=== PATIENT | female | born 1955 | race Asian ===

== ENCOUNTER 2020-01-30 06:20 | Outpatient (REF) | payer OTHER, SELFPAY ==
[2020-01-30 07:45] LABS: MANUAL DIFF FLAG NO
[2020-01-30 07:51] LABS: Basophils Absolute Auto 0.1 X10*3/uL (0.0-0.2); Basophils Percent Auto 0.6 % (0-2); Eosinophils Absolute Auto 0.3 X10*3/uL (0.0-0.4); Eosinophils Percent Auto 2.1 % (0-4); Hematocrit 41.2 % (37-47); Hemoglobin 13.5 g/dl (12.0-16.0); Imm Gran Abs Auto 0.05 X10*3/uL (0.00-0.03); Imm Gran Pct Auto 0.4 % (0.0-0.4); Lymphocytes Absolute Auto 4.1 X10*3/uL (1.2-4.9); Mean Corpuscular HGB Conc 32.8 g/dl (31.0-35.0); Mean Corpuscular Hemoglobin 29.7 pg (27.0-33.0); Mean Corpuscular Volume 90.7 fL (80-98); Monocytes Absolute Auto 0.8 X10*3/uL (0.1-1.2); Monocytes Percent Auto 6.5 % (2-11); Neutrophils Absolute Auto 7.4 X10*3/uL (2.0-8.3); Neutrophils Percent Auto 58.4 % (45-73); Platelet Count 277 X10*3/uL (160-400); Red Blood Count 4.54 X10*6/uL (4.20-5.50); Red Cell Distribution Width 12.6 % (11.0-16.0); White Blood Count 12.7 X10*3/uL (4.8-10.8)
[2020-01-30 08:13] LABS: Glucose Urine UA NEG (NEG); Leukocyte Esterase Urine TRACE (NEG); Nitrite Urine NEG (NEG); Urine Blood 1+ (NEG); Urine Ketones NEG (NEG); Urine Protein NEG (NEG-TRACE)
[2020-01-30 08:16] LABS: Appearance Urine HAZY; Color Urine YELLOW
[2020-01-30 08:20] LABS: Alanine Aminotransferase 25 U/L (0-31); Albumin Level 4.4 g/dL (3.5-5.0); Alkaline Phosphatase 77 U/L (39-117); Anion Gap 15 (12-20); Aspartate Amino Transferase 23 U/L (5-31); Bilirubin Total 0.5 mg/dL (0.0-1.0); Blood Urea Nitrogen 16 mg/dL (9-16); Calcium 9.3 mg/dL (8.4-10.2); Carbon Dioxide 26 mmol/L (22-29); Chloride 102 mmol/L (96-108); Cholesterol 160 mg/dL; Estimated Glomerular Filt Rate > 60; Glucose Fasting 100 mg/dL (60-99); HDL Cholesterol 51 mg/dL; LDL Cholesterol Calculated 67 mg/dl; Potassium 4.4 mmol/l (3.3-5.1); Sodium 139 mmol/L (135-145); Total Protein 7.5 g/dL (6.5-8.0); Triglycerides 213 mg/dL
[2020-01-30 08:30] LABS: TSH reflex Free T4 5.13 mIU/mL (0.32-4.0); Vitamin D 25-OH Total 42.2 ng/mL (>30)
[2020-01-30 08:39] LABS: Bacteria Urine 2+ /LPF; Mucus Urine 1+ /LPF; Renal Epithelial Cells Urine TRACE /LPF; Squamous Epithelial Cell Urine 1+ /LPF
[2020-01-30 09:14] LABS: Folate 5.4 ng/mL (> or = 4.0); Vitamin B12 640 pg/mL (200-900)
[2020-01-30 09:33] LABS: Free T4 (Free Thyroxine) 1.04 ng/dL (0.71-1.85)
[2020-01-30 10:09] LABS: Creatinine Urine 92.96 mg/dL; Microalbum/Creatinine Ratio Ur 7.5 ug/mg cr
== END 2020-01-30 06:21 | disposition home or self-care (01) ==
LOC: HO.LAB 06:20
PROVIDERS: Visit Provider Internal Medicine
DX: Z00.00 Encounter for general adult medical examination without abnormal findings (principal); E11.9 Type 2 diabetes mellitus without complications; E78.5 Hyperlipidemia, unspecified; R20.2 Paresthesia of skin; J30.9 Allergic rhinitis, unspecified; E55.9 Vitamin D deficiency, unspecified; E66.3 Overweight
CPT/HCPCS: 36415; 80053; 80061; 81001; 81003; 82043; 82306; 82607; 82746; 84439; 84443; 85025; 87086; 87088; 87186

== ENCOUNTER 2020-06-25 06:09 | Outpatient (REF) | payer OTHER, SELFPAY ==
[2020-06-25 07:54] LABS: MANUAL DIFF FLAG NO
[2020-06-25 08:06] LABS: Basophils Absolute Auto 0.1 X10*3/uL (0.0-0.2); Basophils Percent Auto 0.6 % (0-2); Eosinophils Absolute Auto 0.3 X10*3/uL (0.0-0.4); Eosinophils Percent Auto 3.2 % (0-4); Hematocrit 39.7 % (37-47); Hemoglobin 13.2 g/dl (12.0-16.0); Imm Gran Abs Auto 0.04 X10*3/uL (0.00-0.03); Imm Gran Pct Auto 0.4 % (0.0-0.4); Lymphocytes Absolute Auto 3.4 X10*3/uL (1.2-4.9); Lymphocytes Percent Auto 33.9 % (20-40); Mean Corpuscular HGB Conc 33.2 g/dl (31.0-35.0); Mean Corpuscular Hemoglobin 30.8 pg (27.0-33.0); Mean Corpuscular Volume 92.5 fL (80-98); Mean Platelet Volume 9.7 fL (9.4-12.3); Monocytes Absolute Auto 0.7 X10*3/uL (0.1-1.2); Neutrophils Absolute Auto 5.5 X10*3/uL (2.0-8.3); Neutrophils Percent Auto 54.9 % (45-73); Platelet Count 291 X10*3/uL (160-400); Red Blood Count 4.29 X10*6/uL (4.20-5.50); Red Cell Distribution Width 12.5 % (11.0-16.0); White Blood Count 10.1 X10*3/uL (4.8-10.8)
[2020-06-25 08:31] LABS: Glucose Urine UA NEG (NEG); Leukocyte Esterase Urine NEG (NEG); Nitrite Urine POS (NEG); PH 5.5 (5.0-8.0); Specific Gravity - Urine >= 1.030 (1.005-1.025); UACC Culture Trigger YES; Urine Blood 1+ (NEG); Urine Ketones NEG (NEG); Urine Protein NEG (NEG-TRACE)
[2020-06-25 08:32] LABS: Alanine Aminotransferase 21 U/L (0-31); Albumin Level 4.1 g/dL (3.5-5.0); Alkaline Phosphatase 80 U/L (39-117); Anion Gap 13 (12-20); Aspartate Amino Transferase 17 U/L (5-31); Bilirubin Total 0.6 mg/dL (0.0-1.0); Blood Urea Nitrogen 17 mg/dL (9-16); Calcium 9.2 mg/dL (8.4-10.2); Carbon Dioxide 27 mmol/L (22-29); Chloride 104 mmol/L (96-108); Cholesterol 183 mg/dL; Estimated Glomerular Filt Rate > 60; Glucose Fasting 151 mg/dL (60-99); HDL Cholesterol 44 mg/dL; LDL Cholesterol Calculated 104 mg/dl; Potassium 4.4 mmol/L (3.3-5.1); Sodium 140 mmol/L (135-145); Total Protein 7.1 g/dL (6.5-8.0); Triglycerides 178 mg/dL
[2020-06-25 08:37] LABS: TSH reflex Free T4 3.62 uIU/mL (0.32-4.0)
[2020-06-25 08:41] LABS: Appearance Urine HAZY; Color Urine YELLOW
[2020-06-25 08:54] LABS: Bacteria Urine 4+ /LPF; Calcium Oxalate Crystals Urine 1+ /LPF; RBC Urine 0 /HPF (0); Squamous Epithelial Cell Urine 2+ /LPF; Uric Acid Crystals Urine 1+ /LPF
[2020-06-25 09:00] LABS: Creatinine Urine 200.51 mg/dL; Microalbum/Creatinine Ratio Ur 6.9 ug/mg cr
== END 2020-06-25 06:10 | disposition home or self-care (01) ==
LOC: HO.LAB 06:09
PROVIDERS: PCP Internal Medicine; Visit Provider Internal Medicine
DX: Z00.00 Encounter for general adult medical examination without abnormal findings (principal); E66.9 Obesity, unspecified; E11.9 Type 2 diabetes mellitus without complications; E78.00 Pure hypercholesterolemia, unspecified
CPT/HCPCS: 36415; 80053; 80061; 81001; 81003; 82043; 84443; 85025; 87086; 87088; 87186

== ENCOUNTER 2021-03-05 05:50 | Outpatient (REF) | payer OTHER, SELFPAY ==
[2021-03-05 06:13] LABS: MANUAL DIFF FLAG NO
[2021-03-05 08:19] LABS: Basophils Absolute Auto 0.1 X10*3/uL (0.0-0.2); Basophils Percent Auto 0.5 % (0-2); Eosinophils Absolute Auto 0.3 X10*3/uL (0.0-0.4); Eosinophils Percent Auto 2.2 % (0-4); Hematocrit 39.7 % (37.0-47.0); Imm Gran Abs Auto 0.04 X10*3/uL (0.00-0.03); Imm Gran Pct Auto 0.4 % (0.0-0.4); Lymphocytes Absolute Auto 3.3 X10*3/uL (1.2-4.9); Lymphocytes Percent Auto 29.2 % (20-40); Mean Corpuscular HGB Conc 32.7 g/dl (31.0-35.0); Mean Corpuscular Hemoglobin 29.6 pg (27.0-33.0); Mean Corpuscular Volume 90.4 fL (80.0-98.0); Mean Platelet Volume 10.7 fL (9.4-12.3); Monocytes Absolute Auto 0.7 X10*3/uL (0.1-1.2); Monocytes Percent Auto 5.9 % (2-11); Neutrophils Percent Auto 61.8 % (45-73); Platelet Count 300 X10*3/uL (160-400); Red Blood Count 4.39 X10*6/uL (4.20-5.50); Red Cell Distribution Width 12.4 % (11.0-16.0); White Blood Count 11.3 X10*3/uL (4.8-10.8)
[2021-03-05 08:21] LABS: Appearance Urine HAZY; Color Urine YELLOW; Glucose Urine UA NEG (NEG); Leukocyte Esterase Urine NEG (NEG); Nitrite Urine POS (NEG); Specific Gravity - Urine 1.025 (1.005-1.025); UACC Culture Trigger YES; Urine Blood NEG (NEG); Urine Ketones 5 MG/DL (NEG); Urine Protein TRACE MG/DL (NEG-TRACE)
[2021-03-05 08:38] LABS: Estimated Average Glucose 154 mg/dL
[2021-03-05 08:43] LABS: Alanine Aminotransferase 22 U/L (0-31); Albumin Level 3.9 g/dL (3.5-5.0); Alkaline Phosphatase 81 U/L (39-117); Anion Gap 13 (12-20); Aspartate Amino Transferase 17 U/L (5-31); Bilirubin Total 0.5 mg/dL (0.0-1.0); Blood Urea Nitrogen 12 mg/dL (9-16); Calcium 9.1 mg/dL (8.4-10.2); Carbon Dioxide 25 mmol/L (22-29); Chloride 107 mmol/L (96-108); Cholesterol 143 mg/dL; Estimated Glomerular Filt Rate > 60; Glucose Fasting 163 mg/dL (60-99); HDL Cholesterol 39 mg/dL; LDL Cholesterol Calculated 49 mg/dl; Potassium 3.9 mmol/L (3.3-5.1); Sodium 141 mmol/L (135-145); Triglycerides 275 mg/dL
[2021-03-05 08:48] LABS: Creatinine Urine 281.32 mg/dL; Microalbum/Creatinine Ratio Ur 13.1 ug/mg cr
[2021-03-05 08:51] LABS: Bacteria Urine 3+ /LPF; Calcium Oxalate Crystals Urine 2+ /LPF; RBC Urine 0-2 /HPF (0); Squamous Epithelial Cell Urine 2+ /LPF
[2021-03-05 09:07] LABS: TSH reflex Free T4 5.17 uIU/mL (0.32-4.0); Vitamin D 25-OH Total 29.7 ng/mL (>30)
[2021-03-05 10:10] LABS: Free T4 (Free Thyroxine) 0.99 ng/dL (0.71-1.85)
== END 2021-03-05 05:51 | disposition home or self-care (01) ==
LOC: HO.LAB 05:50
PROVIDERS: PCP Internal Medicine; Visit Provider Internal Medicine
DX: E11.9 Type 2 diabetes mellitus without complications (principal); E78.00 Pure hypercholesterolemia, unspecified; E66.9 Obesity, unspecified; E55.9 Vitamin D deficiency, unspecified; J30.9 Allergic rhinitis, unspecified
CPT/HCPCS: 36415; 80053; 80061; 81001; 82043; 82306; 83036; 84439; 84443; 85025; 87086; 87088; 87186

== ENCOUNTER 2021-08-19 06:03 | Outpatient (REF) | payer OTHER, SELFPAY ==
[2021-08-19 06:28] LABS: MANUAL DIFF FLAG NO
[2021-08-19 07:28] LABS: Basophils Absolute Auto 0.1 X10*3/uL (0.0-0.2); Basophils Percent Auto 0.8 % (0-2); Eosinophils Absolute Auto 0.3 X10*3/uL (0.0-0.4); Eosinophils Percent Auto 2.6 % (0-4); Hematocrit 40.1 % (37.0-47.0); Hemoglobin 13.1 g/dl (12.0-16.0); Imm Gran Abs Auto 0.04 X10*3/uL (0.00-0.03); Imm Gran Pct Auto 0.3 % (0.0-0.4); Lymphocytes Absolute Auto 3.7 X10*3/uL (1.2-4.9); Lymphocytes Percent Auto 31.8 % (20-40); Mean Corpuscular HGB Conc 32.7 g/dl (31.0-35.0); Mean Corpuscular Hemoglobin 30.1 pg (27.0-33.0); Mean Corpuscular Volume 92.2 fL (80.0-98.0); Mean Platelet Volume 10.5 fL (9.4-12.3); Monocytes Absolute Auto 0.8 X10*3/uL (0.1-1.2); Monocytes Percent Auto 6.8 % (2-11); Neutrophils Absolute Auto 6.8 x10*3/uL (2.0-8.3); Neutrophils Percent Auto 57.7 % (45-73); Platelet Count 313 X10*3/uL (160-400); Red Blood Count 4.35 X10*6/uL (4.20-5.50); Red Cell Distribution Width 12.5 % (11.0-16.0); White Blood Count 11.8 X10*3/uL (4.8-10.8)
[2021-08-19 07:58] LABS: Alanine Aminotransferase 19 U/L (0-31); Albumin Level 4.1 g/dL (3.5-5.0); Alkaline Phosphatase 83 U/L (39-117); Anion Gap 15 (12-20); Aspartate Amino Transferase 16 U/L (5-31); Bilirubin Total 0.4 mg/dL (0.0-1.0); Blood Urea Nitrogen 20 mg/dL (9-16); Calcium 9.3 mg/dL (8.4-10.2); Carbon Dioxide 23 mmol/L (22-29); Chloride 107 mmol/L (96-108); Cholesterol 164 mg/dL; Estimated Glomerular Filt Rate > 60; Glucose Fasting 133 mg/dL (60-99); HDL Cholesterol 35 mg/dL; LDL Cholesterol Calculated 60 mg/dl; Potassium 4.2 mmol/L (3.3-5.1); Sodium 141 mmol/L (135-145); Total Protein 7.3 g/dL (6.5-8.0); Triglycerides 346 mg/dL
[2021-08-19 08:01] LABS: Estimated Average Glucose 148 mg/dL; Hemoglobin A1c % 6.8 %
[2021-08-19 08:52] LABS: Appearance Urine HAZY; Color Urine YELLOW; Glucose Urine UA NEG (NEG); Leukocyte Esterase Urine TRACE (NEG); Nitrite Urine NEG (NEG); Specific Gravity - Urine 1.025 (1.005-1.025); UACC Culture Trigger NO; Urine Blood TRACE (NEG); Urine Ketones NEG (NEG); Urine Protein NEG (NEG-TRACE)
[2021-08-19 09:10] LABS: Bacteria Urine 3+ /LPF; Squamous Epithelial Cell Urine 2+ /LPF; UACC CULT YES
[2021-08-19 09:36] LABS: Creatinine Urine 153.94 mg/dL; Microalbum/Creatinine Ratio Ur 7.1 ug/mg cr
== END 2021-08-19 06:04 | disposition home or self-care (01) ==
LOC: HO.LAB 06:03
PROVIDERS: PCP Internal Medicine; Visit Provider Internal Medicine
DX: E11.9 Type 2 diabetes mellitus without complications (principal); E78.00 Pure hypercholesterolemia, unspecified; E55.9 Vitamin D deficiency, unspecified; J30.9 Allergic rhinitis, unspecified; B96.20 Unspecified Escherichia coli [E. coli] as the cause of diseases classified elsewhere; Z16.20 Resistance to unspecified antibiotic
CPT/HCPCS: 36415; 80053; 80061; 81001; 82043; 82306; 83036; 84439; 84443; 85025; 87086; 87088; 87186

== ENCOUNTER 2022-03-13 07:18 | Outpatient (REF) | payer OTHER, SELFPAY ==
[2022-03-13 07:36] LABS: MANUAL DIFF FLAG NO
[2022-03-13 07:56] LABS: Basophils Absolute Auto 0.1 X10*3/uL (0.0-0.2); Basophils Percent Auto 0.6 % (0-2); Eosinophils Absolute Auto 0.2 X10*3/uL (0.0-0.4); Hematocrit 39.9 % (37.0-47.0); Hemoglobin 13.2 g/dl (12.0-16.0); Imm Gran Abs Auto 0.03 X10*3/uL (0.00-0.03); Imm Gran Pct Auto 0.3 % (0.0-0.4); Lymphocytes Absolute Auto 3.7 X10*3/uL (1.2-4.9); Lymphocytes Percent Auto 36.9 % (20-40); Mean Corpuscular HGB Conc 33.1 g/dl (31.0-35.0); Mean Corpuscular Volume 90.7 fL (80.0-98.0); Mean Platelet Volume 9.8 fL (9.4-12.3); Monocytes Absolute Auto 0.6 X10*3/uL (0.1-1.2); Monocytes Percent Auto 6.4 % (2-11); Neutrophils Absolute Auto 5.3 x10*3/uL (2.0-8.3); Neutrophils Percent Auto 53.8 % (45-73); Platelet Count 268 X10*3/uL (160-400); Red Cell Distribution Width 12.7 % (11.0-16.0); White Blood Count 9.9 X10*3/uL (4.8-10.8)
[2022-03-13 08:11] LABS: Estimated Average Glucose 146 mg/dL; Hemoglobin A1c % 6.7 %
[2022-03-13 09:04] LABS: Appearance Urine Cloudy; Color Urine Dark Yellow; Glucose Urine UA Negative (Negative); Leukocyte Esterase Urine Small (1+) (Negative); Nitrite Urine Negative (Negative); PH 5.5 (5.0-9.0); Specific Gravity - Urine 1.025 (1.005-1.025); UMIC TRIGGER UACC YES; Urine Blood Negative (Negative); Urine Ketones Trace mg/dL (Negative); Urine Protein Trace mg/dL (Neg-Trace)
[2022-03-13 09:09] LABS: Bacteria Urine 4+ (None Seen); Hyaline Casts Urine 0-2 /LPF (0-2); RBC Urine 0-2 /HPF (0-2); UACC Culture Trigger YES; WBC Urine 21-50 /HPF (0-5)
[2022-03-13 10:06] LABS: Creatinine Urine 258.52 mg/dL; Microalbum/Creatinine Ratio Ur 13.1 ug/mg cr
[2022-03-13 10:50] LABS: Alanine Aminotransferase 21 U/L (0-31); Albumin Level 4.1 g/dL (3.5-5.0); Alkaline Phosphatase 78 U/L (39-117); Anion Gap 9 (12-20); Aspartate Amino Transferase 18 U/L (5-31); Bilirubin Total 0.8 mg/dL (0.0-1.0); Blood Urea Nitrogen 11 mg/dL (9-16); Calcium 9.3 mg/dL (8.4-10.2); Carbon Dioxide 30 mmol/L (22-29); Chloride 104 mmol/L (96-108); Estimated Glomerular Filt Rate > 60; Glucose Fasting 150 mg/dL (60-99); Potassium 4.2 mmol/L (3.3-5.1); Sodium 139 mmol/L (135-145); Thyroid Stimulating Hormone 3.88 uIU/mL (0.32-4.0); Total Protein 7.1 g/dL (6.5-8.0); Vitamin D 25-OH Total 43.5 ng/mL (>30)
[2022-03-13 11:32] LABS: Free T4 (Free Thyroxine) 1.03 ng/dL (0.71-1.85)
[2022-03-15 09:13] LABS: Thyroid Peroxidase Antibodies 13 IU/mL (<9)
== END 2022-03-13 07:19 | disposition home or self-care (01) ==
LOC: HO.LAB 07:18
PROVIDERS: PCP Internal Medicine; Visit Provider Internal Medicine
DX: E03.9 Hypothyroidism, unspecified (principal); R79.89 Other specified abnormal findings of blood chemistry; E11.9 Type 2 diabetes mellitus without complications; E78.00 Pure hypercholesterolemia, unspecified; E55.9 Vitamin D deficiency, unspecified; I10 Essential (primary) hypertension
CPT/HCPCS: 36415; 80053; 81001; 81003; 82043; 82306; 83036; 84439; 84443; 85025; 86376; 87086; 87088; 87186

== ENCOUNTER 2022-03-26 06:00 | Outpatient (REF) | payer OTHER, SELFPAY ==
[2022-03-26 08:10] LABS: Cholesterol 168 mg/dL; HDL Cholesterol 45 mg/dL; LDL Cholesterol Calculated 53 mg/dl; Triglycerides 351 mg/dL
[2022-03-26 10:40] LABS: Appearance Urine Hazy; Color Urine Yellow; Glucose Urine UA Negative (Negative); Leukocyte Esterase Urine Negative (Negative); Nitrite Urine Negative (Negative); PH 5.5 (5.0-9.0); Specific Gravity - Urine >= 1.030 (1.005-1.025); UMIC TRIGGER UACC YES; Urine Blood Small (1+) (Negative); Urine Ketones Negative (Negative); Urine Protein Negative (Neg-Trace)
[2022-03-26 11:03] LABS: Bacteria Urine 4+ (None Seen); Calcium Oxalate Crystals Urine Present; UACC Culture Trigger YES
== END 2022-03-26 06:01 | disposition home or self-care (01) ==
LOC: HO.LAB 06:00
PROVIDERS: PCP Internal Medicine; Visit Provider Internal Medicine
DX: Z01.84 Encounter for antibody response examination (principal); E78.00 Pure hypercholesterolemia, unspecified; Z28.39 Other underimmunization status
CPT/HCPCS: 36415; 80061; 81001; 81003; 86787; 87086; 87088; 87186

== ENCOUNTER 2022-08-06 14:26 | Outpatient (REF) | payer OTHER, SELFPAY ==
[2022-08-06 18:11] LABS: CT PCR NOT DETECTED (Not Detect.); NG PCR NOT DETECTED (Not Detect.)
[2022-08-07 09:02] LABS: BV Int Neg Control Negative (Negative); BV Int Pos Control Positive (Positive)
== END 2022-08-06 14:27 | disposition home or self-care (01) ==
LOC: HO.LAB 14:26
PROVIDERS: PCP Internal Medicine; Visit Provider Advanced Practice Midwife
DX: N89.8 Other specified noninflammatory disorders of vagina (principal); Z20.2 Contact with and (suspected) exposure to infections with a predominantly sexual mode of transmission
CPT/HCPCS: 0353U; 87480; 87510; 87660

== ENCOUNTER 2022-08-06 14:54 | Outpatient (REF) | payer OTHER, SELFPAY ==
[2022-08-13 08:04] LABS: HPV mRNA E6/E7 rflx Not Detected (Not Detected)
== END 2022-08-06 14:55 | disposition home or self-care (01) ==
LOC: HO.LNP 14:54
PROVIDERS: Visit Provider Advanced Practice Midwife
DX: Z01.419 Encounter for gynecological examination (general) (routine) without abnormal findings (principal); Z11.51 Encounter for screening for human papillomavirus (HPV)
CPT/HCPCS: 87624; 88142

== ENCOUNTER 2022-08-22 10:28 | Outpatient (REF) | payer OTHER, SELFPAY ==
--- NOTE | ~2022-08-22 | US_ITS ---
EXAM: Pelvic Ultrasound CLINICAL INDICATION: Intra-abdominal and pelvic swelling. COMPARISON: CT abdomen pelvis 06/21/2013 TECHNIQUE: The pelvis was evaluated using transabdominal and transvaginal imaging. FINDINGS: The uterus measures 9.6 x 3.8 x 4.5 cm in longitudinal by AP by transverse dimension. There is overall heterogeneous uterine echotexture with a few small fibroids noted, largest measuring 1.8 cm. The endometrial stripe measures 8 mm in thickness. The left ovary measures approximately 2.0 x 1.1 x 1.7 cm and is normal. The right ovary was not clearly visualized. There are no abnormal adnexal masses. There is no free fluid in the pelvis. US/US pelvic and transvaginal IMPRESSION: 1. Endometrium measures 8 mm in thickness. Neoplasm not excluded. Direct inspection/biopsy likely warranted. 2. Small uterine fibroids. 3. Right ovary not clearly visualized.
== END 2022-08-22 10:29 | disposition home or self-care (01) ==
LOC: HO.US 10:28
PROVIDERS: PCP Internal Medicine; Visit Provider Advanced Practice Midwife
DX: R19.00 Intra-abdominal and pelvic swelling, mass and lump, unspecified site (principal)
CPT/HCPCS: 76830; 76856

== ENCOUNTER → 2022-09-09 07:40 | Outpatient (BNVA) | payer OTHER, SELFPAY | PROVIDERS: PCP Internal Medicine; Visit Provider Advanced Practice Midwife | DX: Z71.2 Person consulting for explanation of examination or test findings (principal); D25.9 Leiomyoma of uterus, unspecified | CPT/HCPCS: 99212 ==

== ENCOUNTER 2022-10-15 06:23 | Outpatient (REF) | payer OTHER, SELFPAY ==
[2022-10-15 06:39] LABS: MANUAL DIFF FLAG NO
[2022-10-15 07:14] LABS: Basophils Absolute Auto 0.1 X10*3/uL (0.0-0.2); Basophils Percent Auto 0.7 % (0-2); Eosinophils Absolute Auto 0.2 X10*3/uL (0.0-0.4); Eosinophils Percent Auto 2.6 % (0-4); Hematocrit 38.1 % (37.0-47.0); Hemoglobin 12.5 g/dl (12.0-16.0); Imm Gran Abs Auto 0.02 X10*3/uL (0.00-0.03); Imm Gran Pct Auto 0.2 % (0.0-0.4); Lymphocytes Absolute Auto 2.7 X10*3/uL (1.2-4.9); Lymphocytes Percent Auto 31.5 % (20-40); Mean Corpuscular HGB Conc 32.8 g/dl (31.0-35.0); Mean Corpuscular Volume 91.6 fL (80.0-98.0); Mean Platelet Volume 10.4 fL (9.4-12.3); Monocytes Absolute Auto 0.6 X10*3/uL (0.1-1.2); Monocytes Percent Auto 6.7 % (2-11); Neutrophils Percent Auto 58.3 % (45-73); Platelet Count 227 X10*3/uL (160-400); Red Blood Count 4.16 X10*6/uL (4.20-5.50); Red Cell Distribution Width 12.6 % (11.0-16.0); White Blood Count 8.6 X10*3/uL (4.8-10.8)
[2022-10-15 07:27] LABS: Estimated Average Glucose 131 mg/dL; Hemoglobin A1c % 6.2 %
[2022-10-15 07:54] LABS: Alanine Aminotransferase 15 U/L (0-31); Albumin Level 3.9 g/dL (3.5-5.0); Alkaline Phosphatase 59 U/L (39-117); Anion Gap 14 (12-20); Aspartate Amino Transferase 13 U/L (5-31); Bilirubin Total 0.6 mg/dL (0.0-1.0); Blood Urea Nitrogen 14 mg/dL (9-16); Carbon Dioxide 22 mmol/L (22-29); Chloride 111 mmol/L (96-108); Cholesterol 129 mg/dL; Estimated Glomerular Filt Rate > 60; Glucose Fasting 132 mg/dL (60-99); HDL Cholesterol 37 mg/dL; LDL Cholesterol Calculated 62 mg/dl; Potassium 3.9 mmol/L (3.3-5.1); Sodium 143 mmol/L (135-145); Total Protein 6.9 g/dL (6.5-8.0); Triglycerides 153 mg/dL
[2022-10-15 08:12] LABS: Free T4 (Free Thyroxine) 0.92 ng/dL (0.71-1.85); Thyroid Stimulating Hormone 2.58 uIU/mL (0.32-4.0); Vitamin D 25-OH Total 42.8 ng/mL (>30)
[2022-10-15 09:28] LABS: Appearance Urine Clear; Color Urine Yellow; Glucose Urine UA Negative (Negative); Leukocyte Esterase Urine Trace (Negative); Nitrite Urine Positive (Negative); Specific Gravity - Urine 1.015 (1.005-1.025); UMIC TRIGGER UACC YES; Urine Blood Trace (Negative); Urine Ketones Negative (Negative); Urine Protein Negative (Neg-Trace)
[2022-10-15 09:37] LABS: Bacteria Urine 4+ (None Seen); Hyaline Casts Urine 0-2 /LPF (0-2); UACC Culture Trigger YES
[2022-10-15 10:53] LABS: Creatinine Urine 99.34 mg/dL
== END 2022-10-15 06:24 | disposition home or self-care (01) ==
LOC: HO.LAB 06:23
PROVIDERS: PCP Internal Medicine; Visit Provider Internal Medicine
DX: I10 Essential (primary) hypertension (principal); E11.9 Type 2 diabetes mellitus without complications; E03.9 Hypothyroidism, unspecified; E55.9 Vitamin D deficiency, unspecified; E78.00 Pure hypercholesterolemia, unspecified; R30.0 Dysuria
CPT/HCPCS: 36415; 80053; 80061; 81001; 82043; 82306; 83036; 84439; 84443; 85025; 87086; 87088; 87186

== ENCOUNTER 2022-10-20 14:07 | Outpatient (AMB) | payer OTHER, SELFPAY ==
[2022-10-20 14:08] VITALS: BP 120/78; PULSE 62; O2SAT 98; BMI 26.6
--- NOTE | 2022-10-20 14:08 | A.OFFPC_ITS ---
Vital Signs 10/20/22 14:08 Height 5 ft 1 in Weight 141 lb BMI 26.6 BP 120/78 Blood Pressure Location Lt brachial Position Sitting Pulse 62 Pulse Source Pulse Oximeter Pulse Oximetry (%) 98 Oxygen Delivery Method Room Air Intake Visit Reasons: 6mth f/u Helpdesk Analyst Required: No Accompanied by: Spouse Allergies Sulfa (Sulfonamide Antibiotics) [SULFA (SULFONAMIDE ANTIBIOTICS)] Allergy (Unknown, Verified 10/20/22 14:41) HIVES, THROAT SWELLING Medication List - Last Reconciled 10/20/22 by Rambo Melchor MD aspirin 81 mg PO DAILY 90 days atorvastatin (Lipitor) 40 mg PO DAILY 90 days blood sugar diagnostic (FreeStyle Lite Strips) As directed once a day cetirizine 10 mg PO DAILY PRN 90 days fluticasone propionate 50 mcg/actuation 2 sprays intranasal DAILY PRN 90 days ibuprofen 800 mg PO Q8H PRN 10 days lancets (FreeStyle Lancets) As directed once a day levothyroxine 25 mcg PO DAILY 90 days metformin ER 500 mg PO BID 90 days Tobacco use date assessed: 10/20/22 Fall risk assessment: No Falls in past year Last assessed Fall Risk: 10/20/22 Dental Screening Dental Screen Date: 10/20/22 Did you have a dental visit in the last 12 months?: Yes Did you have a dental problem in the last 6 months where you did not have access to dental care?: No Was dental information given to patient?: Patient has dentist HPI 6mth f/u HPI Details Patient comes in today for her follow up visit States that she feels okay She denies any headaches or dizziness Still has on and off neck pains but states that her neck pain has been mostly manageable Denies any chest pains, no SOB No nausea/vomiting, no abdominal pain No change in bowel habits noted Had her follow up labs done a few days ago - to discuss her results [facility] Medical History Allergic rhinitis Cervical disc herniation Diabetes mellitus Overweight (BMI 25.0-29.9) Pelvic fullness in female Pure hypercholesterolemia Subclinical hypothyroidism Uterine fibroid Vitamin D deficiency Surgical History History of cervical spinal surgery History of colonoscopy (~12/2014) Family History Father Stroke Mother Diabetes Hypertension Daughter Cervical cancer Social History Housing: House Alcohol intake: current Alcohol intake frequency: holidays/special occasions only Patient Tobacco Use Status: Former Tobacco user e-Cigarette/Vaping Use: Never Used Second Hand Smoke Exposure: Yes service: No Current occupational status: unemployed Sexual orientation: Straight/Heterosexual Gender identity: Female Cognitive needs: No Hearing needs: No Vision needs: Yes Questionnaire PHQ-9 Over the last 2 weeks, how often have you been bothered by any of the following problems? 1. Little interest or pleasure in doing things: not at all 2. Feeling down, depressed, or hopeless: not at all 3. Trouble falling or staying asleep, or sleeping too much: not at all 4. Feeling tired or having little energy: not at all 5. Poor appetite or overeating: not at all 6. Feeling bad about yourself - or that you are a failure or have let yourself o r your family down: not at all 7. Trouble concentrating on things, such as reading the newspaper or watching television: not at all 8. Moving or speaking so slowly that other people could have noticed. Or the opposite - being so fidgety or restless that you have been moving around a lot more than usual: not at all 9. Thoughts that you would be better off or of hurting yourself in some way: not at all Total score: 0 Depression Screening Interpretation: Negative 90612 - PHQ-9 Billing: Yes Source: Developed by Drs. Rick Lima, Crissy Luis, Farzad Matute and colleagues, with an educational andrew from [employer]. Thrive Questionnaire Date Thrive assessed: 10/20/22 I am a: Patient What is your living situation today?: I have a steady place to live Within the past 12 months, did the food you bought not last and you didn't have the money to get more?: Never true Within the past 12 months, did you worry whether your food would run out before you got money to buy more?: Never true Do you have trouble paying for medicines?: No Do you have trouble getting transportation to medical appointments?: No Do you have trouble paying your heating and electricity bill?: No Do you have trouble taking care of your child, family member or friend?: No Do you have trouble with day-to-day activities such as bathing, preparing meals, shopping, managing finances, etc.?: No Are you currently unemployed and looking for a job?: No Are you interested in more education?: No Please select the resources that you would like help with: None Currently or been in a relationship where the following occur: no concerns reported AUDIT C Alcohol Use Questionnaire (AUDIT-C) 1. How often do you have a drink containing alcohol?: Monthly or less 2. How many drinks containing alcohol do you have on a typical day when you are drinking?: 1 or 2 3. How often do you have six or more drinks on one occasion?: Never Total Score: 1 Score Reviewed/Action Taken: Yes NACHO-7 AMB Questionnaire NACHO-7 Date NACHO - 7 assessed: 10/20/22 Feeling nervous, anxious, or on edge: 0 = Not at all Not being able to stop or control worryin = Not at all Worrying too much about different things: 0 = Not at all Trouble relaxin = Not at all Being so restless that it is hard to sit still: 0 = Not at all Becoming easily annoyed or irritable: 0 = Not at all Feeling afraid as if something awful might happen: 0 = Not at all Total NACHO-7 score (0-4 normal; 5-9 mild; 10-14 moderate; 15-21 severe): 0 Source: Developed by Drs. Rick Lima, Crissy Luis, Farzad Matute and colleagues, with an educational andrew from [employer]. Review of Systems Const Denies difficulty sleeping, Denies fatigue, Denies fever(s) and Denies headache(s) ENT Denies dysphagia, Denies dizziness, Denies otalgia, Denies headache(s), Reports neck pain (occasionally) and Denies sore throat Card Denies chest pain, Denies palpitations and Denies dyspnea Resp Denies cough, Denies dyspnea and Denies wheezing GI Denies abdominal pain, Denies constipation, Denies dysphagia, Denies heartburn, Denies diarrhea, Denies nausea and Denies vomiting Denies difficulty voiding, Denies nocturia, Denies dysuria and Denies urinary urgency Musc Denies back pain, Denies arthralgias and Reports neck pain (occasionally) Skin/Breast Denies rash Neuro Denies dizziness and Denies headache(s) Psych Denies anxiety Endo Denies fatigue and Denies palpitations Aller/Immun Denies wheezing Physical exam (Primary Care) Vital Signs: Last Vital Signs Pulse 62 10/20/22 14:08 BP 120/78 10/20/22 14:08 Pulse Ox 98 10/20/22 14:08 Oxygen Delivery Method Room Air 10/20/22 14:08 BMI result Body Mass Index 26.6 Tobacco/Smoking Status: Tobacco use Status Tobacco use date assessed 10/20/22 10/20/22 14:12 Patient Tobacco Use Status Former Tobacco user 10/20/22 14:12 e-Cigarette/Vaping Use Never Used 10/20/22 14:12 PHQ-9: PHQ-9 Score PHQ-9: Total score 0 10/20/22 14:12 Depression Screening Interpretation: Negative Thrive Assessment: Date of Thrive Assessment Date Thrive assessed 10/20/22 10/20/22 14:12 Currently or been in a relationship where the following occur: no concerns repo rted Const General: no acute distress and alert HENMT Ears: TM's normal bilaterally and EAC's normal Throat: Yes posterior oropharynx normal and Yes tonsils normal Neck Neck: Yes no lymphadenopathy and Yes supple Thyroid: Thyroid normal Resp Auscultation: clear to auscultation bilaterally, no rales and no wheezes Cardio Rate: regular rate Rhythm: regular rhythm Heart sounds: no murmurs GI Palpation (GI): Soft to palpation and nontender Auscultation: normal bowel sounds General: Yes no CVA tenderness Back/Spine/Pelvis Back: no CVA tenderness Cervical Spine: Cervical spine tenderness (mild) Thoracic/Lumbar Spine: thoracic and lumbar spine normal to inspection Skin Rashes: no rashes Extrem General: Yes no clubbing, cyanosis or edema Results Reviewed Results Reviewed: Laboratory Tests 10/15/22 10/15/22 10/15/22 06:38 06:38 06:38 WBC 8.6 Hgb 12.5 Hct 38.1 Plt Count 227 Sodium 143 Potassium 3.9 Creatinine 0.74 Estimated GFR > 60 Fasting Glucose 132 H Hemoglobin A1c % Calcium 9.0 AST 13 ALT 15 Triglycerides 153 Cholesterol 129 LDL Cholesterol, Calc 62 HDL Cholesterol 37 25-OH Vitamin D Total 42.8 TSH 2.58 Free T4 0.92 Ur Specific [place] 1.015 Urine Protein Negative Urine Glucose (UA) Negative Urine Blood Trace H Microalb/Creat Ratio 10/15/22 10/15/22 06:38 06:38 WBC Hgb Hct Plt Count Sodium Potassium Creatinine Estimated GFR Fasting Glucose Hemoglobin A1c % 6.2 Calcium AST ALT Triglycerides Cholesterol LDL Cholesterol, Calc HDL Cholesterol 25-OH Vitamin D Total TSH Free T4 Ur Specific [place] Urine Protein Urine Glucose (UA) Urine Blood Microalb/Creat Ratio 8.0 Assessment and Plan Assessment & Plan (1) Pure hypercholesterolemia: Code(s): E78.00 - Pure hypercholesterolemia, unspecified Plan: Results of her labs done a few days ago reviewed and discussed with patient Reinforced low cholesterol diet Continue Atorvastatin 40 mg QD Will recheck her labs in 6 months for follow up (2) Diabetes mellitus: Code(s): E11.9 - Type 2 diabetes mellitus without complications Qualifiers: Diabetes mellitus type: type 2 Diabetes mellitus intermediate insulin use: without intermediate use Diabetes mellitus complication status: without complication Qualified Code(s): E11.9 - Type 2 diabetes mellitus without complications Plan: HgbA1c was at 6.2% on her labs done a few days ago (was previously at 6.7% a few months ago) - goal is < 7.0% Reinforced?diabetic diet Continue Metformin ER 500 mg BID (3) Subclinical hypothyroidism: Code(s): E03.8 - Other specified hypothyroidism Plan: TFTs have remained normal on her recent labs Continue Levothyroxine 25 mcg QD Will recheck her TFTs again in 6 months for follow up (4) Allergic rhinitis: Code(s): J30.9 - Allergic rhinitis, unspecified Qualifiers: Allergic rhinitis trigger: unspecified Allergic rhinitis seasonality: unspecified Qualified Code(s): J30.9 - Allergic rhinitis, unspecified Plan: Continue Cetirizine 10 mg QD PRN and Fluticasone nasal spray QD PRN (5) Cervical disc herniation: Comment: S/P ACDF at C3 and C4 with Dr. Humberto Vazquez in 09/2017 Code(s): M50.20 - Other cervical disc displacement, unspecified cervical region Plan: States that her neck pains have been mostly manageable Advised to continue performing the neck exercises that she was previously taught by physical therapy on a regular basis to help manage her neck symptoms Follow up with neurosurgery at [facility] as scheduled Was reportedly sent for a repeat cervical spine MRI at [facility] last year and was advised that there were no significant changes seen on her recent MRI (6) Vitamin D deficiency: Code(s): E55.9 - Vitamin D deficiency, unspecified Plan: Corrected - continue OTC Vitamin D3 2000 units QD (7) Overweight (BMI 25.0-29.9): Code(s): E66.3 - Overweight Plan: Reinforced diet/exercise as tolerated/lose weight Plan To return in 6 months for her next annual physical examination Orders: Orders Comprehensive [place]. Panel Fast 6 Months E78.00 - Pure hypercholesterolemia, unspecified Hemoglobin A1c 6 Months E11.9 - Type 2 diabetes mellitus without complications Lipid Panel 6 Months E78.00 - Pure hypercholesterolemia, unspecified Free T4 (Free Thyroxine) 6 Months E03.9 - Hypothyroidism, unspecified Thyroid Stimulating Hormone 6 Months E03.9 - Hypothyroidism, unspecified Vitamin D 25-OH Total 6 Months E55.9 - Vitamin D deficiency, unspecified Microalbumin, Random (w Creat) 6 Months E11.9 - Type 2 diabetes mellitus without complications Complete Blood Count Auto Diff 6 Months I10 - Essential (primary) hypertension UA CC w/rflx Micro + Cult 6 Months R30.0 - Dysuria Coding Level of Care Code Est Pt Level 4 (87494) Diagnoses Pure hypercholesterolemia E78.00 Diabetes mellitus E11.9 Diabetes mellitus type: type 2 Diabetes mellitus 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
== END 2022-10-20 15:02 | disposition home or self-care (01) ==
PROVIDERS: PCP Internal Medicine; Visit Provider Internal Medicine
DX: E78.00 Pure hypercholesterolemia, unspecified (principal); E11.9 Type 2 diabetes mellitus without complications; E03.8 Other specified hypothyroidism; E55.9 Vitamin D deficiency, unspecified; J30.9 Allergic rhinitis, unspecified; M50.20 Other cervical disc displacement, unspecified cervical region; E66.3 Overweight
CPT/HCPCS: 99214

== ENCOUNTER 2023-02-17 10:53 | Outpatient (REF) | payer OTHER, SELFPAY ==
--- NOTE | ~2023-02-17 | US_ITS ---
EXAMINATION: US PELVIS CLINICAL INFORMATION: Uterine leiomyoma. COMPARISON: 08/22/2022 TECHNIQUE: Ultrasound of the pelvis is performed using both transabdominal and transvaginal transducers along with Doppler. Transvaginal imaging is performed due to inadequate visualization transabdominally. FINDINGS: Uterus: The uterus is anteverted and measures 8.6 x 3.2 x 4.8 cm for a volume of 69 mL. The double wall endometrial thickness is 7 mm. Three uterine fibroids are present with one in the lower uterine segment on the right which has increased in size from 1.2 x 1.3 x 1.2 cm to 1.7 x 1.6 x 1.3 cm. There is a left-sided mid body fibroid which has decreased in size from 1.8 x 1.5 x 1.7 cm to 1.6 x 1.4 x 1.7 cm. There is a new uterine fibroid seen on the current study in the left uterine body measuring about 1.4 cm in size. Adnexa: Both ovaries are visualized. There is normal color flow to the adnexa. There is no ovarian torsion. There is no pelvic ascites or fluid collection. Right ovary measures 1.9 x 0.8 x 1.4 cm for a volume of 1.1 mL and appears unremarkable. Left ovary measures 1.6 x 1.4 x 1.1 cm for a volume of 1.3 mL and appears unremarkable. US/US pelvic and transvaginal IMPRESSION: Uterine fibroids as described above.
== END 2023-02-17 10:54 | disposition home or self-care (01) ==
LOC: HO.US 10:53
PROVIDERS: PCP Internal Medicine; Visit Provider Advanced Practice Midwife
DX: D25.9 Leiomyoma of uterus, unspecified (principal)
CPT/HCPCS: 76830; 76856

== ENCOUNTER 2023-03-25 08:20 | Outpatient (AMB) | payer OTHER, SELFPAY ==
--- NOTE | 2023-03-25 08:20 | MHC.OFFVIS ---
Intake Intake Visit Reasons: TV ultrasound follow up Associate Dean Of Women Required: No Dress Cutter: Dress Cutter Present Allergies Sulfa (Sulfonamide Antibiotics) [SULFA (SULFONAMIDE ANTIBIOTICS)] Allergy (Unknown, Verified 03/25/23 08:30) HIVES, THROAT SWELLING Is last menstrual period known: No Post menopausal: Yes Patient : No HPI HPI Comments History of Present Illness Details Tele [place] visit 08:41-08:47. Phone call due to Covid 19 Pandemic/inclement weather. I spent 6 minutes speaking with the patient on the phone plus an additional 5 minutes reviewing the chart and 5 minutes updating the medical record for a total of 16minutes. Patient presents via phone to discuss: Ultrasound results, history of fibroids. She reports feeling well with no pelvic pain, bloating, pressure, or vaginal bleeding. [facility] Medical History Uterine fibroid Pelvic fullness in female Subclinical hypothyroidism Overweight (BMI 25.0-29.9) Vitamin D deficiency Cervical disc herniation Allergic rhinitis Diabetes mellitus Pure hypercholesterolemia Surgical History History of colonoscopy (~12/2014) History of cervical spinal surgery Family History Father Stroke Mother Diabetes Hypertension Daughter Cervical cancer Social History Housing: House Alcohol intake: current Alcohol intake frequency: holidays/special occasions only Patient Tobacco Use Status: Former Tobacco user e-Cigarette/Vaping Use: Never Used Second Hand Smoke Exposure: Yes Patient : No service: No Current occupational status: unemployed Sexual orientation: Straight/Heterosexual Gender identity: Female Cognitive needs: No Hearing needs: No Vision needs: Yes Female Reproductive History Menstrual control method: none Review of Systems Const All systems reviewed & are unremarkable except as noted in HPI and below Endo Reports no additional complaints Physical Exam Const General: cooperative, healthy appearing and no acute distress Psych Appearance: well kempt Attitude: cooperative Thought process: Normal thought process present Results Reviewed Results Reviewed: [address] [address] Ultrasound Report Signed Patient: Velia Ye MR#: [id number] : 1955 Acct:[id number] Age/Sex: 67 / F ADM Date: 02/17/23 Loc: HO.US Attending Dr: Bella Neal CNM Ordering Physician: Bella Neal CNM Date of Service: 02/17/23 Procedure(s): US pelvic and transvaginal Accession Number(s): [id number] cc: Rambo Melchor MD; Bella Neal CNM~ EXAMINATION: US PELVIS CLINICAL INFORMATION: Uterine leiomyoma. COMPARISON: 08/22/2022 TECHNIQUE: Ultrasound of the pelvis is performed using both transabdominal and transvaginal transducers along with Doppler. Transvaginal imaging is performed due to inadequate visualization transabdominally. FINDINGS: Uterus: The uterus is anteverted and measures 8.6 x 3.2 x 4.8 cm for a volume of 69 mL. The double wall endometrial thickness is 7 mm. Three uterine fibroids are present with one in the lower uterine segment on the right which has increased in size from 1.2 x 1.3 x 1.2 cm to 1.7 x 1.6 x 1.3 cm. There is a left-sided mid body fibroid which has decreased in size from 1.8 x 1.5 x 1.7 cm to 1.6 x 1.4 x 1.7 cm. There is a new uterine fibroid seen on the current study in the left uterine body measuring about 1.4 cm in size. Adnexa: Both ovaries are visualized. There is normal color flow to the adnexa. There is no ovarian torsion. There is no pelvic ascites or fluid collection. Right ovary measures 1.9 x 0.8 x 1.4 cm for a volume of 1.1 mL and appears unremarkable. Left ovary measures 1.6 x 1.4 x 1.1 cm for a volume of 1.3 mL and appears unremarkable. US/US pelvic and transvaginal IMPRESSION: Uterine fibroids as described above. Dictated By: Mike Ivan MD Signed By: <Electronically signed by Mike Ivan MD in OV> 02/20/23 0928 DD/ 1120 TD/TT: Executive Sales Assistant: SS Assessment & Plan Assessment & Plan (1) Encounter to discuss test results: Code(s): Z71.2 - Person consulting for explanation of examination or test findings Plan Discussed: Ultrasound results today patient and present on video. Counseled re: Leiomyoma: common pelvic neoplasm. Differential diagnosis-may include leiomyosarcoma which is a rare uterine sarcoma 3-7/100,000, difficult to distinguish from fibroids on ultrasound from uterine sarcoma's. Unlikely any single test will have a highly positive predictive value. Hysterectomy is not recommended for sole purpose of excluding malignant neoplasm. Report any PMB/AUB. Pelvic pressure, bloating, or pain. Expectant management follow up in 6 months. Referral to MD if indicated for level of care pending results. Schedule follow-up visit for test results. All of her questions and concerns were addressed to the best of my ability and shared decision making. She is agreeable to the plan of care. This note is constructed using voice recognition software. While every effort has been made to ensure accuracy, supervisor roller printing errors may have been included. Orders: Orders US pelvic and transvaginal 5 Months D25.9 - Leiomyoma of uterus, unspecified Patient Instructions: Telehealth Telehealth Location of provider rendering services: practice address Location of patient: address on file Patient Identification confirmed using: Name, : Yes Telehealth method: video Patient verbally consented to treatment: Yes Patient verbally consented to billing insurance company: Yes Patient informed of any privacy concerns related to visit: Yes Coding Level of Care Code Tele Est Pt Level 3 (38639) Diagnoses Encounter to discuss test results Z71.2
== END 2023-03-25 09:13 | disposition home or self-care (01) ==
LOC: HO.HWS 08:20
PROVIDERS: PCP Internal Medicine; Visit Provider Advanced Practice Midwife
DX: D25.9 Leiomyoma of uterus, unspecified (principal); Z71.2 Person consulting for explanation of examination or test findings
CPT/HCPCS: 99213

== ENCOUNTER → 2023-03-25 08:20 | Outpatient (BNVA) | payer OTHER, SELFPAY | PROVIDERS: PCP Internal Medicine; Visit Provider Advanced Practice Midwife ==

== ENCOUNTER 2023-04-09 06:03 | Outpatient (REF) | payer OTHER, SELFPAY ==
[2023-04-09 06:24] LABS: MANUAL DIFF FLAG NO
[2023-04-09 07:56] LABS: Appearance Urine Clear; Color Urine Yellow; Glucose Urine UA Negative (Negative); Leukocyte Esterase Urine Small (1+) (Negative); Nitrite Urine Negative (Negative); PH 5.5 (5.0-9.0); UMIC TRIGGER UACC YES; Urine Blood Small (1+) (Negative); Urine Ketones Negative (Negative); Urine Protein Negative (Neg-Trace)
[2023-04-09 07:59] LABS: Estimated Average Glucose 146 mg/dL; Hemoglobin A1c % 6.7 % (<6.0)
[2023-04-09 08:01] LABS: Basophils Absolute Auto 0.1 X10*3/uL (0.0-0.2); Basophils Percent Auto 0.6 % (0-2); Eosinophils Absolute Auto 0.2 X10*3/uL (0.0-0.4); Eosinophils Percent Auto 1.9 % (0-4); Hematocrit 42.1 % (37.0-47.0); Imm Gran Abs Auto 0.03 X10*3/uL (0.00-0.03); Imm Gran Pct Auto 0.3 % (0.0-0.4); Lymphocytes Absolute Auto 3.1 X10*3/uL (1.2-4.9); Mean Corpuscular HGB Conc 33.3 g/dl (31.0-35.0); Mean Corpuscular Hemoglobin 30.6 pg (27.0-33.0); Mean Corpuscular Volume 91.9 fL (80.0-98.0); Mean Platelet Volume 10.4 fL (9.4-12.3); Monocytes Absolute Auto 0.6 X10*3/uL (0.1-1.2); Monocytes Percent Auto 5.6 % (2-11); Neutrophils Absolute Auto 6.4 x10*3/uL (2.0-8.3); Neutrophils Percent Auto 61.6 % (45-73); Platelet Count 251 X10*3/uL (160-400); Red Blood Count 4.58 X10*6/uL (4.20-5.50); Red Cell Distribution Width 12.3 % (11.0-16.0); White Blood Count 10.5 X10*3/uL (4.8-10.8)
[2023-04-09 08:05] LABS: Bacteria Urine 4+ (None Seen); Hyaline Casts Urine 0-2 /LPF (0-2); RBC Urine 0-2 /HPF (0-2); UACC Culture Trigger YES
[2023-04-09 08:34] LABS: Alanine Aminotransferase 16 U/L (0-31); Albumin Level 4.2 g/dL (3.5-5.0); Alkaline Phosphatase 76 U/L (39-117); Anion Gap 13 (12-20); Aspartate Amino Transferase 17 U/L (5-31); Bilirubin Total 0.4 mg/dL (0.0-1.0); Blood Urea Nitrogen 17 mg/dL (9-16); Calcium 9.2 mg/dL (8.4-10.2); Carbon Dioxide 23 mmol/L (22-29); Chloride 106 mmol/L (96-108); Cholesterol 150 mg/dL (<200); Estimated Glomerular Filt Rate > 60; Glucose Fasting 138 mg/dL (60-99); HDL Cholesterol 42 mg/dL (>40); LDL Cholesterol Calculated 77 mg/dL (<100); Sodium 138 mmol/L (135-145); Total Protein 7.5 g/dL (6.5-8.0); Triglycerides 157 mg/dL (<150)
[2023-04-09 08:44] LABS: Creatinine Urine 153.64 mg/dL; Microalbum/Creatinine Ratio Ur 8.4 ug/mg cr (<30)
[2023-04-09 08:51] LABS: Free T4 (Free Thyroxine) 1.07 ng/dL (0.71-1.85); Thyroid Stimulating Hormone 2.34 uIU/mL (0.32-4.0); Vitamin D 25-OH Total 41.2 ng/mL (>30)
== END 2023-04-09 06:04 | disposition home or self-care (01) ==
LOC: HO.LAB 06:03
PROVIDERS: PCP Internal Medicine; Visit Provider Internal Medicine
DX: E78.00 Pure hypercholesterolemia, unspecified (principal); E03.9 Hypothyroidism, unspecified; E11.9 Type 2 diabetes mellitus without complications; I10 Essential (primary) hypertension; E55.9 Vitamin D deficiency, unspecified; R30.0 Dysuria
CPT/HCPCS: 36415; 80053; 80061; 81001; 82043; 82306; 82570; 83036; 84439; 84443; 85025; 87086; 87088; 87186

== ENCOUNTER 2023-06-10 16:15 | Outpatient (AMB) | payer OTHER, SELFPAY ==
--- NOTE | 2023-06-10 16:19 | MHC.PC.OV ---
Vital Signs 06/10/23 16:20 Height 5 ft 1 in Weight 141 lb BMI 26.6 BP 136/66 Blood Pressure Location Lt brachial Position Sitting Pulse 65 Pulse Source Pulse Oximeter Pulse Oximetry (%) 99 Oxygen Delivery Method Room Air Intake Visit Reasons: Annual exam Intake Note: Patient is here today for a physical. 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 Tool Operator: Not Required per policy Accompanied by: Self / Same As Patient Allergies Sulfa (Sulfonamide Antibiotics) (SULFA (SULFONAMIDE ANTIBIOTICS)) Allergy (Unknown, Verified 10/21/24 13:15) HIVES, THROAT SWELLING Medication List - Last Reconciled 10/23/24 by Rambo Melchor MD apixaban (Eliquis) 2.5 mg PO BID aspirin 81 mg PO DAILY 90 days atorvastatin (Lipitor) 40 mg PO DAILY 90 days blood sugar diagnostic (FreeStyle Lite Strips) As directed once a day fluticasone propionate 50 mcg/actuation 2 sprays intranasal DAILY PRN 90 days lancets (FreeStyle Lancets) As directed once a day levothyroxine 25 mcg PO DAILY@0600 90 days Tobacco use date assessed: 06/10/23 Fall risk assessment: No Falls in past year Last assessed Fall Risk: 06/10/23 Dental Screening Dental Screen Date: 06/10/23 Did you have a dental visit in the last 12 months?: Yes Did you have a dental problem in the last 6 months where you did not have access to dental care?: No Was dental information given to patient?: Patient has dentist HPI Annual exam HPI Details Patient comes in today for her annual physical examination States that she feels okay She denies any headaches or dizziness Denies any chest pains, no shortness of breath No nausea/vomiting, no abdominal pain No change in bowel habits noted She denies any acute urinary symptoms States that neck pains have been mostly manageable Needs a couple of her Rx refilled She had her follow-up labs done a couple of months ago - to discuss her results She is currently due for her annual mammogram; she is otherwise up-to-date with all of her other cancer screenings [facility] Medical History (Updated 10/23/24 @ 04:05 by Rambo Melchor MD) Ovarian cancer Constipation Thickened endometrium Uterine fibroid Pelvic fullness in female Subclinical hypothyroidism Overweight (BMI 25.0-29.9) Vitamin D deficiency Cervical disc herniation Allergic rhinitis Diabetes mellitus Pure hypercholesterolemia Surgical History (Updated 10/21/24 @ 13:04 by LISSET Cali) History of hysterectomy for cancer History of colonoscopy (~12/2014) History of cervical spinal surgery Family History Father Stroke Mother Diabetes Hypertension Daughter Cervical cancer Social History Household Members: Spouse Housing: House Are you a primary life care planner to a significant other at home: No Do you presently have visiting nurse or other home services: No Alcohol intake: current Alcohol intake frequency: holidays/special occasions only Patient Tobacco Use Status: Former Tobacco user Tobacco use type: Cigarette Years Smoked: 2 e-Cigarette/Vaping Use: Never Used Second Hand Smoke Exposure: Yes service: No Current occupational status: unemployed Sexual orientation: Straight/Heterosexual Gender identity: Female Cognitive needs: No Hearing needs: No Vision needs: Yes Questionnaire PHQ-9 Over the last 2 weeks, how often have you been bothered by any of the following problems? 1. Little interest or pleasure in doing things: not at all 2. Feeling down, depressed, or hopeless: not at all 3. Trouble falling or staying asleep, or sleeping too much: not at all 4. Feeling tired or having little energy: not at all 5. Poor appetite or overeating: not at all 6. Feeling bad about yourself - or that you are a failure or have let yourself or your family down: not at all 7. Trouble concentrating on things, such as reading the newspaper or watching television: not at all 8. Moving or speaking so slowly that other people could have noticed. Or the opposite - being so fidgety or restless that you have been moving around a lot more than usual: not at all 9. Thoughts that you would be better off or of hurting yourself in some way: not at all Total score: 0 Depression Screening Interpretation: Negative Depression Screening Done: Yes 46347 - PHQ-9 Billing: Yes Source: Developed by Drs. Rick Lima, Crissy Luis, Farzad Matute and colleagues, with an educational andrew from [employer]. Thrive Questionnaire Date Thrive assessed: 06/10/23 I am a: Patient What is your living situation today?: I have a steady place to live Within the past 12 months, did the food you bought not last and you didn't have the money to get more?: Never true Within the past 12 months, did you worry whether your food would run out before you got money to buy more?: Never true Do you have trouble paying for medicines?: No Do you have trouble getting transportation to medical appointments?: No Do you have trouble paying your heating and electricity bill?: No Do you have trouble taking care of your child, family member or friend?: No Do you have trouble with day-to-day activities such as bathing, preparing meals, shopping, managing finances, etc.?: No Are you currently unemployed and looking for a job?: No Are you interested in more education?: No Currently or been in a relationship where the following occur: no concerns reported THRIVE Score: 0 AUDIT C Alcohol Use Questionnaire (AUDIT-C) 1. How often do you have a drink containing alcohol?: Monthly or less 2. How many drinks containing alcohol do you have on a typical day when you are drinking?: 1 or 2 Total Score: 1 Score Reviewed/Action Taken: Yes NACHO-7 AMB Questionnaire NACHO-7 Date NACHO - 7 assessed: 06/10/23 Feeling nervous, anxious, or on edge: 0 = Not at all Not being able to stop or control worryin = Not at all Worrying too much about different things: 0 = Not at all Trouble relaxin = Not at all Being so restless that it is hard to sit still: 0 = Not at all Becoming easily annoyed or irritable: 0 = Not at all Feeling afraid as if something awful might happen: 0 = Not at all Total NACHO-7 score (0-4 normal; 5-9 mild; 10-14 moderate; 15-21 severe): 0 Source: Developed by Drs. Rick Lima, Crissy Luis, Farzad Matute and colleagues, with an educational andrew from [employer]. Review of Systems Const Denies chills, Denies fatigue, Denies fever(s), Denies headache(s) and Denies malaise Eyes Denies blurry vision, Denies change in vision, Denies irritation and Denies itchy eyes ENT Denies dysphagia, Denies dizziness, Denies otalgia, Denies headache(s), Denies nasal congestion, Denies neck pain, Denies odynophagia, Denies sinus pain and Denies sore throat Card Denies chest pain, Denies rapid heart rate, Denies irregular heart rhythm, Denies palpitations and Denies dyspnea Resp Denies chest congestion, Denies cough, Denies dyspnea and Denies wheezing GI Denies abdominal pain, Denies bloating, Denies constipation, Denies dysphagia, Denies heartburn, Denies diarrhea, Denies nausea, Denies odynophagia and Denies vomiting Denies hematuria, Denies urinary frequency, Denies dysuria, Denies urinary incontinence and Denies urinary urgency Musc Denies back pain, Denies arthralgias, Denies joint swelling, Denies muscle weakness and Denies neck pain Skin/Breast Denies breast pain, Denies breast mass, Denies change in pigmentation, Denies lesions, Denies rash and Denies unusual bruising Neuro Denies dizziness, Denies headache(s) and Denies paresthesias Psych Denies anxiety and Denies depression Endo Denies fatigue and Denies palpitations Wm/Lymph Denies easy bruising Aller/Immun Denies itchy eyes and Denies wheezing Physical exam (Primary Care) Vital Signs: Last Vital Signs Pulse 65 06/10/23 16:20 BP 136/66 06/10/23 16:20 Pulse Ox 99 06/10/23 16:20 Oxygen Delivery Method Room Air 06/10/23 16:20 BMI result Body Mass Index 26.6 Tobacco/Smoking Status: Tobacco use Status Tobacco use date assessed 06/10/23 06/10/23 16:24 Patient Tobacco Use Status Former Tobacco user 06/10/23 16:24 e-Cigarette/Vaping Use Never Used 06/10/23 16:24 PHQ-9: PHQ-9 Score PHQ-9: Total score 0 06/10/23 16:32 Depression Screening Interpretation: Negative Thrive Assessment: Date of Thrive Assessment Date Thrive assessed 06/10/23 06/10/23 16:24 Currently or been in a relationship where the following occur: no concerns reported Const General: no acute distress, alert and awake Orientation/consciousness: patient oriented x3 HENMT Head: Yes normocephalic and Yes atraumatic Ears: external ears normal, TM's normal bilaterally and EAC's normal General nose exam: No nasal discharge present Face and sinus: Yes normal facial exam and Yes sinuses nontender Teeth and gingiva: dentition normal Throat: Yes posterior oropharynx normal and Yes tonsils normal (no TP congestion) Eyes Eyelids: Yes eyelids normal Conjunctivae: conjunctivae normal Pupils: Equal, round and reactive pupils present EOM: EOMs intact bilaterally Neck Neck: Yes no lymphadenopathy and Yes supple Thyroid: Thyroid normal Resp Auscultation: clear to auscultation bilaterally, no rales and no wheezes Cardio Rate: regular rate Rhythm: regular rhythm Heart sounds: no murmurs GI Palpation (GI): Soft to palpation, nontender and No hepatosplenomegaly present Auscultation: normal bowel sounds General: Yes no CVA tenderness Back/Spine/Pelvis Back: no CVA tenderness Thoracic/Lumbar Spine: thoracic and lumbar spine normal to inspection Skin Lesions: no lesions Rashes: no rashes Neuro General: patient oriented x3, moves all extremities, no focal motor deficits and CN's II-XI intact bilaterally Cranial nerves: Yes Equal, round and reactive pupils present Cognition (Neuro): normal cognition Gait exam (Neuro): Normal gait present Extrem General: Yes no clubbing, cyanosis or edema Results Reviewed Results Reviewed: Laboratory Tests 04/09/23 04/09/23 04/09/23 06:20 06:20 06:24 WBC 10.5 Hgb 14.0 Hct 42.1 Plt Count 251 Sodium 138 Potassium 4.0 Creatinine 0.86 Estimated GFR > 60 Fasting Glucose 138 H Hemoglobin A1c % 6.7 H Calcium 9.2 AST 17 ALT Triglycerides Cholesterol 150 LDL Cholesterol, Calc 77 HDL Cholesterol 42 25-OH Vitamin D Total 41.2 TSH 2.34 Free T4 1.07 Ur Specific [place] 1.020 Urine Protein Negative Urine Glucose (UA) Negative Urine Blood Small (1+) H Urine Nitrite Negative Ur Leukocyte Esterase Small (1+) H Microalb/Creat Ratio 8.4 04/09/23 04/09/23 06:24 06:24 WBC Hgb Hct Plt Count Sodium Potassium Creatinine Estimated GFR Fasting Glucose Hemoglobin A1c % Calcium AST ALT 16 Triglycerides 157 H Cholesterol LDL Cholesterol, Calc HDL Cholesterol 25-OH Vitamin D Total TSH Free T4 Ur Specific [place] Urine Protein Urine Glucose (UA) Urine Blood Urine Nitrite Ur Leukocyte Esterase Microalb/Creat Ratio Coding Level of Care Code Est Pt Prev Care >65y(97651) Diagnoses Pure hypercholesterolemia E78.00 Type 2 diabetes mellitus without complication, without long-term current use of insulin E11.9 Diabetes mellitus complication status: without complication 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
[2023-06-10 16:20] VITALS: BP 136/66; PULSE 65; O2SAT 99; BMI 26.6
== END 2023-06-10 16:41 | disposition home or self-care (01) ==
PROVIDERS: PCP Internal Medicine; Visit Provider Internal Medicine
DX: E78.00 Pure hypercholesterolemia, unspecified (principal); E11.9 Type 2 diabetes mellitus without complications; E03.8 Other specified hypothyroidism; J30.9 Allergic rhinitis, unspecified; M50.20 Other cervical disc displacement, unspecified cervical region; E55.9 Vitamin D deficiency, unspecified; E66.3 Overweight; Z12.31 Encounter for screening mammogram for malignant neoplasm of breast
CPT/HCPCS: 99499

== ENCOUNTER 2023-06-30 15:28 | Outpatient (REF) | payer OTHER, SELFPAY | END 2023-06-30 15:29 | disposition home or self-care (01) | LOC: HO.MAMMO 15:28 | PROVIDERS: PCP Internal Medicine; Visit Provider Internal Medicine | DX: Z12.31 Encounter for screening mammogram for malignant neoplasm of breast (principal) | CPT/HCPCS: 77063; 77067 ==

== ENCOUNTER → 2023-06-30 15:45 | Outpatient (BNV) | payer OTHER, SELFPAY | PROVIDERS: PCP Internal Medicine; Visit Provider Radiology Diagnostic Radiology | DX: Z12.31 Encounter for screening mammogram for malignant neoplasm of breast (principal) | CPT/HCPCS: 77063; 77067 ==

== ENCOUNTER 2023-08-11 14:27 | Outpatient (AMB) | payer OTHER, SELFPAY ==
--- NOTE | 2023-08-11 14:29 | A.OFFVIS_ITS ---
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 She is doing well with concerns: pain on lower right side, dull ache intermittently for two weeks, improved from last week, she denies any urinary symptoms, she has occasional constipation, no odor or disharge. No VB. History of fibroids, has a 6 month follow up ultrasound in several weeks. Attempting to eat a healthy diet with calcium and vitamin D and stays active with exercise. Currently occasionally sexually active, not painful. Denies any vaginal dryness or irritation. STI testing offered; she declines. Last pap smear; 2022. Last mammogram; 2023. Colonoscopy is UTD. Denies any family history of breast, ovarian or colon cancer. [facility] Medical History Uterine fibroid Pelvic fullness in female Subclinical hypothyroidism Overweight (BMI 25.0-29.9) Vitamin D deficiency Cervical disc herniation Allergic rhinitis Diabetes mellitus Pure hypercholesterolemia Surgical History History of colonoscopy (~12/2014) History of cervical spinal surgery Family History Father Stroke Mother Diabetes Hypertension Daughter Cervical cancer Social History Housing: House Alcohol intake: current Alcohol intake frequency: holidays/special occasions only Patient Tobacco Use Status: Former Tobacco user e-Cigarette/Vaping Use: Never Used Second Hand Smoke Exposure: Yes service: No Current occupational status: unemployed Sexual orientation: Straight/Heterosexual Gender identity: Female Cognitive needs: No Hearing needs: No Vision needs: Yes Female Reproductive History Menstrual Age of Menarche: 12 Duration of menses: 3-5 days control method: none Total pregnancies: 3 Full term: 3 Date of last pap smear: 08/07/22 (neg.previous pap,2016,wnl) History of abnormal pap smear: No Date of Mammogram: 06/30/23 (negative) History of abnormal mammogram: No Review of Systems Const All systems reviewed & are unremarkable except as noted in HPI and below Reports as per HPI Eyes Reports no additional complaints ENT Reports no additional complaints Card Reports no additional complaints Resp Reports no additional complaints GI Reports as per HPI and Reports no additional complaints Reports as per HPI Musc Reports no additional complaints Skin/Breast Reports as per HPI Neuro Reports no additional complaints Psych Reports no additional complaints Endo Reports no additional complaints Wm/Lymph Reports no additional complaints Aller/Immun Reports no additional complaints Physical Exam Vital Signs: Last Vital Signs BP 118/70 08/11/23 14:41 BMI result Body Mass Index 27.4 Const General: cooperative, healthy appearing, no acute distress, well developed and alert Orientation/consciousness: patient oriented x3 HEENT Head: Yes normal to inspection Eyes General: appearance normal, both eyes and all related structures Neck Neck: Yes normal visual inspection Thyroid: Thyroid normal Chest Chest palpation & inspection: normal inspection of the chest and other (no puckering, dimpling, peau de orange, retraction, discharge, masses) Breast/axilla inspection: normal inspection of the breasts Breast/axilla palpation: normal palpation of the breasts Resp Effort & Inspection: normal respiratory effort GI Inspection: Yes normal to inspection Palpation (GI): Soft to palpation Rectal Exam - Female: deferred General: Yes bladder normal to palpation External Female Exam: normal external appearance and normal appearance of the urethra Speculum Exam - Vagina: normal appearance of the vagina, normal palpation and normal vaginal discharge Speculum Exam - Cervix: normal appearance of the cervix and normal palpation Bimanual exam- vagina & uterus: normal bimanual exam, normal palpation, uterine size normal, bladder normal to palpation, normal palpation, non-tender and enlarged Bimanual Exam- Adnexa, other: no masses Skin General skin exam: no rashes or lesions noted Rashes: no rashes Neuro General: patient oriented x3 Cognition (Neuro): normal cognition Extrem General: Yes normal to inspection Psych Attitude: cooperative Thought process: Normal thought process present Assessment & Plan Assessment & Plan (1) Encounter for well woman exam with routine gynecological exam: Code(s): Z01.419 - Encounter for gynecological examination (general) (routine) without abnormal findings Category: Medical (2) Fibroid: Code(s): D21.9 - Benign neoplasm of connective and other soft tissue, unspecified Category: Medical Plan Discussed: Current recommendations for pap smears per ASCCP guidelines. Breast awareness, periodic self breast exams and yearly mammogram. Maintain a healthy lifestyle, well balanced diet including Calcium 1,200 mg and Vitamin D 600 IU daily, and routine exercise. If pain worsens to go to the emergency room for immediate evaluation, can use [id number] ibuprofen or Tylenol as needed if no contraindications or allergies as directed through manufacture's instructions., may also use a heating pad. Return to the office follow-up after the ultrasound is complete. Contact the office with any postmenopausal bleeding. Patient verbalizes understanding and agrees to the plan of care. She was given opportunity to ask questions and all questions were answered to the best of my ability. RTO in 1 year for annual profile grinder exam. This note is constructed using voice recognition software. While every effort has been made to ensure accuracy, senior oracle adf developer errors may have been included. Orders: Orders US pelvic and transvaginal Today D21.9 - Benign neoplasm of connective and other soft tissue, unspecified, R10.2 - Pelvic and perineal pain CT NG by PCR Today Z01.419 - Encounter for gynecological examination (general) (routine) without abnormal findings Bacterial Vaginosis Panel Today Z01.419 - Encounter for gynecological examination (general) (routine) without abnormal findings Urine Culture Today R10.2 - Pelvic and perineal pain Coding Level of Care Code Est Pt Prev Care >65y(13575) Diagnoses Encounter for well woman exam with routine gynecological exam Z01.419 Fibroid D21.9
[2023-08-11 14:41] VITALS: BP 118/70; BMI 27.4
== END 2023-08-11 16:10 | disposition home or self-care (01) ==
LOC: HO.HWS 14:27
PROVIDERS: PCP Internal Medicine; Visit Provider Advanced Practice Midwife
DX: Z01.419 Encounter for gynecological examination (general) (routine) without abnormal findings (principal); D21.9 Benign neoplasm of connective and other soft tissue, unspecified
CPT/HCPCS: 99397

== ENCOUNTER 2023-08-11 14:27 | Outpatient (REF) | payer OTHER, SELFPAY ==
[2023-08-12 04:34] LABS: CT PCR NOT DETECTED (Not Detect.); NG PCR NOT DETECTED (Not Detect.)
[2023-08-12 11:20] LABS: Bacterial Vaginosis PCR NEGATIVE (Negative); Candida Group PCR NOT DETECTED (Not Detect); Candida glab krusei PCR NOT DETECTED (Not Detect); Trichomonas vaginalis PCR NOT DETECTED (Not Detect)
== END 2023-08-11 14:28 | disposition home or self-care (01) ==
LOC: HO.LAB 14:27
PROVIDERS: PCP Internal Medicine; Visit Provider Advanced Practice Midwife
DX: Z01.419 Encounter for gynecological examination (general) (routine) without abnormal findings (principal); D21.9 Benign neoplasm of connective and other soft tissue, unspecified; R10.2 Pelvic and perineal pain
CPT/HCPCS: 0352U; 0353U; 87086; 87088; 87186

== ENCOUNTER 2023-08-14 12:49 | Outpatient (REF) | payer OTHER, SELFPAY ==
--- NOTE | ~2023-08-14 | US_ITS ---
EXAMINATION: US PELVIS CLINICAL INFORMATION: Pelvic pain. Leiomyoma. COMPARISON: Pelvic ultrasound February 17, 2023 TECHNIQUE: Ultrasound of the pelvis is performed using both transabdominal and transvaginal transducers along with Doppler. Transvaginal imaging is performed due to inadequate visualization transabdominally. FINDINGS: Uterus: The uterus measures 6.3 x 3.6 x 4.6 cm. Uterus is anteflexed and anteverted. Uterine fibroids: 1. Right-sided anterior body. 1.5 x 1.2 x 1.4 cm. Previous measurement 1.6 x 1.4 x 1.7 cm. 2. Right-sided posterior body. 1.2 x 1.1 x 1.1 cm. Previous measurement 1.7 x 1.6 x 1.3 cm 3. Right-sided anterior body. 1.6 x 1.1 x 1.4 cm. Previous measurement 1.4 x 1.2 x 1.4 cm. The double wall endometrial thickness is 7 mm. Adnexa: Neither ovary is visualized.. No adnexal abnormality. Cul-de-sac: No fluid in the cul-de-sac. US/US pelvic and transvaginal IMPRESSION: 1. Multiple small uterine fibroids. No change in the uterine fibroid since prior study 02/17/2023. No acute abnormality. 2. Neither ovary is visualized. No adnexal abnormality.
== END 2023-08-14 12:50 | disposition home or self-care (01) ==
LOC: HO.US 12:49
PROVIDERS: PCP Internal Medicine; Visit Provider Advanced Practice Midwife
DX: D25.9 Leiomyoma of uterus, unspecified (principal); R10.2 Pelvic and perineal pain
CPT/HCPCS: 76830; 76856

== ENCOUNTER 2023-09-08 11:08 | Outpatient (AMB) | payer OTHER, SELFPAY ==
[2023-09-08 11:10] VITALS: BP 118/84; BMI 27.4
--- NOTE | 2023-09-08 11:10 | MHC.OFFVIS ---
Vital Signs 09/08/23 11:10 Height 5 ft 1 in Weight 145 lb BMI 27.4 BP 118/84 Blood Pressure Location Rt brachial Position Sitting Intake Visit Reasons: Ultra sound follow up Assistant Printer Floor Covering: Assistant Printer Floor Covering Present Allergies Sulfa (Sulfonamide Antibiotics) [SULFA (SULFONAMIDE ANTIBIOTICS)] Allergy (Unknown, Verified 09/08/23 11:12) HIVES, THROAT SWELLING Is last menstrual period known: Yes HPI Comments Details: Patient is here today with her Shayne, to discuss ultrasound follow up, history of fibroids. She is no longer having pelvic pain, since she started regular exercising and gardening. She does not report any postmenopausal bleeding. She admits to having upper right-sided GI pain close to the periumbilical region, not seen by her primary care for this. [facility] Medical History (Updated 09/08/23 @ 11:49 by Bella Neal CNM) Thickened endometrium Uterine fibroid Pelvic fullness in female Subclinical hypothyroidism Overweight (BMI 25.0-29.9) Vitamin D deficiency Cervical disc herniation Allergic rhinitis Diabetes mellitus Pure hypercholesterolemia Surgical History History of colonoscopy (~12/2014) History of cervical spinal surgery Family History Father Stroke Mother Diabetes Hypertension Daughter Cervical cancer Social History Housing: House Alcohol intake: current Alcohol intake frequency: holidays/special occasions only Patient Tobacco Use Status: Former Tobacco user e-Cigarette/Vaping Use: Never Used Second Hand Smoke Exposure: Yes service: No Current occupational status: unemployed Sexual orientation: Straight/Heterosexual Gender identity: Female Cognitive needs: No Hearing needs: No Vision needs: Yes Female Reproductive History Menstrual Age of Menarche: 12 Review of Systems Const All systems reviewed & are unremarkable except as noted in HPI and below Endo Reports no additional complaints Physical Exam Vital Signs: Last Vital Signs BP 118/84 09/08/23 11:10 BMI result Body Mass Index 27.4 Const General: cooperative, healthy appearing and no acute distress Psych Appearance: well kempt Attitude: cooperative Thought process: Normal thought process present Results Reviewed Results Reviewed: [address] [address] Ultrasound Report Signed Patient: Velia Ye MR#: [id number] : 1955 Acct:[id number] Age/Sex: 68 / F ADM Date: 08/14/23 Loc: HO.US Attending Dr: Bella Neal CNM Ordering Physician: Bella Neal CNM Date of Service: 08/14/23 Procedure(s): US pelvic and transvaginal Accession Number(s): [id number] cc: Rambo Melchor MD; Bella Neal CNM~ EXAMINATION: US PELVIS CLINICAL INFORMATION: Pelvic pain. Leiomyoma. COMPARISON: Pelvic ultrasound February 17, 2023 TECHNIQUE: Ultrasound of the pelvis is performed using both transabdominal and transvaginal transducers along with Doppler. Transvaginal imaging is performed due to inadequate visualization transabdominally. FINDINGS: Uterus: The uterus measures 6.3 x 3.6 x 4.6 cm. Uterus is anteflexed and anteverted. Uterine fibroids: 1. Right-sided anterior body. 1.5 x 1.2 x 1.4 cm. Previous measurement 1.6 x 1.4 x 1.7 cm. 2. Right-sided posterior body. 1.2 x 1.1 x 1.1 cm. Previous measurement 1.7 x 1.6 x 1.3 cm 3. Right-sided anterior body. 1.6 x 1.1 x 1.4 cm. Previous measurement 1.4 x 1.2 x 1.4 cm. The double wall endometrial thickness is 7 mm. Adnexa: Neither ovary is visualized.. No adnexal abnormality. Cul-de-sac: No fluid in the cul-de-sac. US/US pelvic and transvaginal IMPRESSION: 1. Multiple small uterine fibroids. No change in the uterine fibroid since prior study 02/17/2023. No acute abnormality. 2. Neither ovary is visualized. No adnexal abnormality. Dictated By: Edward Leonardo MD Signed By: <Electronically signed by Edward Leonardo MD in OV> 08/14/23 1531 DD/ 1313 TD/TT: Pipe And Boiler Covers Supervisor: TAY Assessment & Plan Assessment & Plan (1) Fibroid: Code(s): D21.9 - Benign neoplasm of connective and other soft tissue, unspecified Category: Medical (2) Encounter to discuss test results: Code(s): Z71.2 - Person consulting for explanation of examination or test findings (3) Thickened endometrium: Comment: 7 mm endometrial biopsy... Code(s): R93.89 - Abnormal findings on diagnostic imaging of other specified body structures Category: Medical Plan Discussed: Ultrasound findings-Counseled re: Leiomyoma: common pelvic neoplasm. Differential diagnosis-may include leiomyosarcoma which is a rare uterine sarcoma 3-7/100,000, difficult to distinguish from fibroids on ultrasound from uterine sarcoma's. Unlikely any single test will have a highly positive predictive value. Hysterectomy is not recommended for sole purpose of excluding malignant neoplasm. Report any PMB. Pelvic pressure, bloating, or pain. Yearly follow up for stability. Referral to MD if indicated for level of care. Thickened endometrial lining advised endometrial biopsy to rule out any hyperplasia, atypia, pre cancer and cancer. All of her questions and concerns were addressed to the best of my ability and shared decision making. She is agreeable to the plan of care. Discussed pre procedure planning to have something to eat drink, intake 2 ibuprofen 1 hour before her appointment time. She will schedule endometrial biopsy appointment before leaving. Advised her to check in soon with her primary care about her upper GI discomfort she is experiencing. All of her questions and concerns were addressed to the best of my ability and shared decision making. She is agreeable to the plan of care. This note is constructed using voice recognition software. While every effort has been made to ensure accuracy, appraiser timber errors may have been included. Coding Level of Care Code Est Pt Level 3 (04544) Diagnoses Fibroid D21.9 Encounter to discuss test results Z71.2 Thickened endometrium R93.89
== END 2023-09-08 11:38 | disposition home or self-care (01) ==
PROVIDERS: PCP Internal Medicine; Visit Provider Advanced Practice Midwife
DX: D21.9 Benign neoplasm of connective and other soft tissue, unspecified (principal); Z71.2 Person consulting for explanation of examination or test findings; R93.89 Abnormal findings on diagnostic imaging of other specified body structures
CPT/HCPCS: 99213

== ENCOUNTER → 2023-09-08 11:08 | Outpatient (BNVA) | payer OTHER, SELFPAY | PROVIDERS: PCP Internal Medicine; Visit Provider Advanced Practice Midwife | DX: D21.9 Benign neoplasm of connective and other soft tissue, unspecified (principal); R93.89 Abnormal findings on diagnostic imaging of other specified body structures; Z71.2 Person consulting for explanation of examination or test findings | CPT/HCPCS: 99212 ==

== ENCOUNTER 2023-09-30 10:27 | Outpatient (AMB) | payer OTHER, SELFPAY ==
--- NOTE | 2023-09-30 11:06 | A.OFFPC_ITS ---
Vital Signs 09/30/23 11:08 Height 5 ft 1 in Weight 140 lb 8 oz BMI 26.5 BP 100/62 Blood Pressure Location Lt brachial Position Sitting Pulse 61 Pulse Source Pulse Oximeter Pulse Oximetry (%) 97 Oxygen Delivery Method Room Air Intake Visit Reasons: AbdominalPain Intake Note: Patient is here to follow up on Abdominal Pain and bloating ongoing for a month. Altitude Chamber Technician Required: No Anesthesiologist Physician: Present Accompanied by: Spouse Allergies Sulfa (Sulfonamide Antibiotics) [SULFA (SULFONAMIDE ANTIBIOTICS)] Allergy (Unknown, Verified 09/30/23 11:50) HIVES, THROAT SWELLING Medication List - Last Reconciled 09/30/23 by Jose E Yoo MD aspirin 81 mg PO DAILY 90 days atorvastatin (Lipitor) 40 mg PO DAILY 90 days blood sugar diagnostic (FreeStyle Lite Strips) As directed once a day cetirizine 10 mg PO DAILY PRN 90 days fluticasone propionate 50 mcg/actuation 2 sprays intranasal DAILY PRN 90 days lancets (FreeStyle Lancets) As directed once a day levothyroxine 25 mcg PO DAILY 90 days metformin ER 500 mg PO BID 90 days Tobacco use date assessed: 09/30/23 Fall risk assessment: No Falls in past year Last assessed Fall Risk: 09/30/23 Dental Screening Dental Screen Date: 06/10/23 HPI AbdominalPain HPI Details 68-year-old female presents to the [facility] for a sick visit. Her provider is not available and I am filling in. Patient complains of abdominal discomfort for the past week. She does not have regular bowel movements. Minimal nausea. No vomiting. [facility] Medical History Thickened endometrium Uterine fibroid Pelvic fullness in female Subclinical hypothyroidism Overweight (BMI 25.0-29.9) Vitamin D deficiency Cervical disc herniation Allergic rhinitis Diabetes mellitus Pure hypercholesterolemia Surgical History History of colonoscopy (~12/2014) History of cervical spinal surgery Family History Father Stroke Mother Diabetes Hypertension Daughter Cervical cancer Social History Housing: House Alcohol intake: current Alcohol intake frequency: holidays/special occasions only Patient Tobacco Use Status: Former Tobacco user e-Cigarette/Vaping Use: Never Used Second Hand Smoke Exposure: Yes service: No Current occupational status: unemployed Sexual orientation: Straight/Heterosexual Gender identity: Female Cognitive needs: No Hearing needs: No Vision needs: Yes Female Reproductive History Menstrual Age of Menarche: 12 Questionnaire Thrive Questionnaire Date Thrive assessed: 06/10/23 NACHO-7 AMB Questionnaire NACHO-7 Date NACHO - 7 assessed: 06/10/23 Source: Developed by Drs. Rick Lima, Crissy Luis, Farzad Matute and colleagues, with an educational andrew from [employer]. Physical exam (Primary Care) Vital Signs: Last Vital Signs Pulse 61 09/30/23 11:08 BP 100/62 09/30/23 11:08 Pulse Ox 97 09/30/23 11:08 Oxygen Delivery Method Room Air 09/30/23 11:08 BMI result Body Mass Index 26.5 Tobacco/Smoking Status: Tobacco use Status Tobacco use date assessed 09/30/23 09/30/23 11:18 Patient Tobacco Use Status Former Tobacco user 09/30/23 11:18 e-Cigarette/Vaping Use Never Used 09/30/23 11:18 Thrive Assessment: Date of Thrive Assessment Date Thrive assessed 06/10/23 09/30/23 11:18 Const General: cooperative and healthy appearing Nutritional Appearance: well nourished Orientation/consciousness: patient oriented x3 Limitations: no limitations HENMT Head: Yes normal to inspection Eyes General: appearance normal, both eyes and all related structures Neck Neck: Yes normal visual inspection Chest Chest palpation & inspection: normal palpation of entire chest wall Resp Effort & Inspection: normal respiratory effort Neuro General: patient oriented x3 Assessment and Plan Assessment & Plan (1) Abdominal pain: Code(s): R10.9 - Unspecified abdominal pain Plan: Constipation could be a cause for this symptom. X-ray of the abdomen has been requested. Milk of magnesia and Fleet enema has been suggested. If symptoms do not improve to follow-up here. Orders: Orders XR abdomen 3V Today R10.9 - Unspecified abdominal pain Coding Level of Care Code Est Pt Level 4 (43214) Diagnoses Abdominal pain R10.9
[2023-09-30 11:08] VITALS: BP 100/62; PULSE 61; O2SAT 97; BMI 26.5
== END 2023-09-30 12:57 | disposition home or self-care (01) ==
PROVIDERS: PCP Internal Medicine; Visit Provider Internal Medicine
DX: R10.9 Unspecified abdominal pain (principal)
CPT/HCPCS: 99214

== ENCOUNTER 2023-09-30 11:56 | Outpatient (REF) | payer OTHER, SELFPAY ==
--- NOTE | ~2023-09-30 | XR_ITS ---
EXAMINATION: XR ABDOMEN COMPLETE CLINICAL INDICATION: Abdominal pain COMPARISON: None available. TECHNIQUE: 3 views of the abdomen. FINDINGS: The bowel gas pattern is normal with no evidence of ileus or obstruction. No unusual soft tissue calcifications are noted. The bones are unremarkable. XR/XR abdomen 3V IMPRESSION: Unremarkable examination.
== END 2023-09-30 11:57 | disposition home or self-care (01) ==
LOC: HO.XRAY 11:56
PROVIDERS: PCP Internal Medicine; Visit Provider Internal Medicine
DX: R10.9 Unspecified abdominal pain (principal)
CPT/HCPCS: 74021

== ENCOUNTER 2023-11-10 09:30 | Outpatient (REF) | payer OTHER, SELFPAY ==
[2023-11-10 16:36] LABS: Bacterial Vaginosis PCR NEGATIVE (Negative); Candida Group PCR NOT DETECTED (Not Detect); Candida glab krusei PCR NOT DETECTED (Not Detect); Trichomonas vaginalis PCR NOT DETECTED (Not Detect)
== END 2023-11-10 09:31 | disposition home or self-care (01) ==
LOC: HO.LAB 09:30
PROVIDERS: PCP Internal Medicine; Visit Provider Advanced Practice Midwife
DX: N89.8 Other specified noninflammatory disorders of vagina (principal); D21.9 Benign neoplasm of connective and other soft tissue, unspecified; R93.89 Abnormal findings on diagnostic imaging of other specified body structures
CPT/HCPCS: 0352U; 99212

== ENCOUNTER 2023-11-10 09:30 | Outpatient (AMB) | payer OTHER, SELFPAY ==
[2023-11-10 09:35] VITALS: BP 104/60; BMI 26.4
--- NOTE | 2023-11-10 09:35 | A.OFFVIS_ITS ---
Vital Signs 11/10/23 09:35 Height 5 ft 1 in Weight 140 lb BMI 26.4 BP 104/60 Intake Visit Reasons: EMB Client Technical Support Associate: Client Technical Support Associate Present (Karla) Allergies Sulfa (Sulfonamide Antibiotics) [SULFA (SULFONAMIDE ANTIBIOTICS)] Allergy (Unknown, Verified 11/10/23 09:35) HIVES, THROAT SWELLING HPI Comments Details: Patient is here today for an endometrial biopsy due to thickened endometrium on ultrasound. She does not report any vaginal bleeding. History of fibroids. Ad mits to frequent UTIs, completed antibiotics. [facility] Medical History Thickened endometrium Uterine fibroid Pelvic fullness in female Subclinical hypothyroidism Overweight (BMI 25.0-29.9) Vitamin D deficiency Cervical disc herniation Allergic rhinitis Diabetes mellitus Pure hypercholesterolemia Surgical History History of colonoscopy (~12/2014) History of cervical spinal surgery Family History Father Stroke Mother Diabetes Hypertension Daughter Cervical cancer Social History Housing: House Alcohol intake: current Alcohol intake frequency: holidays/special occasions only Patient Tobacco Use Status: Former Tobacco user e-Cigarette/Vaping Use: Never Used Second Hand Smoke Exposure: Yes service: No Current occupational status: unemployed Sexual orientation: Straight/Heterosexual Gender identity: Female Cognitive needs: No Hearing needs: No Vision needs: Yes Female Reproductive History Menstrual Age of Menarche: 12 Review of Systems Const All systems reviewed & are unremarkable except as noted in HPI and below Physical Exam Vital Signs: BMI result Body Mass Index 26.4 Const General: cooperative, healthy appearing and no acute distress Orientation/consciousness: patient oriented x3 GI Other: The patient is here today for an endometrial biopsy due to thickened endometrium in postmenopausal to rule out any pathology including atypical, hyperplasia or cancer cells of the uterus. She was counseled regarding anticipatory guidance for the procedure including the risks for pain, infection, bleeding, perforation, potential injury to the tissues may include the cervix, uterus, tubes, bladder and bowels. These injuries may include further treatment and evaluation including surgery, blood transfusions, antibiotics, hospitalizations and anesthesia. Permanent injury and scarring can occur. She was consented for the procedure, and the consent forms were signed. She is agreeable to have the procedure today. All questions were answered. Endometrial Biopsy Procedure: The patient was placed in the dorsal lithotomy position and a sterile speculum inserted. Using aseptic technique for the procedure. The cervix was cleansed with Betadine x 3 swabs. A single toothed tenaculum was placed on the cervix for stabilization and the cervix was found to be stenotic, a graduated dilator was utilized and was unsuccessful in dilating the cervical os, the procedure was discontinued. Minimal bleeding was observed from the tenaculum sites and the cervix. The patient tolerate the attempted procedure, and was in good condition when leaving the department. Endometrial Biopsy Post Procedure Care: Nothing in the vagina including: tampons, douching or intimacy until all the bleeding has subsided. There may be some post procedure bleeding for several days, this bleeding is usually light and may turn to a light brown or pink color. Mild cramps may occurs. Nothing in the vaginal including: tampons, douching, or intimacy until all the bleeding has subsided. You may take an over the counter mild analgesic such as Tylenol or Advil (if no allergies) per the manufactures recommendation on dosing, frequency, and follow the directions completely. Call the office if any: fever (over 100.4), flu like symptoms, abdominal pain (worse than cramping), foul smelling, infected appearing vaginal discharge, or heavy bleeding. BV panel obtained await results for plan of care. This note is constructed using voice recognition software. While every effort has been made to ensure accuracy, prospecting driller errors may have been included. Inspection: Yes normal to inspection Palpation (GI): Soft to palpation and Other GI palpation findings present (Nontender) Rectal Exam - Female: visual inspection normal General: Yes bladder normal to palpation External Female Exam: normal appearance of the urethra Speculum Exam - Vagina: normal appearance of the vagina, normal palpation, normal vaginal discharge (Heavier amount of white discharge thin consistency) and vagina atrophic Speculum Exam - Cervix: normal appearance of the cervix and normal palpation Bimanual exam- vagina & uterus: normal bimanual exam, normal palpation, uterine size normal, bladder normal to palpation, normal palpation, uterine shape normal and non-tender Bimanual Exam- Adnexa, other: normal adnexae Neuro General: patient oriented x3 Assessment & Plan Assessment & Plan (1) Fibroid: Code(s): D21.9 - Benign neoplasm of connective and other soft tissue, unspecified Category: Medical (2) Thickened endometrium: Code(s): R93.89 - Abnormal findings on diagnostic imaging of other specified body structures Plan Discussed: Unable to complete EMB procedure due to stenotic, atrophic cervical os. Recommended consult with Dr. Gutierrez to discuss further evaluation of endometrial lining. Discussed atrophic changes, increased vaginal discharge, frequency of UTIs and preventative measures. BV panel obtained. Counseled re: Leiomyoma: common pelvic neoplasm. Differential diagnosis-may include but not limited to- leiomyosarcoma which is a rare uterine sarcoma 3- 7/100,000, difficult to distinguish from fibroids on ultrasound from uterine sarcoma's. Unlikely any single test will have a highly positive predictive value. Hysterectomy is not recommended for sole purpose of excluding malignant neoplasm. Consult for surgical exploration, medical treatment, other treatments, verses expectant management, pros and cons, risks and benefits. Expectant management follow up in 12 months for stability. Orders to be placed. Patient can have follow up to discuss at her annual in 08/2024. Report any PMB. Pelvic pressure, bloating, or pain. Referral to MD if indicated for level of care if indicated. Orders: Orders Bacterial Vaginosis Panel Today D21.9 - Benign neoplasm of connective and other soft tissue, unspecified, N89.8 - Other specified noninflammatory disorders of vagina US pelvic and transvaginal 07/18/24 D21.9 - Benign neoplasm of connective and other soft tissue, unspecified Coding Level of Care Code Est Pt Level 3 (48319) Diagnoses Fibroid D21.9 Thickened endometrium R93.89 Comment EMB incomplete not able to sample
== END 2023-11-10 10:15 | disposition home or self-care (01) ==
LOC: HO.HWS 09:30
PROVIDERS: PCP Internal Medicine; Visit Provider Advanced Practice Midwife
DX: D21.9 Benign neoplasm of connective and other soft tissue, unspecified (principal); R93.89 Abnormal findings on diagnostic imaging of other specified body structures
CPT/HCPCS: 99213

== ENCOUNTER 2023-12-31 08:05 | Outpatient (AMB) | payer OTHER, SELFPAY ==
[2023-12-31 08:13] VITALS: BP 106/66; BMI 26.4
--- NOTE | 2023-12-31 08:13 | A.OFFVIS_ITS ---
Vital Signs 12/31/23 08:13 Height 5 ft Weight 135 lb BMI 26.4 BP 106/66 Intake Visit Reasons: Thickened Endo Consult Button Reclaimer Required: No Information Interpreted: non-clinical & clinical Multi Operation Forming Machine Setter: Multi Operation Forming Machine Setter Present Accompanied by: Spouse Allergies Sulfa (Sulfonamide Antibiotics) [SULFA (SULFONAMIDE ANTIBIOTICS)] Allergy (Unknown, Verified 12/31/23 08:15) HIVES, THROAT SWELLING Is last menstrual period known: Yes Last menstrual period: 01/12/20 Post menopausal: Yes Patient : No Do you need a note to return to daycare/school/sports/work: Yes (for surgery on thursday) HPI Comments Details: Presenting referred from Bella Neal CNM regarding abnormal pelvic ultrasound. The patient is doing well with no complaints no vaginal bleeding Pelvic ultrasound on 08/14/2023 showed the following: Uterus: The uterus measures 6.3 x 3.6 x 4.6 cm. Uterus is anteflexed and anteverted. Uterine fibroids: 1. Right-sided anterior body. 1.5 x 1.2 x 1.4 cm. Previous measurement 1.6 x 1.4 x 1.7 cm. 2. Right-sided posterior body. 1.2 x 1.1 x 1.1 cm. Previous measurement 1.7 x 1.6 x 1.3 cm 3. Right-sided anterior body. 1.6 x 1.1 x 1.4 cm. Previous measurement 1.4 x 1.2 x 1.4 cm. The double wall endometrial thickness is 7 mm. Adnexa: Neither ovary is visualized.. No adnexal abnormality. Cul-de-sac: No fluid in the cul-de-sac. Last co testing was in 08/05 was negative PFSH Medical History Thickened endometrium Uterine fibroid Pelvic fullness in female Subclinical hypothyroidism Overweight (BMI 25.0-29.9) Vitamin D deficiency Cervical disc herniation Allergic rhinitis Diabetes mellitus Pure hypercholesterolemia Surgical History History of colonoscopy (~12/2014) History of cervical spinal surgery Family History Father Stroke Mother Diabetes Hypertension Daughter Cervical cancer Social History Housing: House Alcohol intake: current Alcohol intake frequency: holidays/special occasions only Patient Tobacco Use Status: Former Tobacco user e-Cigarette/Vaping Use: Never Used Second Hand Smoke Exposure: Yes service: No Current occupational status: unemployed Sexual orientation: Straight/Heterosexual Gender identity: Female Cognitive needs: No Hearing needs: No Vision needs: Yes Female Reproductive History Menstrual Age of Menarche: 12 Date of last menstrual period: 01/12/20 Total pregnancies: 2 Full term: 2 Review of Systems Const All systems reviewed & are unremarkable except as noted in HPI and below Card Reports as per HPI and Reports no additional complaints Resp Reports as per HPI and Reports no additional complaints GI Reports as per HPI and Reports no additional complaints Reports as per HPI Physical Exam Vital Signs: Last Vital Signs BP 106/66 12/31/23 08:13 BMI result Body Mass Index 26.4 Const General: cooperative, healthy appearing and comfortable Resp Effort & Inspection: normal respiratory effort Auscultation: clear to auscultation bilaterally Percussion: percussion normal Cardio Palpation: normal PMI Rate: regular rate Rhythm: regular rhythm Heart sounds: no murmurs and no rubs Peripheral pulses: Peripheral pulses 2+ throughout GI Inspection: Yes normal to inspection Palpation (GI): Soft to palpation, nontender, no guarding, not rigid and No hep atosplenomegaly present Percussion: Yes normal to percussion Auscultation: normal bowel sounds Rectal Exam - Female: deferred General: Yes no CVA tenderness External Female Exam: normal external appearance and normal appearance of the urethra Speculum Exam - Vagina: normal appearance of the vagina, normal palpation, no lesions and no masses Speculum Exam - Cervix: normal appearance of the cervix, normal palpation, no lesions, no masses and nontender Bimanual exam- vagina & uterus: normal bimanual exam, normal palpation, uterine size normal, normal palpation, uterine shape normal, No Cervical tenderness present and non-tender Bimanual Exam- Adnexa, other: normal adnexae Back/Spine/Pelvis Back: no CVA tenderness Assessment & Plan Assessment & Plan (1) Uterine fibroid: Comment: US- fibroids Code(s): D25.9 - Leiomyoma of uterus, unspecified Category: Medical Plan: Discussed with the patient the findings on pelvic ultrasound & the risk of myosarcoma; discussed with the patient the options of treatment including expectant management versus hysterectomy; the pros and cons, risks benefits of each approach were discussed with the patient including the fact that in cases of myosarcoma, surgical treatment can lead to early diagnosis and positively affects the prognosis; after further discussion, the patient decided to proceed with expectant management. Will repeat pelvic ultrasound periodically. Instructions given to patient to call in case any of the following occurs: pressure symptoms, abnormal uterine bleeding, pelvic pain; and to schedule pelvic ultrasound and a follow-up appointment . All questions answered, the patient verbalized understanding and agreed with the plan . (2) Endometrial thickening on ultrasound: Code(s): R93.89 - Abnormal findings on diagnostic imaging of other specified body structures Category: Medical Plan: Discussed with the patient endometrial thickness above 4 mm in menopause , the differential diagnosis of a thickened endometrium includes but not limited to endometrial polyp, hyperplasia or carcinoma. Explained to the patient that endometrial each thickness is less predictive of endometrial neoplasia in asymptomatic patients, i.e. those without postmenopausal uterine bleeding. The sensitivity and specificity for detecting endometrial carcinoma at an endometrial thickness of >= 5mm was 83 and 72 percent, respectively; this is lower than in patients with bleeding. Studies have shown that postmenopausal patients without uterine bleeding who had an endometrial thickness >11 mm had an endometrial carcinoma risk of 6.7 percent; this risk is similar to postmenopausal patients with bleeding and an endometrial thickness >5 mm. Recommended endometrial sampling to rule endometrial pathology via either office endometrial biopsy or diagnostic hysteroscopy/D&C with possible polypectomy/myomectomy. All pros and cons, risks and benefits of each approach were discussed with the patient, the patient decided to proceed with endometrial biopsy. EMB attempted with multiple attempts of cervical dilatation to no avail, cervical stenosis preventing proceeding with endometrial biopsy and access the endometrial cavity. Will proceed with ultrasound and then schedule hysteroscopy D&C possible polypectomy/myomectomy under anesthesia afterwards. Instructions given the patient to schedule an ultrasound follow-up appointment within a week. All questions answered, the patient verbalized understanding Orders: Orders US pelvic and transvaginal Today D25.9 - Leiomyoma of uterus, unspecified Coding Level of Care Code Est Pt Level 3 (68910) Diagnoses Uterine fibroid D25.9 Endometrial thickening on ultrasound R93.89
== END 2023-12-31 08:55 | disposition home or self-care (01) ==
PROVIDERS: PCP Internal Medicine; Visit Provider Obstetrics & Gynecology
DX: D25.9 Leiomyoma of uterus, unspecified (principal); R93.89 Abnormal findings on diagnostic imaging of other specified body structures
CPT/HCPCS: 99213

== ENCOUNTER → 2023-12-31 08:05 | Outpatient (BNVA) | payer OTHER, SELFPAY | PROVIDERS: PCP Internal Medicine; Visit Provider Obstetrics & Gynecology | DX: D25.9 Leiomyoma of uterus, unspecified (principal); R93.89 Abnormal findings on diagnostic imaging of other specified body structures | CPT/HCPCS: 99212 ==

== ENCOUNTER 2024-01-01 14:20 | Outpatient (REF) | payer OTHER, SELFPAY | END 2024-01-01 14:21 | disposition home or self-care (01) | LOC: HO.US 14:20 | PROVIDERS: PCP Internal Medicine; Visit Provider Obstetrics & Gynecology | DX: D25.9 Leiomyoma of uterus, unspecified (principal) | CPT/HCPCS: 76830; 76856 ==

== ENCOUNTER 2024-01-06 12:54 | Outpatient (AMB) | payer OTHER, SELFPAY ==
[2024-01-06 13:12] VITALS: BMI 26.3
--- NOTE | 2024-01-06 13:12 | MHC.OFFVIS ---
Vital Signs 01/06/24 13:12 Height 5 ft Weight 134 lb 7.712 oz BMI 26.3 Intake Visit Reasons: Ultrasound Follow up/ OK PER HARJINDER Allergies Sulfa (Sulfonamide Antibiotics) [SULFA (SULFONAMIDE ANTIBIOTICS)] Allergy (Unknown, Verified 12/31/23 08:15) HIVES, THROAT SWELLING HPI Comments Details: Presenting for ultrasound follow-up, the report is still pending. Unofficial reading showed the following: Anteverted uterus 6.9 x 3.5 x 4.1 cm Multiple Uterine myomas: 1-myoma measuring 1.2 x 1.0 x 1.3 cm previously 1.5 x 1.4 x 1.2 cm 2-1.1 x 1.1 x 1.2 cm myoma previously 1.2 x 1.1 x 1.1 cm 3-3rd myoma not seen on current ultrasound previously measuring 1.6 x 1.4 x 1.1 cm Endometrial stripe thickened measuring 12 mm Last co testing in 08/05 was negative EMB attempted and failed because of endocervical /loweruterine segment resistance [facility] Medical History (Updated 01/06/24 @ 13:23 by Chinmay Gutierrez MD) Thickened endometrium Uterine fibroid Pelvic fullness in female Subclinical hypothyroidism Overweight (BMI 25.0-29.9) Vitamin D deficiency Cervical disc herniation Allergic rhinitis Diabetes mellitus Pure hypercholesterolemia Surgical History History of colonoscopy (~12/2014) History of cervical spinal surgery Family History Father Stroke Mother Diabetes Hypertension Daughter Cervical cancer Social History Housing: House Alcohol intake: current Alcohol intake frequency: holidays/special occasions only Patient Tobacco Use Status: Former Tobacco user e-Cigarette/Vaping Use: Never Used Second Hand Smoke Exposure: Yes service: No Current occupational status: unemployed Sexual orientation: Straight/Heterosexual Gender identity: Female Cognitive needs: No Hearing needs: No Vision needs: Yes Female Reproductive History Menstrual Age of Menarche: 12 Review of Systems Const All systems reviewed & are unremarkable except as noted in HPI and below Reports as per HPI and Reports no additional complaints GI Reports no additional complaints Reports no additional complaints Physical Exam Vital Signs: BMI result Body Mass Index 26.3 Assessment & Plan Assessment & Plan (1) Uterine fibroid: Code(s): D25.9 - Leiomyoma of uterus, unspecified Category: Medical Plan: Discussed with the patient the findings on pelvic ultrasound & the risk of myosarcoma; discussed with the patient the options of treatment including expectant management versus hysterectomy; the pros and cons, risks benefits of each approach were discussed with the patient including the fact that in cases of myosarcoma, surgical treatment can lead to early diagnosis and positively affects the prognosis; after further discussion, the patient decided to proceed with expectant management. Will repeat pelvic ultrasound periodically. Instructions given to patient to call in case any of the following occurs: pressure symptoms, any l uterine bleeding, pelvic pain; and to schedule a six-months pelvic ultrasound and a follow-up appointment . All questions answered, the patient verbalized understanding and agreed with the plan . (2) Endometrial thickening on ultrasound: Code(s): R93.89 - Abnormal findings on diagnostic imaging of other specified body structures Category: Medical Plan: Discussed with the patient the finding on ultrasound showing thickened endometrium, differential diagnosis include endometrial pathology including hyperplasia and/or malignancy or endometrial polyp. EMB attempted office failed because of endocervical/uterine segment stenosis. Recommended hysteroscopy D&C possible polypectomy to rule out endometrial pathology. Given the findings during endometrial biopsy recommended referral to [facility], minimally invasive ink blender surgery for hysteroscopy D&C possible polypectomy. All questions answered, the patient verbalized understanding. Instructed the patient to call our office back in case a referral appointment is not scheduled, missed or canceled so that we will assist on rescheduling another appointment, the patient verbalized understanding agreed with the plan. Coding Level of Care Code Est Pt Level 3 (16683) Diagnoses Uterine fibroid D25.9 Endometrial thickening on ultrasound R93.89
== END 2024-01-06 13:35 | disposition home or self-care (01) ==
LOC: HO.HWS 12:54
PROVIDERS: PCP Internal Medicine; Visit Provider Obstetrics & Gynecology
DX: D25.9 Leiomyoma of uterus, unspecified (principal); R93.89 Abnormal findings on diagnostic imaging of other specified body structures
CPT/HCPCS: 99213

== ENCOUNTER → 2024-01-06 12:54 | Outpatient (BNVA) | payer OTHER, SELFPAY | PROVIDERS: PCP Internal Medicine; Visit Provider Obstetrics & Gynecology | DX: D25.9 Leiomyoma of uterus, unspecified (principal); R93.89 Abnormal findings on diagnostic imaging of other specified body structures | CPT/HCPCS: 99212 ==

== ENCOUNTER 2024-01-14 18:41 | Inpatient (IN) | payer OTHER, SELFPAY ==
--- NOTE | ~2024-01-14 | XR_ITS ---
EXAMINATION: XR CHEST CLINICAL INFORMATION: NG tube placement. COMPARISON: CT abdomen and pelvis 01/14/2024. TECHNIQUE: Frontal view of the chest was obtained. FINDINGS: Enteric tube coils and terminates in projection with the gastric fundus. Normal appearance of the cardiomediastinal structures. No effusions or pneumothoraces. Normal pattern of pulmonary vasculature. XR/XR chest 1V IMPRESSION: Enteric tube terminating within the stomach. Electronically signed by: Mike Stubbs MD 01/15/2024 03:50 AM EDT
--- NOTE | ~2024-01-14 | CT_ITS ---
EXAMINATION: CT ABDOMEN AND PELVIS WITH CONTRAST CLINICAL INFORMATION: Constipation. Abdominal pain. COMPARISON: Pelvic ultrasonography 08/14/2023. TECHNIQUE: Multidetector volumetric images were obtained from the superior aspect of the liver through the pubic symphysis following administration 85 mL of Omnipaque 350 intravenous contrast. Sagittal and coronal reformatted images were obtained on the technologist's workstation. Oral contrast: No This CT examination was performed using dose optimization techniques as appropriate, variously including the following: *Automated exposure control *Adjustment of mA and/or kV according to patient size (this includes techniques or standardized protocols for targeted exams where dose is matched to indication/reason for exam; i.e. extremities or head) *Use of iterative reconstruction technique DLP: 425 mGy-cm FINDINGS: LUNG BASES: The visualized lung bases are unremarkable. LIVER, GALLBLADDER, AND BILIARY TREE: The liver is normal in size, shape, and attenuation. No focal hepatic lesion or biliary ductal dilatation is present. Multiple facial calcifications are noted in the gallbladder lumen consistent with partial visualization of cholelithiasis. The common bile duct measures 10 mm diameter. No intrahepatic biliary duct dilatation. PANCREAS: Unremarkable. SPLEEN: Unremarkable. ADRENAL GLANDS: Unremarkable. KIDNEYS AND URETERS: The kidneys are normal in size, shape, and attenuation. No hydronephrosis, hydroureter, or calculi seen. No perinephric stranding. BLADDER: Unremarkable. GASTROINTESTINAL TRACT: Contiguous abnormally dilated small bowel is present from ligament of Treitz to a transition point within the left lower abdominal quadrant within the distal ileum (series 3 image 51, series 7 image 40). No free intraperitoneal gas noted. Small quantity of low density free intraperitoneal fluid is present predominantly within the right subphrenic space, right lateral gutter and scattered interloop locations. No intestinal wall thickening noted. Focal angulation and tethering the small bowel mesentery is present adjacent to the small bowel transition point. Moderate fluid distention of the stomach is present. Normal appearance of appendix. A 2 mm density is present in the lumen of the base of the appendix may represent an appendicolith (series 3 image 50) ABDOMINAL WALL: No significant hernia is appreciated. LYMPH NODES: Normal. VASCULAR: Mild scattered atherosclerosis. PELVIC VISCERA: Normal appearance of the uterus and ovaries. OSSEOUS STRUCTURES: No suspicious skeletal lesions. CT/CT abdomen pelvis w IV con IMPRESSION: 1. High-grade small bowel obstruction with a transition point within the distal ileum within the left lower abdominal quadrant. Small quantity of free intraperitoneal fluid is present within the right subphrenic space, right lateral gutter and scattered interloop locations. No free intraperitoneal gas. Focal angulation of small bowel mesentery is present adjacent to the transition point. Findings are suspicious for obstruction related to otherwise occult adhesions or possibly an otherwise occult internal hernia. No free intraperitoneal gas. Moderate fluid distention of the stomach. 2. Cholelithiasis. 3. Mild prominence of the common bile duct. No intrahepatic biliary duct dilatation. Electronically signed by: Mike Stubbs MD 01/15/2024 12:17 AM EDT
[2024-01-14 18:53] VITALS: BP 154/63; PULSE 70; RESP 18; TEMP 36.6; O2SAT 97; BMI 26.2
--- NOTE | 2024-01-14 19:01 | ED_ITS ---
HPI - General Adult General Chief complaint: Abdominal Pain Stated complaint: abd pain Time Seen by Provider: 01/14/24 21:29 Source: patient Mode of arrival: ambulatory Limitations: no limitations History of Present Illness HPI narrative: Patient is a 68-year-old female with past medical history of hyperlipidemia, hypothyroidism, hyperlipidemia, diabetes, obesity, vitamin-D deficiency who presents emergency department for evaluation. She states that she has been having diffuse abdominal pain over the past 3 months with associated nausea. Pain has a waxing and waning intensity. Exacerbates after eating. Reports that yesterday she began vomiting reporting brown foul-smelling emesis with distention of her abdomen and worsening pain and nausea. Reports last bowel movement approximately 3 days ago. She presented to an urgent care for evaluation and was advised to come to the emergency department to rule out obstruction. She denies genitourinary symptoms. She denies any prior abdominal surgeries. Related Data Previous Rx's ?Medication ?Instructions ?Recorded aspirin 81 mg tablet,delayed 81 mg PO DAILY 90 days #90 tabs 03/14/21 release fluticasone propionate 50 2 spray intranasal DAILY PRN 03/14/21 mcg/actuation nasal allergy symptoms 90 days #3 spray,suspension multiple units blood sugar diagnostic (FreeStyle #100 ea 03/21/22 Lite Strips) lancets 28 gauge (FreeStyle #100 ea 03/21/22 Lancets) atorvastatin 40 mg tablet (Lipitor) 40 mg PO DAILY 90 days #90 tabs 02/18/23 metformin 500 mg tablet,extended 500 mg PO BID 90 days #180 tabs 02/19/23 release 24hr (osmotic) cetirizine 10 mg tablet 10 mg PO DAILY PRN allergy 06/10/23 symptoms 90 days #90 tabs levothyroxine 25 mcg tablet 25 mcg PO DAILY 90 days #90 tabs 06/10/23 Allergies Allergy/AdvReac Type Severity Reaction Status Date / Time Sulfa (Sulfonamide Allergy Unknown HIVES, Verified 01/14/24 18:58 Antibiotics) THROAT [SULFA (SULFONAMIDE SWELLING ANTIBIOTICS)] Review of Systems 2 Review of Systems: Yes all other systems are reviewed and are negative PMFSH Past Medical History Attestation statement: The following information was validated with the patient. Source: old records reviewed Medical History Thickened endometrium Uterine fibroid Pelvic fullness in female Subclinical hypothyroidism Overweight (BMI 25.0-29.9) Vitamin D deficiency Cervical disc herniation Allergic rhinitis Diabetes mellitus Pure hypercholesterolemia Surgical History History of colonoscopy (~12/2014) History of cervical spinal surgery Family History Family History Father Stroke Mother Diabetes Hypertension Daughter Cervical cancer Social History Social History Housing: House Alcohol intake: current Alcohol intake frequency: holidays/special occasions only Patient Tobacco Use Status: Former Tobacco user Smoked in Last 30 Days: No e-Cigarette/Vaping Use: Never Used Second Hand Smoke Exposure: Yes Use of substances other than those prescribed or required for medical reasons: No Advance Directives: No Advance Directives Information Provided: Yes Do you have a plan to hurt others: No Plan service: No Current occupational status: unemployed Sexual orientation: Straight/Heterosexual Gender identity: Female Cognitive needs: No Hearing needs: No Vision needs: Yes Physical Exam ED Vital Signs: Vital Signs - 24 hr 01/14/24 18:53 01/14/24 21:53 01/15/24 02:04 Temperature 97.9 F 98.7 F 97.9 F Pulse Rate 70 65 61 Respiratory Rate 18 20 16 Blood Pressure 154/63 H 158/66 H 123/52 L Pulse Oximetry 97 97 Oxygen Delivery Method Room Air Room Air Room Air BMI result Body Mass Index 26.2 Appearance: Alert.?Oriented to person, place and time. No acute distress.?Normal affect. Eyes: Pupils equal, round and reactive to light.? ENT: Pharynx normal.??Halitosis Neck: Normal inspection.? Neck supple.?? CVS: Heart sounds normal. Normal heart rate and rhythm.? Pulses normal.?? Respiratory: No respiratory distress.? Lung sounds clear to auscultation bilaterally?? Abdomen: Distended, diffuse tenderness primarily to the mid abdominal region. No CVAT. Hypoactive bowel sounds. No pulsatile mass.?? Skin: Skin warm and dry.? Normal skin color.? Extremities: No lower extremity edema.? Neuro: Moves all extremities spontaneously. Sensation intact bilaterally. No focal neuro deficits. Ambulates with normal steady gait. Course Course Course Narrative: RME, this is a rapid medical exam performed by Bin Hoffmann please refer to primary provider for complete H&P- 68-year-old female with history of hypothyroidism, hyperlipidemia, diabetes presents for evaluation abdominal pain, nausea and vomiting. Patient presents from urgent care due to the above. She has had constipation issues for the last 3 months. She presents with a distended abdomen, nausea vomiting. She was sent for a CT scan to rule out obstruction. Plan for labs, urinalysis an imaging to be deferred to primary ER provider. Reevaluation(s) Reevaluation #1: Procedure: NGT placement Time: 02:30 Medications Administered Discontinued Medications Generic Name Dose Route Start Last Admin Trade Name Freq PRN Reason Stop Dose Admin Sodium Chloride 1,000 mls @ 999 mls/hr 01/14/24 22:00 01/15/24 01:46 Ns IV 01/14/24 23:00 Infused .Q1H1M JOSE M Infusion Iohexol 85 ml 01/14/24 22:45 01/14/24 22:46 Iohexol 350 Mg/Ml 100 Ml Infus..Btl IV 01/14/24 22:46 85 ml ONCE ONE Administration Lidocaine HCl 15 ml 01/15/24 01:44 01/15/24 02:04 Lidocaine Hcl Viscous 2 % 15 Ml Solution MUCOUS MEM 01/15/24 01:45 15 ml ONCE ONE Administration Morphine Sulfate 2 mg 01/14/24 21:58 01/14/24 22:09 Morphine Sulfate 2 Mg/Ml Cartridge IVPUSH 01/14/24 21:59 2 mg ONCE ONE Administration Protocol Ondansetron HCl 4 mg 01/14/24 21:58 01/14/24 22:09 Ondansetron Hcl 4 Mg/2 Ml Vial IVPUSH 01/14/24 21:59 4 mg ONCE ONE Administration Medical Decision Making Medical Decision Making MDM Narrative: Patient is a 68-year-old female with past medical history of hyperlipidemia, hypothyroidism, hyperlipidemia, diabetes, obesity, vitamin-D deficiency for evaluation of abdominal pain with nausea vomiting constipation. Pertinent physical exam findings as per PE portion of this note. Concern for bowel obstruction versus patient, gastroenteritis, IBS, IBD. Considered cholecystitis, cholelithiasis. Obtaining CT of the abdomen and pelvis for further evaluation, morphine IV for pain management, Zofran IV for nausea. Reviewed serum labs obtained prior to my assumption of care has a leukocytosis of 14.9 which may be inflammatory in nature, no apparent source of infection at this time. Urinalysis is pending however she is without genitourinary symptoms. No electrolyte derangement. No CATRACHITA. LFTs and lipase are within normal range. Differential Diagnosis Differential Diagnoses: The differential diagnosis associated with the presentation includes (See narrative above) Admission/Observation Consideration of admission/observation: Escalation of care including admission/observation considered Consult Healthcare Provider Management of the patient was discussed with: Neighborhood Coordinator General surgery; Dr. Nuñez - admitted to surgery service with NGT Lab Data MDM Lab Attestation statement: I reviewed the patient's lab results. (See narrative above) 01/14/24 19:07 01/14/24 19:07 Labs: Lab Results 01/14/24 Range/Units 19:07 WBC 14.9 H (4.8-10.8) X10*3/uL RBC 4.76 (4.20-5.50) X10*6/uL Hgb 14.2 (12.0-16.0) g/dl Hct 42.6 (37.0-47.0) % MCV 89.5 (80.0-98.0) fL MCH 29.8 (27.0-33.0) pg MCHC 33.3 (31.0-35.0) g/dl RDW 12.7 (11.0-16.0) % Plt Count 367 D (160-400) X10*3/uL MPV 9.2 L (9.4-12.3) fL Immature Gran % (Auto) 0.3 (0.0-0.4) % Neut % (Auto) 82.4 H (45-73) % Lymph % (Auto) 12.2 L (20-40) % Grant % (Auto) 4.4 (2-11) % Eos % (Auto) 0.3 (0-4) % Baso % (Auto) 0.4 (0-2) % Lymph # (Auto) 1.8 (1.2-4.9) X10*3/uL Grant # (Auto) 0.7 (0.1-1.2) X10*3/uL Eos # (Auto) 0.0 (0.0-0.4) X10*3/uL Baso # (Auto) 0.1 (0.0-0.2) X10*3/uL Abs Immat Gran (auto) 0.04 H (0.00-0.03) X10*3/uL Absolute Neuts (auto) 12.3 H (2.0-8.3) x10*3/uL Absolute Nucleated RBC 0.000 (0.0-0.012) X10*3/uL Nucleated RBC % (auto) 0.0 (0.0-0.2) /100WBC Sodium 143 (135-145) mmol/L Potassium 4.2 (3.3-5.1) mmol/L Chloride 103 (96-108) mmol/L Carbon Dioxide 26 (22-29) mmol/L Anion Gap 18 (12-20) BUN 14 (9-16) mg/dL Creatinine 0.85 (0.5-1.4) mg/dL Estim Creat Clear Calc 50.9 Estimated GFR > 60 Random Glucose 158 H (60-115) mg/dL Calcium 9.8 D (8.4-10.2) mg/dL Total Bilirubin 0.6 (0.0-1.0) mg/dL Direct Bilirubin 0.2 (0.0-0.5) mg/dL AST 29 (5-31) U/L ALT 19 (0-31) U/L Alkaline Phosphatase 96 (39-117) U/L Total Protein 8.4 H (6.5-8.0) g/dL Albumin 4.7 (3.5-5.0) g/dL Lipase 21 (8-78) U/L Independent Interpretation I performed an independent interpretation of an: CT Scan ( dilated bowel loops, air-filled loops concerning for bowel obstruction) Radiology Impression Discussion of test interpretation with radiology: I have reviewed the radiologist's reading. Radiologist Impression: CT/CT abdomen pelvis w IV con IMPRESSION: 1. High-grade small bowel obstruction with a transition point within the distal ileum within the left lower abdominal quadrant. Small quantity of free intraperitoneal fluid is present within the right subphrenic space, right lateral gutter and scattered interloop locations. No free intraperitoneal gas. Focal angulation of small bowel mesentery is present adjacent to the transition point. Findings are suspicious for obstruction related to otherwise occult adhesions or possibly an otherwise occult internal hernia. No free intraperitoneal gas. Moderate fluid distention of the stomach. 2. Cholelithiasis. 3. Mild prominence of the common bile duct. No intrahepatic biliary duct dilatation. Independent Historian Clinical information obtained from an independent historian. History obtained from or confirmed by: Spouse External Record Review External record reviewed: Outpatient record Chronic Conditions Patient?s care impacted by: Diabetes Critical Care Time Critical Care Time Critical Care Time: Yes Total Critical Care Time: 35 Attestation: I personally attest to this critical care time spent taking care of the patient exclusive of all other billable procedures was approximately 35 minutes including initial evaluation of patient, ordering tests, CT interpretation, medical consultation, documentation, re-evaluation. Discharge Plan Discharge Clinical Impression: Small bowel obstruction Patient Disposition: Admitted As Inpatient Print Language: Macanese
[2024-01-14 19:10] LABS: MANUAL DIFF FLAG NO
[2024-01-14 19:11] LABS: Basophils Absolute Auto 0.1 X10*3/uL (0.0-0.2); Basophils Percent Auto 0.4 % (0-2); Eosinophils Percent Auto 0.3 % (0-4); Hematocrit 42.6 % (37.0-47.0); Hemoglobin 14.2 g/dl (12.0-16.0); Imm Gran Abs Auto 0.04 X10*3/uL (0.00-0.03); Imm Gran Pct Auto 0.3 % (0.0-0.4); Lymphocytes Absolute Auto 1.8 X10*3/uL (1.2-4.9); Lymphocytes Percent Auto 12.2 % (20-40); Mean Corpuscular HGB Conc 33.3 g/dl (31.0-35.0); Mean Corpuscular Hemoglobin 29.8 pg (27.0-33.0); Mean Corpuscular Volume 89.5 fL (80.0-98.0); Mean Platelet Volume 9.2 fL (9.4-12.3); Monocytes Absolute Auto 0.7 X10*3/uL (0.1-1.2); Monocytes Percent Auto 4.4 % (2-11); Neutrophils Absolute Auto 12.3 x10*3/uL (2.0-8.3); Neutrophils Percent Auto 82.4 % (45-73); Platelet Count 367 X10*3/uL (160-400); Red Blood Count 4.76 X10*6/uL (4.20-5.50); Red Cell Distribution Width 12.7 % (11.0-16.0); White Blood Count 14.9 X10*3/uL (4.8-10.8)
[2024-01-14 19:47] LABS: Alanine Aminotransferase 19 U/L (0-31); Albumin Level 4.7 g/dL (3.5-5.0); Anion Gap 18 (12-20); Aspartate Amino Transferase 29 U/L (5-31); Bilirubin Direct 0.2 mg/dL (0.0-0.5); Bilirubin Total 0.6 mg/dL (0.0-1.0); Blood Urea Nitrogen 14 mg/dL (9-16); Calcium 9.8 mg/dL (8.4-10.2); Carbon Dioxide 26 mmol/L (22-29); Chloride 103 mmol/L (96-108); Creatinine Clr Calc Pharmacy 50.9; Estimated Glomerular Filt Rate > 60; Glucose Random 158 mg/dL (60-115); Lipase 21 U/L (8-78); Potassium 4.2 mmol/L (3.3-5.1); Sodium 143 mmol/L (135-145); Total Protein 8.4 g/dL (6.5-8.0)
[2024-01-14 20:03] LABS: Alkaline Phosphatase 96 U/L (39-117)
[2024-01-14 21:53] VITALS: BP 158/66; PULSE 65; RESP 20; TEMP 37.1; O2SAT 97
[2024-01-14] MEDS: 0.9 % Sodium Chloride 1,000 ML 999 ML IV (22:09)
[2024-01-14] MEDS: Morphine Sulfate 2 MG/ML CARTRIDGE IVPUSH (22:09)
[2024-01-14] MEDS: ondansetron HCL 4 MG/2 ML VIAL IVPUSH (22:09)
[2024-01-14] MEDS: iohexoL 350 MG/ML 100 ML INFUS..BTL 85 ML IV (22:46)
--- NOTE | 2024-01-14 23:43 | PC.NURSE ---
Took report from off-going RN at 2300 hours. Pt is a 68 y/o female who presented to the ED for evaluation of RUQ pain with intermitent LUQ pain X 3 months, becoming the worst over the past 30 days. Last BM reported as 3+ days ago. Pt is awake, alert, and oriented X 4. Pleasant and engages in conversation appropriately. Family is at the bedside. No verbalized needs at shift change. Will continue to monitor for any changes.
[2024-01-15] VITALS (15 sets, daily range): BP systolic 115–139; BP diastolic 45–84; PULSE 59–96; RESP 14–20; TEMP 36.4–37.2; O2SAT 94–100
[2024-01-15] MEDS: Lidocaine HCl Viscous 2 % 15 ML SOLUTION MUCOUS MEM (02:04)
--- NOTE | 2024-01-15 02:31 | PC.NURSE ---
14 wolof NG tube placed in right nare with positive epigastric sounds. NG tube placed by MD at the bedside.
--- NOTE | 2024-01-15 04:25 | MHC.EDTECH ---
0400 rounding done ,vitals taken ,Patient awake ,and resting quietly ,Patient at bedside .Call dodson within Pt reach .
--- NOTE | 2024-01-15 07:55 | P.HPGS_ITS ---
History of Present Illness History of Present Illness Date of Service: 01/15/24 <Paula Mueller PA-C - Last Filed: 01/15/24 09:32> 01/15/24 <Enrrique Worthy MD - Last Filed: 01/15/24 10:44> Chief complaint: SBO <Paula Mueller PA-C - Last Filed: 01/15/24 09:32> Narrative: Velia Ye is a 68 year old female with PMH hyperlipidemia, hypothyroidism, diabetes who presented to the ED with complaints of abdominal pain. She states that she has been having intermittent upper abdominal pain over the past 3 months worsened by eating. This has been moderate in severity but yesterday it acutely worsened and she developed nausea, vomiting and bloating. She has been passing flatus but last bowel movement close to a week ago. Work up in the ED included CBC, BMP, LFTs which was significant for a leukocytosis of 14.9. CT scan abd/pelvis showed distended stomach with dilated small bowel is to a transition point within the left lower abdominal quadrant, focal angulation and tethering the small bowel mesentery is present adjacent to the small bowel transition point. She notes minimal improvement in pain this morning. NGT has not had significant drainage. She denies any prior abdominal surgeries. Last colonoscopy in 2014 was normal. <Paula Mueller PA-C - Last Filed: 01/15/24 09:32> Review of Systems Constitutional: Constitutional: Denies chills, Denies fever(s) and Denies weight loss <Paula Mueller PA-C - Last Filed: 01/15/24 09:32> ENT: Denies dizziness <MARLYN Patel Last Filed: 01/15/24 09:32> Cardiovascular: Cardiovascular: Denies chest pain and Denies dyspnea <MARLYN Patel Last Filed: 01/15/24 09:32> Respiratory: Respiratory: Denies cough and Denies dyspnea <MARLYN Patel Last Filed: 01/15/24 09:32> Gastrointestinal: Gastrointestinal: Reports as per HPI <MARLYN Patel Last Filed: 01/15/24 09:32> Genitourinary: Genitourinary: Denies dysuria <Paula Mueller PA-C Last Filed: 01/15/24 09:32> Integumentary/Breasts: Skin/Breast: Denies jaundice <Paula Mueller PA-C Last Filed: 01/15/24 09:32> Neurologic: Denies dizziness <Paula Mueller PA-C Last Filed: 01/15/24 09:32> [facility] Past Medical History Medical History: Medical History Thickened endometrium Uterine fibroid Pelvic fullness in female Subclinical hypothyroidism Overweight (BMI 25.0-29.9) Vitamin D deficiency Cervical disc herniation Allergic rhinitis Diabetes mellitus Pure hypercholesterolemia <Paula Mueller PA-C Last Filed: 01/15/24 09:32> Family History Family History: Family History Father Stroke Mother Diabetes Hypertension Daughter Cervical cancer <Paula Mueller PA-C Last Filed: 01/15/24 09:32> Surgical History Surgical History: Surgical History History of colonoscopy (~12/2014) History of cervical spinal surgery <Paula Mueller PA-C Last Filed: 01/15/24 09:32> Social History Social History: Social History Housing: House Alcohol intake: current Alcohol intake frequency: holidays/special occasions only Patient Tobacco Use Status: Former Tobacco user Smoked in Last 30 Days: No e-Cigarette/Vaping Use: Never Used Second Hand Smoke Exposure: Yes Use of substances other than those prescribed or required for medical reasons: No Advance Directives: No Advance Directives Information Provided: Yes Do you have a plan to hurt others: No Plan service: No Current occupational status: unemployed Sexual orientation: Straight/Heterosexual Gender identity: Female Cognitive needs: No Hearing needs: No Vision needs: Yes <Paula Mueller PA-C Last Filed: 01/15/24 09:32> Meds Allergies/Adverse reactions: Allergies Allergy/AdvReac Type Severity Reaction Status Date / Time Sulfa (Sulfonamide Allergy Unknown HIVES, Verified 01/14/24 18:58 Antibiotics) THROAT [SULFA (SULFONAMIDE SWELLING ANTIBIOTICS)] <MARLYN Patel Last Filed: 01/15/24 09:32> Home medications: Home Medications ?Medication ?Instructions ?Recorded ?Confirmed ?Last Taken ?Type levothyroxine 25 mcg tablet 25 mcg PO DAILY@0600 01/15/24 01/15/24 01/14/24 08:30 History <MARLYN Patel Last Filed: 01/15/24 09:32> Physical Exam Vital Signs: Vital Signs: Last Vital Signs Temp 98.3 F 01/15/24 06:21 Pulse 62 01/15/24 06:21 Resp 16 01/15/24 06:21 BP 128/55 L 01/15/24 06:21 Pulse Ox 97 01/15/24 06:21 O2 Del Method Room Air 01/15/24 06:21 BMI result Body Mass Index 26.2 <MARLYN Patel Last Filed: 01/15/24 09:32> Const: Other: uncomfortable appearing <MARLYN Patel Last Filed: 01/15/24 09:32> General: no acute distress and alert <MARLYN Patel Last Filed: 01/15/24 09:32> Orientation/consciousness: patient oriented x3 <MARLYN Patel Last Filed: 01/15/24 09:32> Resp: Effort & Inspection: normal respiratory effort <MARLYN Patel Last Filed: 01/15/24 09:32> Cardio: Rate: regular rate <MARLYN Patel Filed: 01/15/24 09:32> GI: Inspection: Yes distended and No scar <MARLYN Patel Last Filed: 01/15/24 09:32> Palpation (GI): Soft to palpation, Tenderness to palpation present (GI) (mild diffuse, moderate upper and right sided tenderness) with no rebound tenderness and no guarding <MARLYN Patel Filed: 01/15/24 09:32> Percussion: Yes tympanic to percussion <MARLYN Patel Filed: 01/15/24 09:32> Skin: General skin exam: no rashes or lesions noted <MARLYN Patel Filed: 01/15/24 09:32> Neuro: General: patient oriented x3 and moves all extremities <MARLYN Patel Filed: 01/15/24 09:32> Results Results Labs: Short CBC 01/14/24 Range/Units 19:07 WBC 14.9 H (4.8-10.8) X10*3/uL Hgb 14.2 (12.0-16.0) g/dl Hct 42.6 (37.0-47.0) % Plt Count 367 D (160-400) X10*3/uL BMP 01/14/24 19:07 Sodium 143 Potassium 4.2 Chloride 103 Carbon Dioxide 26 BUN 14 Creatinine 0.85 Calcium 9.8 D Liver Function 01/14/24 Range/Units 19:07 Total Bilirubin 0.6 (0.0-1.0) mg/dL Direct Bilirubin 0.2 (0.0-0.5) mg/dL AST 29 (5-31) U/L ALT 19 (0-31) U/L Alkaline Phosphatase 96 (39-117) U/L Albumin 4.7 (3.5-5.0) g/dL <MARLYN Patel Filed: 01/15/24 09:32> Abdomen CT scan report/results: report reviewed and image reviewed <MARLYN Patel Filed: 01/15/24 09:32> Assessment and Plan (1) Small bowel obstruction: Status: Acute <MARLYN Patel Filed: 01/15/24 09:32> Velia Ye is a 68 year old female with PMH hyperlipidemia, hypothyroidism, diabetes presenting with a 3 month history of upper abdominal pain that acutely worsened yesterday associated with nausea, vomiting and abdominal distention with CT scan concerning for high grade SBO. CT scan findings concerning in setting of virgin abdomen. Patient non toxic appearing but uncomfortable with distended abdomen and upper/right sided abd tenderness. Given the concern for high grade SBO without prior abd surgeries, surgical exploration was recommended. She has been added onto the OR schedule for today for exploratory laparoscopy, lysis of adhesions, possible small bowel resection, possible open. Risks, benefits, alternatives of the surgery were reviewed with the patient and included but not limited to bleeding, infection, numbness, pain, scarring, bowel or bladder injury and the patient wishes to proceed. She is NPO, will cont NGT to suction, IVF, PRN analgesics. <Paula Mueller PA-C - Last Filed: 01/15/24 09:32> Velia Ye is a 68 year old female with PMH hyperlipidemia, hypothy roidism, diabetes presenting with a 3 month history of upper abdominal pain that acutely worsened yesterday associated with nausea, vomiting and abdominal distention with CT scan concerning for high grade SBO. CT scan findings concerning in setting of virgin abdomen. Patient non toxic appearing but uncomfortable with distended abdomen and upper/right sided abd tenderness. Given the concern for high grade SBO without prior abd surgeries, surgical exploration was recommended. She has been added onto the OR schedule for today for exploratory laparoscopy, lysis of adhesions, possible small bowel resection, possible open. Risks, benefits, alternatives of the surgery were reviewed with the patient and included but not limited to bleeding, infection, numbness, pain, scarring, bowel or bladder injury and the patient wishes to proceed. She is NPO, will cont NGT to suction, IVF, PRN analgesics. As noted above. Reviewed with the patient and her significant other who was present as well. <Enrrique Worthy MD - Last Filed: 01/15/24 10:44> Quality Stroke Does the patient have a stroke diagnosis?: No <Enrrique Worthy MD - Last Filed: 01/15/24 10:44> VTE Prior VTE?: No <Enrrique Worthy MD - Last Filed: 01/15/24 10:44> VTE Risk Level:: Surgical - low <Enrrique Worthy MD - Last Filed: 01/15/24 10:44> VTE Device Contraindication: N/A - Device Ordered <Enrrique Worthy MD - Last Filed: 01/15/24 10:44> VTE Drug Contraindication: Treatment Not Indicated <Enrrique Worthy MD - Last Filed: 01/15/24 10:44> Procedures Date of Service Date of Service: 01/15/24 <Paula Mueller PA-C - Last Filed: 01/15/24 09:32> 01/15/24 <Enrrique Worthy MD - Last Filed: 01/15/24 10:44>
[2024-01-15 08:17] LABS: Glucose, Whole Blood 109 mg/dL (60-115)
[2024-01-15] MEDS: Lactated Ringers 1,000 ML 100 ML IVCONT ×2 (08:52→20:26)
--- NOTE | 2024-01-15 09:00 | PC.NURSE ---
report given to short stay. patient remains alert and oriented with even and unlabored respirations. NG tube in place w/ intermittent suction patient tolerating well. dark drainage in suction canister approx 100mLs currently. at bedside, call dodson within reach.
--- NOTE | 2024-01-15 09:41 | PHA.MEDREC ---
Addendum entered by Eri Gonzalez RPh 01/15/24 10:06: reviewed by [facility]. Original Note: Pharmacy Consult ? Medication Reconciliation Pharmacy has completed the medication reconciliation. Confirmed medications with patient spouse at bedside and patient. Patient spouse was able to confirm all her medications with help of patient. The spouse confirmed the patient has Ceterizine 10mg tabs and Flonase at home for allergies season and states patient doesn't need it right now. Both patient and spouse confirmed she is taking the Metformin 500mg tab 1 tab BID but in claims it has not been filled since 02/20/23, I asked more on it and they stated the patient is filling it at [facility]. I called the pharmacy and they confirmed she last picked that medication up 02/23/23 for a 90 day supply and has not attempted to refill it since. I also called [facility] on [address] since patient and stated they use that incase, and I asked if Metformin 500mg was filled there and they have no claims for that in their system. The patient confirmed she last took her medications yesterday morning around [id number].
--- NOTE | 2024-01-15 13:27 | HO.ANESPROP2 ---
[facility] Active Problems Active Problems: All Active Problems Small bowel obstruction (Acute) Endometrial thickening on ultrasound (Acute) Fibroid (Acute) Encounter for well woman exam with routine gynecological exam (Acute) Uterine fibroid (Acute) Pelvic fullness in female (Acute) Breast cancer screening (Acute) Cervical cancer screening (Acute) Right knee pain (Acute) Subclinical hypothyroidism (Acute) Overweight (BMI 25.0-29.9) (Acute) Abnormal TSH (Acute) Annual physical exam (Acute) Vitamin D deficiency (Acute) Cervical disc herniation (Acute) Allergic rhinitis (Acute) Obesity (BMI 30-39.9) (Acute) Diabetes mellitus (Acute) Pure hypercholesterolemia (Acute) Past Medical History Medical History Thickened endometrium Uterine fibroid Pelvic fullness in female Subclinical hypothyroidism Overweight (BMI 25.0-29.9) Vitamin D deficiency Cervical disc herniation Allergic rhinitis Diabetes mellitus Pure hypercholesterolemia Family History Family History Father Stroke Mother Diabetes Hypertension Daughter Cervical cancer Surgical History Surgical History History of colonoscopy (~12/2014) History of cervical spinal surgery History of Problems with Anesthesia: No Social History Social History Housing: House Are you a primary home health care worker to a significant other at home: No Do you presently have visiting nurse or other home services: No Alcohol intake: current Alcohol intake frequency: holidays/special occasions only Patient Tobacco Use Status: Former Tobacco user e-Cigarette/Vaping Use: Never Used Second Hand Smoke Exposure: Yes service: No Current occupational status: unemployed Sexual orientation: Straight/Heterosexual Gender identity: Female Cognitive needs: No Hearing needs: No Vision needs: Yes Meds Allergies Allergy/AdvReac Type Severity Reaction Status Date / Time Sulfa (Sulfonamide Allergy Unknown HIVES, Verified 01/14/24 18:58 Antibiotics) THROAT [SULFA (SULFONAMIDE SWELLING ANTIBIOTICS)] Active Medications: Current Medications Acetaminophen (Acetaminophen 325 Mg Tablet) 650 mg PO Q6H PRN PRN Reason: Pain, Mild (Pain Scale 1-3), fever or headache Calcium Carbonate (Calcium Carbonate 750 Mg Tab.Chew) 750 mg PO Q4H PRN PRN Reason: Heartburn Glucose (Glucose Gel 15 Gm Gel..Gram.) 15 gm PO Q15M PRN; Protocol PRN Reason: per Hypoglycemia Standing Ord. Lactated Ringer's (Lr) 1,000 mls @ 100 mls/hr IVCONT .Q10H [facility] Last Admin: 01/15/24 08:52 Dose: 100 mls/hr Dextrose (D10) 250 mls @ 750 mls/hr IV Q15M PRN; Protocol PRN Reason: per Hypoglycemia Standing Ord. Insulin Human Lispro (Insulin Lispro 100 Unit/Ml 3 Ml Vial) 0 unit SUBCUT QIDACHS [facility]; Protocol Magnesium Hydroxide (Milk Of Magnesia 30 Ml Oral.Susp) 30 ml PO DAILY PRN PRN Reason: Constipation Melatonin (Melatonin 3 Mg Tablet) 6 mg PO BEDTIME PRN PRN Reason: Insomnia Morphine Sulfate (Morphine Sulfate 4 Mg/Ml Cartridge) 4 mg IVPUSH Q4H PRN; Protocol PRN Reason: Pain, Severe (Pain Scale 7-10) Ondansetron HCl (Ondansetron Hcl 4 Mg/2 Ml Vial) 4 mg IVPUSH Q8H PRN PRN Reason: Nausea and Vomiting Sodium Chloride (0.9 % Sodium Chloride Flush 3 Ml Syringe) 3 ml IVFLUSH [facility] Sodium Chloride (0.9 % Sodium Chloride Flush 3 Ml Syringe) [facility] Home Medications ?Medication ?Instructions ?Recorded ?Confirmed ?Last Taken ?Type levothyroxine 25 mcg tablet 25 mcg PO DAILY@0600 01/15/24 01/15/24 01/14/24 08:30 History Exam Height,Weight and Vital Signs: Height 5 ft Weight 60.9 kg Last Vital Signs Temp 97.9 F 01/15/24 11:42 Pulse 59 01/15/24 11:42 Resp 20 01/15/24 11:42 BP 130/50 L 01/15/24 11:42 Pulse Ox 98 01/15/24 11:42 O2 Del Method Room Air 01/15/24 11:42 Pertinent Lab Results Pertinent Lab Results: Laboratory Tests 01/14/24 01/15/24 01/15/24 19:07 08:12 10:38 WBC 14.9 H RBC 4.76 Hgb 14.2 Hct 42.6 MCV 89.5 MCH 29.8 MCHC 33.3 RDW 12.7 Plt Count 367 D MPV 9.2 L Immature Gran % (Auto) 0.3 Neut % (Auto) 82.4 H Lymph % (Auto) 12.2 L Mcduffie % (Auto) 4.4 Eos % (Auto) 0.3 Baso % (Auto) 0.4 Lymph # (Auto) 1.8 Mcduffie # (Auto) 0.7 Eos # (Auto) 0.0 Baso # (Auto) 0.1 Abs Immat Gran (auto) 0.04 H Absolute Neuts (auto) 12.3 H Absolute Nucleated RBC 0.000 Nucleated RBC % (auto) 0.0 Sodium 143 Potassium 4.2 Chloride 103 Carbon Dioxide 26 Anion Gap 18 BUN 14 Creatinine 0.85 Estim Creat Clear Calc 50.9 Estimated GFR > 60 POC Glucose 109 Random Glucose 158 H Calcium 9.8 D Total Bilirubin 0.6 Direct Bilirubin 0.2 AST 29 ALT 19 Alkaline Phosphatase 96 Total Protein 8.4 H Albumin 4.7 Lipase 21 Blood Type A Positive Antibody Screen NEGATIVE Airway Mallampati Class: II TM Dist: >3cm Neck ROM: Full Loose/Missing/Broken Teeth: No Heart: RRR Lungs: CTA Assessment and Plan Assessment Anesthesia Assessment: Anesthesia Plan Discussed and Chart Reviewed Final Anesthetic Review History of Problems with Anesthesia: No NPO: Yes ASA Class: II and Emergency Final Preanesthetic Review: Meds/Allgs Chart Reviewed, Consent Obtained/Reviewed and Anes Risks/Benef Reviewed Patient Risk: Low Procedure Risk: Intermediate Anesthetic Plan Anesthetic Plan: GA Disposition: Standard PACU
[2024-01-15] MEDS: Lactated Ringers 1,000 ML 50 ML IVCONT (13:43)
--- NOTE | 2024-01-15 16:00 | P.OP_ITS ---
Operative Note Operative Note Date of Service: 01/15/24 Narrative: Preoperative diagnosis: [] Distal small-bowel obstruction Postop diagnosis: [] The same, Procedure [] exploratory laparotomy, adhesiono lysis, enterolysis, partial omentectomy, appendectomy, drainage of ascites Surgeon: [] Deacon Supervisor Metal Placing: [] Evrin Collins Type of Anesthesia: . [] General Indication for surgery: [] Patient had a complete distal small bowel obstruction. Intraoperative findings demonstrated marked cicatrization and scarring involving the mesentery of the small bowel as well as what appeared to be omental caking of ill-defined etiology which involved adhesions of this process to the transverse colon and small bowel as well. Cicatrization and scarring of the appendix in an inflammatory mass also noted. Marked serous colored ascites. Corpulent abdomen. Adhesive band involving the distal small bowel which was the transition point of markedly dilated small bowel with distal decompressed small bowel. Findings: [] Patient brought to the operating room, placed on operative table supine position, after an adequate level of general anesthesia was induced, the patient's abdomen is prepped and draped in usual sterile fashion using a midline incision, this carried down through skin, subcutaneous tissue, and linea alba. Posterior fascia and peritoneum were opened and stented lengthening incision. Findings were as noted above. Initially several 100 cc's of ascites was dr ained. Exploration of the abdominal cavity demonstrated findings as noted above. A scarring/band involving distal small bowel which extended from the retroperitoneum down to the distal bowel was causing obstruction and this was sharply taken down and specimen sent to pathology. Further exploration demonstrated the appendix in a cicatrization/mass. Because of unclear etiology, it was decided to excise the appendix by taken his mesentery,clamped, cut, and tied with 2-0 Vicryl ties and transected the appendix at the cecal base using KIMBERLYN stapler. Further exploration demonstrated significant omental caking involving the entire omentum with adhesions of this process to the transverse colon and proximal small bowel. The omentum was from the above- mentioned structures and there was no evidence of direct bowel wall invasion or bowel lumen compromise. Omentectomy was accomplished using ligature device and specimen sent to pathology for initial frozen section but pathology decided to wait for permanent results because it would not change the operative procedure. Abdominal cavity was irrigated and the small-bowel was run in its entirety with no other pathology demonstrated. Colon was also run and palpated with no other obvious pathology. Uterus with multiple leiomyomas/fibroids demonstrated. Attempt to identify ovaries was limited because of marked scarring and cicatr ization in the pelvis. Abdominal cavity was again very copiously irrigated secured hemostasis. Incision was closed in mass closure fascia using looped 1. PDS. Skin incision was closed using interrupted inverted widely spaced deep dermal 3-0 Vicryl sutures followed by running subcuticular 4-0 Vicryl sutures. Steri-Strips and sterile dressings were applied. Wound was infiltrated with 0.5% Marcaine at completion. Sponge, needle, and instrument counts reported correct. Patient tolerated the procedure well and emerged from anesthesia stable condition. EBL minimal
[2024-01-15] MEDS: Acetaminophen 1,000 MG/100 ML PIGGYBACK 400 MG IV (17:30)
[2024-01-15 17:48] LABS: Glucose, Whole Blood 179 mg/dL (60-115)
[2024-01-15 18:36] LABS: Appearance Urine Cloudy; Color Urine Yellow; Glucose Urine UA Negative (Negative); Leukocyte Esterase Urine Negative (Negative); Nitrite Urine Negative (Negative); PH 5.5 (5.0-9.0); Specific Gravity - Urine >= 1.030 (1.005-1.025); UMIC TRIGGER UACC YES; Urine Blood Large (3+) (Negative); Urine Ketones 15 mg/dL (Negative); Urine Protein 100 (2+) mg/dL (Neg-Trace)
[2024-01-15 18:54] LABS: Bacteria Urine None Seen (None Seen); Hyaline Casts Urine >20 /LPF (0-2); RBC Urine >20 /HPF (0-2); UACC Culture Trigger YES
--- NOTE | 2024-01-15 20:00 | PC.NURSE ---
This RN initiated SUPPLY CHAIN DIRECTOR pump at 1900, Dr. Worthy made aware. Pt resting comfortable with even respirations and non-labored breathing, no apparent distress at this time.
[2024-01-15 20:26] LABS: Glucose, Whole Blood 189 mg/dL (60-115)
[2024-01-15] MEDS: Morphine Sulfate/NS 100 MG/100 ML PLAST..BAG IVCONT (21:58)
--- NOTE | 2024-01-15 22:15 | PC.NURSE ---
APPOINTMENT SETTER morphine started as ordered. Upon saving the medication in MAR a message appear to enter a administration rate for initial documentation. The basal rate per Md order is 0, bolus dose is 0.7 mg. The system did not allow rate 0 to enter therefore bolus dose was placed. Pharmacy called with explanation .
[2024-01-16] VITALS (12 sets, daily range): BP systolic 122–140; BP diastolic 57–81; PULSE 71–79; RESP 12–18; TEMP 36.1–37.2; O2SAT 95–99
[2024-01-16] MEDS: Acetaminophen 1,000 MG/100 ML PIGGYBACK 400 MG IV ×5 (00:38→23:53)
[2024-01-16] MEDS: Lactated Ringers 1,000 ML 100 ML IVCONT ×3 (02:46→22:05)
[2024-01-16] MEDS: Levothyroxine Sodium 25 MCG TABLET PO (06:07)
[2024-01-16 06:57] LABS: Basophils Percent Auto 0.2 % (0-2); Eosinophils Percent Auto 0.2 % (0-4); Hematocrit 40.7 % (37.0-47.0); Hemoglobin 13.2 g/dl (12.0-16.0); Imm Gran Abs Auto 0.07 X10*3/uL (0.00-0.03); Imm Gran Pct Auto 0.4 % (0.0-0.4); Lymphocytes Absolute Auto 1.8 X10*3/uL (1.2-4.9); Lymphocytes Percent Auto 10.8 % (20-40); MANUAL DIFF FLAG SCAN; Mean Corpuscular HGB Conc 32.4 g/dl (31.0-35.0); Mean Corpuscular Hemoglobin 30.1 pg (27.0-33.0); Mean Corpuscular Volume 92.9 fL (80.0-98.0); Mean Platelet Volume 9.7 fL (9.4-12.3); Monocytes Absolute Auto 1.5 X10*3/uL (0.1-1.2); Monocytes Percent Auto 9.4 % (2-11); Neutrophils Absolute Auto 12.9 x10*3/uL (2.0-8.3); Platelet Count 342 X10*3/uL (160-400); Red Blood Count 4.38 X10*6/uL (4.20-5.50); Red Cell Distribution Width 13.1 % (11.0-16.0); SCAN SMEAR FLAG 1; White Blood Count 16.3 X10*3/uL (4.8-10.8)
[2024-01-16 07:09] LABS: Alanine Aminotransferase 14 U/L (0-31); Albumin Level 3.3 g/dL (3.5-5.0); Alkaline Phosphatase 62 U/L (39-117); Anion Gap 14 (12-20); Aspartate Amino Transferase 29 U/L (5-31); Bilirubin Total 0.7 mg/dL (0.0-1.0); Blood Urea Nitrogen 16 mg/dL (9-16); Calcium 8.4 mg/dL (8.4-10.2); Carbon Dioxide 26 mmol/L (22-29); Chloride 107 mmol/L (96-108); Creatinine Clr Calc Pharmacy 54.7; Estimated Glomerular Filt Rate > 60; Glucose Random 178 mg/dL (60-115); Potassium 4.8 mmol/L (3.3-5.1); Sodium 142 mmol/L (135-145); Total Protein 5.8 g/dL (6.5-8.0)
[2024-01-16 07:32] LABS: SLIDE REVIEW VERIFIED
[2024-01-16 08:24] LABS: Glucose, Whole Blood 148 mg/dL (60-115)
--- NOTE | 2024-01-16 10:33 | MHC.CM.PN ---
PT LIVES WITH ,INDEPENDENT ,HAS OWN RIDE HOME
--- NOTE | 2024-01-16 11:44 | HO.POSTANES ---
Post Anesthesia Evaluation Post Anesthesia Evaluation Date of Service: 01/16/24 Vital Signs: Vital Signs Temp Pulse Resp BP Pulse Ox O2 Del Method O2 Flow Rate 01/16/24 10:14 98 F 78 12 130/60 96 Room Air 01/16/24 07:43 97.5 F 72 12 132/63 98 Nasal Cannula 2 01/16/24 04:50 98.1 F 77 16 129/63 96 Room Air 01/16/24 03:11 14 122/60 99 Nasal Cannula 2 01/16/24 00:50 98.1 F 75 18 126/61 99 Nasal Cannula 2 Anesthesia: General Endotracheal-GETA Mental Status: Awake Pain Control: Satisfactory Nausea/Vomiting: None Hydration: Adequate Anesthesia-Related Issues: No Anes. Related Issues
[2024-01-16 12:14] LABS: Glucose, Whole Blood 160 mg/dL (60-115)
--- NOTE | 2024-01-16 15:01 | P.PNGS_ITS ---
Subjective Subjective Date of Service: 01/16/24 Interval history: Aside from incisional discomfort, patient is doing well. Her abdominal symptoms are much improved. No gas or stool yet. Minimal NG tube output. 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 Physical Exam 2 Vital Signs: Vital Signs: Last Vital Signs Temp 97.0 F 01/16/24 11:58 Pulse 74 01/16/24 14:00 Resp 16 01/16/24 14:00 BP 132/60 01/16/24 14:00 Pulse Ox 97 01/16/24 14:00 O2 Del Method Room Air 01/16/24 14:00 O2 Flow Rate 2 01/16/24 07:43 BMI result Body Mass Index 26.2 GI: Other: Abdomen is soft. Incision dressing clean dry and intact Objective Data Active Medications Glucose (Glucose Gel 15 Gm Gel..Gram.) 15 gm PO Q15M PRN; Protocol PRN Reason: per Hypoglycemia Standing Ord. Heparin Sodium (Porcine) (Heparin Sodium,Porcine 5,000 Unit/Ml Vial) 5,000 unit SUBCUT Q8H [facility] Hydromorphone HCl (Hydromorphone Hcl 1 Mg/Ml Syringe) 1 mg IVPUSH Q2H PRN; Protocol PRN Reason: severe pain Lactated Ringer's (Lr) 1,000 mls @ 100 mls/hr IVCONT .Q10H [facility] Last Admin: 01/16/24 12:10 Dose: 100 mls/hr Documented By: PURNIMA Dextrose (D10) 250 mls @ 750 mls/hr IV Q15M PRN; Protocol PRN Reason: per Hypoglycemia Standing Ord. Acetaminophen (Ofirmev) 1,000 mg in 100 mls @ 400 mls/hr IV Q6H [facility] Last Infusion: 01/16/24 12:25 Dose: Infused Documented By: PURNIMA Morphine Sulfate (Morphine Sulfate/Ns) 100 mg in 100 mls @ 0 mls/hr IVCONT .Q0M [facility]; Protocol Last Admin: 01/15/24 21:58 Dose: 0.7 mg/hr, 0.7 mls/hr Documented By: CAMRYN Insulin Human Lispro (Insulin Lispro 100 Unit/Ml 3 Ml Vial) 0 unit SUBCUT QIDACHS [facility]; Protocol Last Admin: 01/16/24 12:16 Dose: Not Given Documented By: PURNIMA Non-Admin Reason: NPO Levothyroxine Sodium (Levothyroxine Sodium 25 Mcg Tablet) 25 mcg PO DAILY@0600 [facility] Last Admin: 01/16/24 06:07 Dose: 25 mcg Documented By: CAMRYN Melatonin (Melatonin 3 Mg Tablet) 6 mg PO BEDTIME PRN PRN Reason: Insomnia Naloxone HCl (Naloxone Hcl 0.4 Mg/Ml Vial) 0.2 mg IVPUSH Q2M PRN PRN Reason: Excessive sedation or RR < 8 Ondansetron HCl (Ondansetron Hcl 4 Mg/2 Ml Vial) 4 mg IVPUSH Q8H PRN PRN Reason: Nausea and Vomiting Sodium Chloride (0.9 % Sodium Chloride Flush 3 Ml Syringe) 3 ml IVFLUSH QSHIFT [facility] Last Admin: 01/16/24 07:48 Dose: Not Given Documented By: PURNIMA Non-Admin Reason: IV Running Labs 01/16/24 06:00 01/16/24 06:00 Labs: Laboratory Results - last 24 hr 01/15/24 01/15/24 01/15/24 17:44 20:22 Unknown MCV MCH MCHC RDW Plt Count MPV Immature Gran % (Auto) Neut % (Auto) Lymph % (Auto) [place] % (Auto) Eos % (Auto) Baso % (Auto) Lymph # (Auto) [place] # (Auto) Eos # (Auto) Baso # (Auto) Abs Immat Gran (auto) Absolute Neuts (auto) Absolute Nucleated RBC Nucleated RBC % (auto) Smear Tech's Comments Anion Gap Estim Creat Clear Calc Estimated GFR POC Glucose 179 H 189 H Random Glucose Calcium Total Bilirubin AST ALT Alkaline Phosphatase Total Protein Albumin Urine Color Yellow Urine Appearance Cloudy Urine pH 5.5 Ur Specific [place] >= 1.030 H Urine Protein 100 (2+) H Urine Glucose (UA) Negative Urine Ketones 15 Urine Blood Large (3+) H Urine Nitrite Negative Ur Leukocyte Esterase Negative Urine RBC >20 H Urine WBC 11-20 H Ur Squamous Epith Cells 6-10 Urine Bacteria None Seen Hyaline Casts >20 01/16/24 01/16/24 01/16/24 06:00 08:20 12:10 MCV 92.9 MCH 30.1 MCHC 32.4 RDW 13.1 Plt Count 342 MPV 9.7 Immature Gran % (Auto) 0.4 Neut % (Auto) 79.0 H Lymph % (Auto) 10.8 L [place] % (Auto) 9.4 Eos % (Auto) 0.2 Baso % (Auto) 0.2 Lymph # (Auto) 1.8 [place] # (Auto) 1.5 H Eos # (Auto) 0.0 Baso # (Auto) 0.0 Abs Immat Gran (auto) 0.07 H Absolute Neuts (auto) 12.9 H Absolute Nucleated RBC 0.000 Nucleated RBC % (auto) 0.0 Smear Tech's Comments VERIFIED Anion Gap 14 Estim Creat Clear Calc 54.7 Estimated GFR > 60 POC Glucose 148 H 160 H Random Glucose 178 H Calcium 8.4 D Total Bilirubin 0.7 AST 29 ALT 14 Alkaline Phosphatase 62 Total Protein 5.8 L Albumin 3.3 L Urine Color Urine Appearance Urine pH Ur Specific [place] Urine Protein Urine Glucose (UA) Urine Ketones Urine Blood Urine Nitrite Ur Leukocyte Esterase Urine RBC Urine WBC Ur Squamous Epith Cells Urine Bacteria Hyaline Casts Microbiology Microbiology Results: Microbiology 01/15/24 Unknown Urine Culture - Preliminary Urine clean catch - Clean Catch Midstream No growth to date. Procedures Date of Service Date of Service: 01/16/24 Progress Note: A&P Assessment and plan (1) Postop check: Status: Acute Plan NG tube to gravity and then if tolerating well can DC NG tube later today, DC Boyce, encourage incentive spirometry, ambulation, ice chips for now. Time Spent With Patient Time: Total time managing care of this patient today ____ minutes. Quality Stroke Does the patient have a stroke diagnosis?: No VTE Prior VTE?: No VTE Risk Level:: Surgical - low VTE Device Contraindication: N/A - Device Ordered VTE Drug Contraindication: Treatment Not Indicated
[2024-01-16 16:22] LABS: Glucose, Whole Blood 145 mg/dL (60-115)
[2024-01-16] MEDS: Heparin Sodium,Porcine 5,000 UNIT/ML VIAL 5000 UNIT SUBCUT ×2 (17:16→23:54)
--- NOTE | 2024-01-16 18:35 | PC.NURSE ---
Boyce removed @ [address] Worthy. DTV #1 @ 2114. NG tube clamped @[address] Worthy. Checked residual @ 1814. Residual 5cc. Removed tube per Dr Worthy verbal order. Pt ambulated [address] Encouraged Incentive Spirometer and splinting. Using REHABILITATION CASE COORDINATOR pump infrequently.
[2024-01-16] MEDS: Morphine Sulfate/NS 100 MG/100 ML PLAST..BAG IVCONT (20:11)
[2024-01-16 20:33] LABS: Glucose, Whole Blood 125 mg/dL (60-115)
[2024-01-17] VITALS (12 sets, daily range): BP systolic 113–151; BP diastolic 54–66; PULSE 66–81; RESP 16–18; TEMP 36.2–36.9; O2SAT 92–96
[2024-01-17] MEDS: Levothyroxine Sodium 25 MCG TABLET PO (06:05)
[2024-01-17 07:36] LABS: Glucose, Whole Blood 86 mg/dL (60-115)
[2024-01-17] MEDS: Lactated Ringers 1,000 ML 100 ML IVCONT (07:45)
[2024-01-17] MEDS: Heparin Sodium,Porcine 5,000 UNIT/ML VIAL 5000 UNIT SUBCUT ×2 (07:45→16:31)
[2024-01-17 11:21] LABS: Glucose, Whole Blood 69 mg/dL (60-115)
[2024-01-17] MEDS: Dextrose 10 % 250 ML 750 ML IV (11:40)
[2024-01-17] MEDS: Acetaminophen 1,000 MG/100 ML PIGGYBACK 400 MG IV ×3 (12:07→23:57)
--- NOTE | 2024-01-17 15:15 | P.PNGS_ITS ---
Subjective Subjective Date of Service: 01/17/24 Interval history: Patient evaluated. Patient was also present. No flatus or stool yet. 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 Patient was been getting about of bed, doing her incentive spirometry. Voiding on her own. Physical Exam 2 Vital Signs: Vital Signs: Last Vital Signs Temp 97.1 F 01/17/24 14:00 Pulse 79 01/17/24 14:00 Resp 18 01/17/24 14:00 BP 132/60 01/17/24 14:00 Pulse Ox 93 01/17/24 14:00 O2 Del Method Room Air 01/17/24 14:00 O2 Flow Rate 2 01/16/24 07:43 BMI result Body Mass Index 26.2 GI: Other: Abdomen mildly distended, soft. Incision clean dry and intact Objective Data Active Medications Glucose (Glucose Gel 15 Gm Gel..Gram.) 15 gm PO Q15M PRN; Protocol PRN Reason: per Hypoglycemia Standing Ord. Heparin Sodium (Porcine) (Heparin Sodium,Porcine 5,000 Unit/Ml Vial) 5,000 unit SUBCUT Q8H [facility] Last Admin: 01/17/24 07:45 Dose: 5,000 unit Documented By: PURNIMA Hydromorphone HCl (Hydromorphone Hcl 1 Mg/Ml Syringe) 1 mg IVPUSH Q2H PRN; Protocol PRN Reason: severe pain Dextrose (D10) 250 mls @ 750 mls/hr IV Q15M PRN; Protocol PRN Reason: per Hypoglycemia Standing Ord. Last Infusion: 01/17/24 12:10 Dose: Infused Documented By: PURNIMA Acetaminophen (irmev) 1,000 mg in 100 mls @ 400 mls/hr IV Q6H [facility] Last Infusion: 01/17/24 12:22 Dose: Infused Documented By: PURNIMA Morphine Sulfate (Morphine Sulfate/Ns) 100 mg in 100 mls @ 0 mls/hr IVCONT .Q0M [facility]; Protocol Last Admin: 01/16/24 20:11 Dose: 0.7 mg/hr, 0.7 mls/hr Documented By: SALMA Insulin Human Lispro (Insulin Lispro 100 Unit/Ml 3 Ml Vial) 0 unit SUBCUT QIDACHS [facility]; Protocol Last Admin: 01/17/24 11:30 Dose: Not Given Documented By: PURNIMA Non-Admin Reason: No Insulin Coverage Levothyroxine Sodium (Levothyroxine Sodium 25 Mcg Tablet) 25 mcg PO DAILY@0600 [facility] Last Admin: 01/17/24 06:05 Dose: 25 mcg Documented By: SALMA Melatonin (Melatonin 3 Mg Tablet) 6 mg PO BEDTIME PRN PRN Reason: Insomnia Naloxone HCl (Naloxone Hcl 0.4 Mg/Ml Vial) 0.2 mg IVPUSH Q2M PRN PRN Reason: Excessive sedation or RR < 8 Ondansetron HCl (Ondansetron Hcl 4 Mg/2 Ml Vial) 4 mg IVPUSH Q8H PRN PRN Reason: Nausea and Vomiting Sodium Chloride (0.9 % Sodium Chloride Flush 3 Ml Syringe) 3 ml IVFLUSH QSHIFT [facility] Last Admin: 01/17/24 07:46 Dose: Not Given Documented By: PURNIMA Non-Admin Reason: IV Running Labs 01/16/24 06:00 01/16/24 06:00 Labs: Laboratory Results - last 24 hr 01/16/24 01/16/24 01/17/24 16:07 20:05 07:14 POC Glucose 145 H 125 H 86 01/17/24 11:18 POC Glucose 69 Microbiology Microbiology Results: Microbiology 01/15/24 Unknown Urine Culture - Final Urine clean catch - Clean Catch Midstream No growth. Procedures Date of Service Date of Service: 01/17/24 Progress Note: A&P Assessment and plan (1) Status post laparotomy with lysis of adhesions: Status: Acute Plan Continue out of bed/ambulate, incentive spirometry, sips p.o. liquids. Awaiting full bowel function Time Spent With Patient Time: Total time managing care of this patient today ____ minutes. Quality Stroke Does the patient have a stroke diagnosis?: No VTE Prior VTE?: No VTE Risk Level:: Surgical - low VTE Device Contraindication: N/A - Device Ordered VTE Drug Contraindication: Treatment Not Indicated
[2024-01-17 16:19] LABS: Glucose, Whole Blood 68 mg/dL (60-115)
[2024-01-17] MEDS: Dextrose 5 % and Lactated Ring 1,000 ML 100 ML IVCONT (16:51)
[2024-01-17 21:01] LABS: Glucose, Whole Blood 108 mg/dL (60-115)
[2024-01-18] VITALS (8 sets, daily range): BP systolic 110–164; BP diastolic 56–74; PULSE 63–73; RESP 16–18; TEMP 36–36.7; O2SAT 90–96
[2024-01-18] MEDS: Heparin Sodium,Porcine 5,000 UNIT/ML VIAL 5000 UNIT SUBCUT ×4 (00:05→23:51)
[2024-01-18] MEDS: Dextrose 5 % and Lactated Ring 1,000 ML 100 ML IVCONT ×3 (02:54→22:07)
[2024-01-18] MEDS: Levothyroxine Sodium 25 MCG TABLET PO (05:15)
[2024-01-18] MEDS: Acetaminophen 1,000 MG/100 ML PIGGYBACK 400 MG IV ×4 (05:15→23:52)
[2024-01-18 05:40] LABS: Glucose, Whole Blood 104 mg/dL (60-115)
[2024-01-18 07:29] LABS: Glucose, Whole Blood 141 mg/dL (60-115)
[2024-01-18] MEDS: oxyCODONE HCl Immed Release 5 MG TABLET 10 MG PO ×2 (08:06→14:36)
--- NOTE | 2024-01-18 08:51 | P.PNGS_ITS ---
Subjective Subjective Date of Service: 01/18/24 Interval history: She feels improved. 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 She denies flatus or BM. She denies nausea. Physical Exam 2 Vital Signs: Vital Signs: Last Vital Signs Temp 97.1 F 01/18/24 07:16 Pulse 71 01/18/24 07:16 Resp 16 01/18/24 07:16 BP 142/65 H 01/18/24 07:16 Pulse Ox 92 01/18/24 07:16 O2 Del Method Room Air 01/18/24 07:16 O2 Flow Rate 2 01/16/24 07:43 BMI result Body Mass Index 26.2 Const: General: comfortable, no acute distress and alert O rientation/consciousness: patient oriented x3 Resp: Effort & Inspection: normal respiratory effort GI: Inspection: No distended and Yes incision (clean) Palpation (GI): Soft to palpation, Tenderness to palpation present (GI) (mild incisional) and no guarding Percussion: Yes normal to percussion Skin: General skin exam: no rashes or lesions noted Neuro: General: patient oriented x3 and moves all extremities Objective Data Active Medications Glucose (Glucose Gel 15 Gm Gel..Gram.) 15 gm PO Q15M PRN; Protocol PRN Reason: per Hypoglycemia Standing Ord. Heparin Sodium (Porcine) (Heparin Sodium,Porcine 5,000 Unit/Ml Vial) 5,000 unit SUBCUT Q8H [facility] Last Admin: 01/18/24 07:53 Dose: 5,000 unit Documented By: BJORN Hydromorphone HCl (Hydromorphone Hcl 1 Mg/Ml Syringe) 0.5 mg IVPUSH Q3H PRN; Protocol PRN Reason: severe pain Dextrose (D10) 250 mls @ 750 mls/hr IV Q15M PRN; Protocol PRN Reason: per Hypoglycemia Standing Ord. Last Infusion: 01/17/24 12:10 Dose: Infused Documented By: PURNIMA Acetaminophen (Ofirmev) 1,000 mg in 100 mls @ 400 mls/hr IV Q6H [facility] Last Infusion: 01/18/24 05:37 Dose: Infused Documented By: ARCHANA Dextrose/Lactated Ringer's (D5lr) 1,000 mls @ 100 mls/hr IVCONT .Q10H [facility] Last Admin: 01/18/24 02:54 Dose: 100 mls/hr Documented By: ACRHANA Insulin Human Lispro (Insulin Lispro 100 Unit/Ml 3 Ml Vial) 0 unit SUBCUT QIDACHS [facility]; Protocol Last Admin: 01/18/24 07:49 Dose: Not Given Documented By: BJORN Non-Admin Reason: No Insulin Coverage Levothyroxine Sodium (Levothyroxine Sodium 25 Mcg Tablet) 25 mcg PO DAILY@0600 [facility] Last Admin: 01/18/24 05:15 Dose: 25 mcg Documented By: ARCHANA Melatonin (Melatonin 3 Mg Tablet) 6 mg PO BEDTIME PRN PRN Reason: Insomnia Naloxone HCl (Naloxone Hcl 0.4 Mg/Ml Vial) 0.2 mg IVPUSH Q2M PRN PRN Reason: Excessive sedation or RR < 8 Ondansetron HCl (Ondansetron Hcl 4 Mg/2 Ml Vial) 4 mg IVPUSH Q8H PRN PRN Reason: Nausea and Vomiting Oxycodone HCl (Oxycodone Hcl Immed Release 5 Mg Tablet) 10 mg PO Q4H PRN PRN Reason: Pain, Moderate(Pain Scale 4-6) Last Admin: 01/18/24 08:06 Dose: 10 mg Documented By: BJORN Sodium Chloride (0.9 % Sodium Chloride Flush 3 Ml Syringe) 3 ml IVFLUSH QSHIFT [facility] Last Admin: 01/18/24 07:53 Dose: Not Given Documented By: BJORN Non-Admin Reason: IV Running Labs 01/16/24 06:00 01/16/24 06:00 Labs: Laboratory Results - last 24 hr 01/15/24 01/17/24 01/17/24 13:46 11:18 16:08 POC Glucose 104 69 68 01/17/24 01/18/24 20:21 07:18 POC Glucose 108 141 H Microbiology Microbiology Results: Microbiology 01/15/24 Unknown Urine Culture - Final Urine clean catch - Clean Catch Midstream No growth. Procedures Date of Service Date of Service: 01/18/24 Progress Note: A&P Assessment and plan (1) Status post laparotomy with lysis of adhesions: Status: Acute (2) Small bowel obstruction: Status: Acute Plan POD # 3 s/p exploratory laparotomy, adhesion lysis, enterolysis, partial omentectomy, appendectomy for SBO secondary to adhesions. Also found to have omental caking at that time. Doing well post op, pain improved and well controlled. Will dc GROCERY SACKER. Transition to PRN IV and oral analgesics. Continue sips of liquids for now. Encouraged OOB/ambulation and increasing activity. Advance diet once evidence of GI function. Await pathology. Patient comfortable with plan. Time Spent With Patient Time: Total time managing care of this patient today ____ minutes. Quality Stroke Does the patient have a stroke diagnosis?: No VTE Prior VTE?: No VTE Risk Level:: Surgical - low VTE Device Contraindication: N/A - Device Ordered VTE Drug Contraindication: Treatment Not Indicated
[2024-01-18] MEDS: HYDROmorphone HCl 1 MG/ML SYRINGE 0.5 MG IVPUSH (11:05)
[2024-01-18 11:36] LABS: Glucose, Whole Blood 151 mg/dL (60-115)
[2024-01-18 16:15] LABS: Glucose, Whole Blood 147 mg/dL (60-115)
[2024-01-18 20:00] LABS: Glucose, Whole Blood 155 mg/dL (60-115)
[2024-01-18] MEDS: Insulin Lispro 100 UNIT/ML 3 ML VIAL SUBCUT (20:20)
[2024-01-18] MEDS: Simethicone 80 MG TAB.CHEW PO (22:33)
[2024-01-19] MEDS: HYDROmorphone HCl 0.5 MG/0.5 ML SYRINGE IVPUSH ×2 (00:11→07:28)
[2024-01-19 03:45] VITALS: BP 139/65; PULSE 71; RESP 18; TEMP 36.7; O2SAT 93
[2024-01-19] MEDS: ondansetron HCL 4 MG/2 ML VIAL IVPUSH ×2 (03:58→15:49)
[2024-01-19] MEDS: Levothyroxine Sodium 25 MCG TABLET PO (05:53)
[2024-01-19] MEDS: Acetaminophen 1,000 MG/100 ML PIGGYBACK 400 MG IV ×3 (05:53→17:12)
[2024-01-19 07:20] VITALS: BP 155/70; PULSE 72; RESP 16; TEMP 36; O2SAT 94
[2024-01-19] MEDS: Heparin Sodium,Porcine 5,000 UNIT/ML VIAL 5000 UNIT SUBCUT ×2 (07:23→15:39)
[2024-01-19 07:27] LABS: Glucose, Whole Blood 134 mg/dL (60-115)
[2024-01-19] MEDS: Simethicone 80 MG TAB.CHEW PO (07:28)
--- NOTE | 2024-01-19 08:16 | P.PNGS_ITS ---
Subjective Subjective Date of Service: 01/19/24 <Paula Mueller PA-C - Last Filed: 01/19/24 08:31> 01/19/24 <Enrrique Worthy MD - Last Filed: 01/19/24 09:05> Interval history: Nausea, vomiting this morning. No flatus. Feels bloated. <Paula Mueller PA-C - Last Filed: 01/19/24 08:31> Physical Exam 2 Vital Signs: Vital Signs: Last Vital Signs Temp 96.8 F 01/19/24 07:20 Pulse 72 01/19/24 07:20 Resp 16 01/19/24 07:20 BP 155/70 H 01/19/24 07:20 Pulse Ox 94 01/19/24 07:20 O2 Del Method Room Air 01/19/24 07:20 O2 Flow Rate 2 01/16/24 07:43 BMI result Body Mass Index 26.2 <MARLYN Patel Last Filed: 01/19/24 08:31> Const: General: no acute distress and alert <Paula Mueller PA-C - Last Filed: 01/19/24 08:31> Orientation/consciousness: patient oriented x3 <MARLYN Patel Last Filed: 01/19/24 08:31> Resp: Effort & Inspection: normal respiratory effort <MARLYN Patel Last Filed: 01/19/24 08:31> GI: Inspection: Yes distended and Yes incision (clean) <MARLYN Patel Last Filed: 01/19/24 08:31> Palpation (GI): Soft to palpation, Tenderness to palpation present (GI) (mild diffuse ) and no guarding <MARLYN Patel Last Filed: 01/19/24 08:31> Percussion: Yes tympanic to percussion <MARLYN Patel Last Filed: 01/19/24 08:31> Skin: General skin exam: no rashes or lesions noted <MARLYN Patel Last Filed: 01/19/24 08:31> Neuro: General: patient oriented x3 and moves all extremities <Paula Mueller PA-C - Last Filed: 01/19/24 08:31> Objective Data Active Medications Glucose (Glucose Gel 15 Gm Gel..Gram.) 15 gm PO Q15M PRN; Protocol PRN Reason: per Hypoglycemia Standing Ord. Heparin Sodium (Porcine) (Heparin Sodium,Porcine 5,000 Unit/Ml Vial) 5,000 unit SUBCUT Q8H [facility] Last Admin: 01/19/24 07:23 Dose: 5,000 unit Documented By: ILSA Hydromorphone HCl (Hydromorphone Hcl 0.5 Mg/0.5 Ml Syringe) 0.5 mg IVPUSH Q3H PRN; Protocol PRN Reason: severe pain Last Admin: 01/19/24 07:28 Dose: 0.5 mg Documented By: ILSA Dextrose (D10) 250 mls @ 750 mls/hr IV Q15M PRN; Protocol PRN Reason: per Hypoglycemia Standing Ord. Last Infusion: 01/17/24 12:10 Dose: Infused Documented By: PURNIMA Acetaminophen (Ofirmev) 1,000 mg in 100 mls @ 400 mls/hr IV Q6H [facility] Last Infusion: 01/19/24 06:28 Dose: Infused Documented By: MARQUEZ Dextrose/Lactated Ringer's (D5lr) 1,000 mls @ 100 mls/hr IVCONT .Q10H [facility] Last Admin: 01/18/24 22:07 Dose: 100 mls/hr Documented By: MARQUEZ Insulin Human Lispro (Insulin Lispro 100 Unit/Ml 3 Ml Vial) 0 unit SUBCUT QIDACHS [facility]; Protocol Last Admin: 01/19/24 07:25 Dose: Not Given Documented By: ILSA Non-Admin Reason: No Insulin Coverage Ketorolac Tromethamine (Ketorolac Tromethamine 15 Mg/Ml Vial) 15 mg IVPUSH Q6H PRN PRN Reason: Pain, Mild (Pain Scale 1-3) Levothyroxine Sodium (Levothyroxine Sodium 25 Mcg Tablet) 25 mcg PO DAILY@0600 [facility] Last Admin: 01/19/24 05:53 Dose: 25 mcg Documented By: MARQUEZ Melatonin (Melatonin 3 Mg Tablet) 6 mg PO BEDTIME PRN PRN Reason: Insomnia Naloxone HCl (Naloxone Hcl 0.4 Mg/Ml Vial) 0.2 mg IVPUSH Q2M PRN PRN Reason: Excessive sedation or RR < 8 Ondansetron HCl (Ondansetron Hcl 4 Mg/2 Ml Vial) 4 mg IVPUSH Q8H PRN PRN Reason: Nausea and Vomiting Last Admin: 01/19/24 03:58 Dose: 4 mg Documented By: ODRISRadames Oxycodone HCl (Oxycodone Hcl Immed Release 5 Mg Tablet) 10 mg PO Q4H PRN PRN Reason: Pain, Moderate(Pain Scale 4-6) Last Admin: 01/18/24 14:36 Dose: 10 mg Documented By: BJORN Simethicone (Simethicone 80 Mg Tab.Chew) 80 mg PO QIDWMHS PRN PRN Reason: Gas Last Admin: 01/19/24 07:28 Dose: 80 mg Documented By: ILSA Sodium Chloride (0.9 % Sodium Chloride Flush 3 Ml Syringe) 3 ml IVFLUSH [facility] Last Admin: 01/19/24 07:17 Dose: Not Given Documented By: ILSA Non-Admin Reason: IV Running <Paula Mueller PA-C - Last Filed: 01/19/24 08:31> Labs CBC & Chem 7: 01/16/24 06:00 01/16/24 06:00 <Paula Mueller PA-C - Last Filed: 01/19/24 08:31> Labs: Laboratory Results - last 24 hr 01/18/24 01/18/24 01/18/24 11:19 16:12 19:51 POC Glucose 151 H 147 H 155 H 01/19/24 07:23 POC Glucose 134 H <Paula Mueller PA-C - Last Filed: 01/19/24 08:31> Procedures Date of Service Date of Service: 01/19/24 <Paula Mueller PA-C - Last Filed: 01/19/24 08:31> 01/19/24 <Enrrique Worthy MD - Last Filed: 01/19/24 09:05> Progress Note: A&P Assessment and plan (1) Status post laparotomy with lysis of adhesions: Status: Acute <Paula Mueller PA-C - Last Filed: 01/19/24 08:31> Assessment and Plan: POD # 4 s/p exploratory laparotomy, adhesion lysis, enterolysis, partial omentectomy, appendectomy for SBO secondary to adhesions. Also found to have omental caking at that time. Vomited this morning, abd slightly distended. Delayed return of GI function likely due to procedure, narcotics, prior obstruction. Encouraged increasing activity and ambulation, avoid narcotics. Will add ketorolac. Nutrition consult for possible PPN. Patient comfortable with plan. <Paula Mueller PA-C - Last Filed: 01/19/24 08:31> Time Spent With Patient Time: Total time managing care of this patient today ____ minutes. <Paula Mueller PA-C - Last Filed: 01/19/24 08:31> Quality Stroke Does the patient have a stroke diagnosis?: No <MARLYN Patel Last Filed: 01/19/24 08:31> VTE Prior VTE?: No <Paula Mueller PA-C - Last Filed: 01/19/24 08:31> VTE Risk Level:: Surgical - low <MARLYN Patel Last Filed: 01/19/24 08:31> VTE Device Contraindication: N/A - Device Ordered <MARLYN Patel Last Filed: 01/19/24 08:31> VTE Drug Contraindication: Treatment Not Indicated <MARLYN Patel Last Filed: 01/19/24 08:31>
[2024-01-19] MEDS: Ketorolac Tromethamine 15 MG/ML VIAL IVPUSH ×3 (09:40→21:44)
[2024-01-19] MEDS: Dextrose 5 % and Lactated Ring 1,000 ML 100 ML IVCONT (09:44)
[2024-01-19 10:18] VITALS: BMI 26.2
--- NOTE | 2024-01-19 10:21 | MHC.CLN ---
CONSULT FOR PPN PT REMAINS WITH N/V AND BLOATING LABS PENDING DISCUSSED WITH PHARMACY RECOMMEND PPN AT 40ML/HR TO PROVIDE 490KCALS, 96G DEXTROSE, 41G PROTEIN REPLETE LYTES NEEDED SEE ALSO FULL CLINICAL NUTRITION ASSESSMENT
[2024-01-19 10:22] LABS: Anion Gap 11 (12-20); Blood Urea Nitrogen 6 mg/dL (9-16); Carbon Dioxide 29 mmol/L (22-29); Chloride 103 mmol/L (96-108); Creatinine Clr Calc Pharmacy 72.2; Estimated Glomerular Filt Rate > 60; Glucose Fasting 160 mg/dL (60-99); Magnesium 1.6 mg/dL (1.6-2.6); Phosphorus 3.4 mg/dL (2.7-4.5); Potassium 3.5 mmol/L (3.3-5.1); Sodium 139 mmol/L (135-145)
[2024-01-19 11:32] LABS: Glucose, Whole Blood 158 mg/dL (60-115)
[2024-01-19] MEDS: Insulin Lispro 100 UNIT/ML 3 ML VIAL SUBCUT ×2 (11:44→17:12)
[2024-01-19 12:00] VITALS: BP 146/67; PULSE 71; RESP 18; TEMP 36; O2SAT 95
[2024-01-19 15:05] VITALS: BP 170/72; PULSE 71; RESP 16; TEMP 35.9; O2SAT 96
[2024-01-19 16:28] LABS: Glucose, Whole Blood 153 mg/dL (60-115)
[2024-01-19 17:18] VITALS: BP 152/63
[2024-01-19 19:25] VITALS: BP 141/73; PULSE 81; RESP 20; TEMP 36.5; O2SAT 94
[2024-01-19 19:48] LABS: Glucose, Whole Blood 128 mg/dL (60-115)
[2024-01-19] MEDS: Metoclopramide HCl 10 MG/2 ML VIAL 5 MG IVPUSH (19:50)
[2024-01-19] MEDS: 0.9 % Sodium Chloride Flush 3 ML SYRINGE IVFLUSH (19:51)
[2024-01-19] MEDS: Parenteral Nutrition 960 ML 40 ML IV (20:19)
[2024-01-20] MEDS: ondansetron HCL 4 MG/2 ML VIAL IVPUSH ×2 (00:06→08:08)
[2024-01-20] MEDS: Acetaminophen 1,000 MG/100 ML PIGGYBACK 400 MG IV ×4 (00:06→17:32)
[2024-01-20] MEDS: Heparin Sodium,Porcine 5,000 UNIT/ML VIAL 5000 UNIT SUBCUT ×4 (00:08→23:52)
[2024-01-20 03:35] VITALS: BP 147/65; PULSE 75; RESP 16; TEMP 36.5; O2SAT 93
[2024-01-20] MEDS: Metoclopramide HCl 10 MG/2 ML VIAL 5 MG IVPUSH (04:15)
[2024-01-20 07:42] VITALS: BP 150/70; PULSE 70; RESP 16; TEMP 36.2; O2SAT 94
[2024-01-20 07:42] LABS: Glucose, Whole Blood 153 mg/dL (60-115)
[2024-01-20] MEDS: Insulin Lispro 100 UNIT/ML 3 ML VIAL SUBCUT (08:07)
--- NOTE | 2024-01-20 08:12 | PM.PNGS ---
Subjective Subjective Date of Service: 01/20/24 <Paula Mueller PA-C - Last Filed: 01/20/24 08:16> 01/20/24 <Lj Collins MD - Last Filed: 01/20/24 09:54> Interval history: Passed flatus yesterday afternoon and initially felt improved but had multiple episodes of vomiting overnight. Reports feeling bloated this am, no further flatus. <Paula Mueller PA-C - Last Filed: 01/20/24 08:16> Physical Exam Vital Signs: Vital Signs: Last Vital Signs Temp 97.1 F 01/20/24 07:42 Pulse 70 01/20/24 07:42 Resp 16 01/20/24 07:42 BP 150/70 H 01/20/24 07:42 Pulse Ox 94 01/20/24 07:42 O2 Del Method Room Air 01/20/24 07:42 O2 Flow Rate 2 01/16/24 07:43 BMI result Body Mass Index 26.2 <Paula Mueller PA-C - Last Filed: 01/20/24 08:16> Const: Other: uncomfortable appearing <Paula Mueller PA-C - Last Filed: 01/20/24 08:16> General: no acute distress and alert <MARLYN Patel Last Filed: 01/20/24 08:16> Orientation/consciousness: patient oriented x3 <Paula Mueller PA-C - Last Filed: 01/20/24 08:16> Resp: Effort & Inspection: normal respiratory effort <Paula Mueller PA-C - Last Filed: 01/20/24 08:16> GI: Inspection: Yes distended and Yes incision (clean) <MARLYN Patel Last Filed: 01/20/24 08:16> Palpation (GI): Soft to palpation and Tenderness to palpation present (GI) (mild incisional ) <MARLYN Patel Last Filed: 01/20/24 08:16> Skin: General skin exam: no rashes or lesions noted <MARLYN Patel Last Filed: 01/20/24 08:16> Neuro: General: patient oriented x3 and moves all extremities <Paula Mueller PA-C - Last Filed: 01/20/24 08:16> Objective Data Active Medications Glucose (Glucose Gel 15 Gm Gel..Gram.) 15 gm PO Q15M PRN; Protocol PRN Reason: per Hypoglycemia Standing Ord. Heparin Sodium (Porcine) (Heparin Sodium,Porcine 5,000 Unit/Ml Vial) 5,000 unit SUBCUT Q8H [facility] Last Admin: 01/20/24 00:08 Dose: 5,000 unit Documented By: LULU Hydromorphone HCl (Hydromorphone Hcl 0.5 Mg/0.5 Ml Syringe) 0.5 mg IVPUSH Q3H PRN; Protocol PRN Reason: severe pain Last Admin: 01/19/24 07:28 Dose: 0.5 mg Documented By: ILSA Dextrose (D10) 250 mls @ 750 mls/hr IV Q15M PRN; Protocol PRN Reason: per Hypoglycemia Standing Ord. Last Infusion: 01/17/24 12:10 Dose: Infused Documented By: PURNIMA Acetaminophen ([facility]) 1,000 mg in 100 mls @ 400 mls/hr IV Q6H [facility] Last Infusion: 01/20/24 06:29 Dose: Infused Documented By: LULU Nutrition (Parenteral) (Parenteral Nutrition) 960 mls @ 40 mls/hr IV .Q24H [facility]; Protocol Stop: 01/20/24 20:59 Last Admin: 01/19/24 20:19 Dose: 40 mls/hr Documented By: LULU Insulin Human Lispro (Insulin Lispro 100 Unit/Ml 3 Ml Vial) 0 unit SUBCUT QIDACHS [facility]; Protocol Last Admin: 01/19/24 19:53 Dose: Not Given Documented By: LULU Non-Admin Reason: No Insulin Coverage Ketorolac Tromethamine (Ketorolac Tromethamine 15 Mg/Ml Vial) 15 mg IVPUSH Q6H PRN PRN Reason: Pain, Mild (Pain Scale 1-3) Last Admin: 01/19/24 21:44 Dose: 15 mg Documented By: LULU Levothyroxine Sodium (Levothyroxine Sodium 25 Mcg Tablet) 25 mcg PO DAILY@0600 [facility] Last Admin: 01/20/24 06:14 Dose: Not Given Documented By: LULU Non-Admin Reason: Patient Refused Melatonin (Melatonin 3 Mg Tablet) 6 mg PO BEDTIME PRN PRN Reason: Insomnia Naloxone HCl (Naloxone Hcl 0.4 Mg/Ml Vial) 0.2 mg IVPUSH Q2M PRN PRN Reason: Excessive sedation or RR < 8 Ondansetron HCl (Ondansetron Hcl 4 Mg/2 Ml Vial) 4 mg IVPUSH Q8H PRN PRN Reason: Nausea and Vomiting Last Admin: 01/20/24 00:06 Dose: 4 mg Documented By: LULU Oxycodone HCl (Oxycodone Hcl Immed Release 5 Mg Tablet) 10 mg PO Q4H PRN PRN Reason: Pain, Moderate(Pain Scale 4-6) Last Admin: 01/18/24 14:36 Dose: 10 mg Documented By: BJORN Pharmacy Consult (Consult Rx Parenteral Nutrition Ordering) 1 each MISCELLANE DAILY PRN PRN Reason: Consult order Simethicone (Simethicone 80 Mg Tab.Chew) 80 mg PO QIDWMHS PRN PRN Reason: Gas Last Admin: 01/19/24 07:28 Dose: 80 mg Documented By: ILSA Sodium Chloride (0.9 % Sodium Chloride Flush 3 Ml Syringe) 3 ml IVFLUSH [facility] Last Admin: 01/19/24 19:51 Dose: 3 ml Documented By: LULU <Paula Mueller PA-C - Last Filed: 01/20/24 08:16> Labs CBC & Chem 7: 01/16/24 06:00 01/19/24 09:49 <Paula Mueller PA-C - Last Filed: 01/20/24 08:16> Labs: Laboratory Results - last 24 hr 01/19/24 01/19/24 01/19/24 09:49 11:20 16:24 Anion Gap 11 L Estim Creat Clear Calc 72.2 Estimated GFR > 60 POC Glucose 158 H 153 H Fasting Glucose 160 H Calcium 9.0 D Phosphorus 3.4 Magnesium 1.6 01/19/24 01/20/24 19:45 07:35 Anion Gap Estim Creat Clear Calc Estimated GFR POC Glucose 128 H 153 H Fasting Glucose Calcium Phosphorus Magnesium <Paula Mueller PA-C - Last Filed: 01/20/24 08:16> Procedures Date of Service Date of Service: 01/20/24 <Paula Mueller PA-C - Last Filed: 01/20/24 08:16> 01/20/24 <Lj Collins MD - Last Filed: 01/20/24 09:54> Progress Note: A&P Assessment and plan (1) Status post laparotomy with lysis of adhesions: Status: Acute <Paula Mueller PA-C - Last Filed: 01/20/24 08:16> Assessment and Plan: Had vomiting overnight However feels better this morning Abdomen is soft and benign She had been passing flatus yesterday but she says this seemed to have slowed down today She looks well otherwise Okay to hold off on NG tube placement for now as she says she feels much better Encouraged ambulation NPO Seen and examined independently <Lj Collins MD - Last Filed: 01/20/24 09:54> (2) Small bowel obstruction: Status: Acute <Paula Mueller PA-C - Last Filed: 01/20/24 08:16> Assessment and Plan: Delayed return of GI function. NG insertion was attempted multiple times by myself and RN and was unfortunately unsuccessful. Will hold off for now, if vomits again discussed we will need to place NGT. PRN antiemetics, PPN and increase activity, ambulation in the meantime to promote GI function. Final pathology still pending. <Paula Mueller PA-C - Last Filed: 01/20/24 08:16> Time Spent With Patient Time: Total time managing care of this patient today ____ minutes. <Paula Mueller PA-C - Last Filed: 01/20/24 08:16> Quality Stroke Does the patient have a stroke diagnosis?: No <Paula Mueller PA-C - Last Filed: 01/20/24 08:16> VTE Prior VTE?: No <MARLYN Patel Last Filed: 01/20/24 08:16> VTE Risk Level:: Surgical - low <MARLYN Patel Last Filed: 01/20/24 08:16> VTE Device Contraindication: N/A - Device Ordered <Paula Mueller PA-C - Last Filed: 01/20/24 08:16> VTE Drug Contraindication: Treatment Not Indicated <Paula Mueller PA-C - Last Filed: 01/20/24 08:16>
--- NOTE | 2024-01-20 10:46 | MHC.CLN ---
F/U PPN STARTED 01/19/24. VOMITING OVERNIGHT. NPO WITH PPN. REVIEWED LABS. COMMUNICATED WITH PHARMACY. RECOMMEND ADVANCE PPN TO PPN AT 60 ML/HR TO PROVIDE 734 KCALS (14.7 G/KG CMW), 144 G DEXTROSE, 61 G PROTEIN (1.2 G/KG CMW) REPLETE LYTES NEEDED. CHECK TRIGLYCERIDES. WHEN ABLE, ADVANCE TO MAX GOAL RATE PPN AT 60 ML PER HOUR PLUS 45 G LIPIDS. PROVIDES 1184 TOTAL KCALS (23.7 KCALS/KG CMW), 144 G DEXTROSE, 61 G PROTEIN (1.2 G/KG CMW). FOLLOW FOR PPN TOLERANCE AND DIET ADVANCEMENT.
[2024-01-20 11:01] LABS: Glucose, Whole Blood 136 mg/dL (60-115)
[2024-01-20 11:24] LABS: Alanine Aminotransferase 50 U/L (0-31); Albumin Level 3.1 g/dL (3.5-5.0); Alkaline Phosphatase 90 U/L (39-117); Anion Gap 15 (12-20); Aspartate Amino Transferase 76 U/L (5-31); Bilirubin Total 0.5 mg/dL (0.0-1.0); Blood Urea Nitrogen 13 mg/dL (9-16); Calcium 9.1 mg/dL (8.4-10.2); Carbon Dioxide 26 mmol/L (22-29); Chloride 103 mmol/L (96-108); Creatinine Clr Calc Pharmacy 58.5; Estimated Glomerular Filt Rate > 60; Glucose Random 142 mg/dL (60-115); Magnesium 1.9 mg/dL (1.6-2.6); Phosphorus 3.8 mg/dL (2.7-4.5); Potassium 3.5 mmol/L (3.3-5.1); Sodium 140 mmol/L (135-145); Total Protein 5.8 g/dL (6.5-8.0)
--- NOTE | 2024-01-20 11:29 | MHC.CM.PN ---
EMR reviewed. Patient not medically cleared for dc. CM will continue to follow.
[2024-01-20] MEDS: Ketorolac Tromethamine 15 MG/ML VIAL IVPUSH (14:41)
[2024-01-20 15:25] VITALS: BP 146/68; PULSE 77; RESP 20; TEMP 36.7; O2SAT 95
[2024-01-20 16:11] LABS: Glucose, Whole Blood 143 mg/dL (60-115)
[2024-01-20 19:22] VITALS: BP 149/69; PULSE 77; RESP 20; TEMP 37.2; O2SAT 95
[2024-01-20 19:28] LABS: Glucose, Whole Blood 130 mg/dL (60-115)
[2024-01-20] MEDS: Parenteral Nutrition 1,440 ML 60 ML IV (20:47)
[2024-01-21 03:37] VITALS: BP 145/65; PULSE 75; RESP 16; TEMP 36.5; O2SAT 96
[2024-01-21] MEDS: Levothyroxine Sodium 25 MCG TABLET PO (05:51)
[2024-01-21 07:39] LABS: Glucose, Whole Blood 159 mg/dL (60-115)
[2024-01-21 07:41] VITALS: BP 153/69; PULSE 79; RESP 16; TEMP 36.8; O2SAT 96
[2024-01-21] MEDS: Heparin Sodium,Porcine 5,000 UNIT/ML VIAL 5000 UNIT SUBCUT ×2 (07:52→16:48)
[2024-01-21] MEDS: Insulin Lispro 100 UNIT/ML 3 ML VIAL SUBCUT ×2 (07:52→20:41)
[2024-01-21] MEDS: 0.9 % Sodium Chloride Flush 3 ML SYRINGE IVFLUSH ×2 (07:53→16:51)
[2024-01-21] MEDS: HYDROmorphone HCl 0.5 MG/0.5 ML SYRINGE IVPUSH (07:53)
[2024-01-21 07:58] LABS: Alanine Aminotransferase 109 U/L (0-31); Albumin Level 2.8 g/dL (3.5-5.0); Alkaline Phosphatase 104 U/L (39-117); Anion Gap 11 (12-20); Aspartate Amino Transferase 150 U/L (5-31); Bilirubin Total 0.4 mg/dL (0.0-1.0); Blood Urea Nitrogen 10 mg/dL (9-16); Calcium 8.4 mg/dL (8.4-10.2); Carbon Dioxide 26 mmol/L (22-29); Chloride 108 mmol/L (96-108); Creatinine Clr Calc Pharmacy 77.3; Estimated Glomerular Filt Rate > 60; Glucose Random 154 mg/dL (60-115); Magnesium 1.9 mg/dL (1.6-2.6); Potassium 3.4 mmol/L (3.3-5.1); Sodium 142 mmol/L (135-145); Total Protein 5.3 g/dL (6.5-8.0); Triglycerides 166 mg/dL (<150)
[2024-01-21] MEDS: ondansetron HCL 4 MG/2 ML VIAL IVPUSH (08:01)
--- NOTE | 2024-01-21 09:53 | P.PNGS_ITS ---
Subjective Subjective Date of Service: 01/21/24 Interval history: Passed BM overnight. No vomiting >24h. Was OOB and ambulating halls yesterday. This morning reports soreness of upper abdomen. Physical Exam 2 Vital Signs: Vital Signs: Last Vital Signs Temp 98.2 F 01/21/24 07:41 Pulse 79 01/21/24 07:41 Resp 16 01/21/24 07:41 BP 153/69 H 01/21/24 07:41 Pulse Ox 96 01/21/24 07:41 O2 Del Method Room Air 01/21/24 07:41 O2 Flow Rate 2 01/16/24 07:43 BMI result Body Mass Index 26.2 Const: General: no acute distress and alert Orientation/consciousness: p atient oriented x3 Resp: Effort & Inspection: normal respiratory effort GI: Inspection: Yes distended and Yes incision (clean) Palpation (GI): Soft to palpation, Tenderness to palpation present (GI) (mild upper abdomen) and no guarding Percussion: Yes tympanic to percussion Skin: General skin exam: no rashes or lesions noted Neuro: General: patient oriented x3 and moves all extremities Objective Data Active Medications Glucose (Glucose Gel 15 Gm Gel..Gram.) 15 gm PO Q15M PRN; Protocol PRN Reason: per Hypoglycemia Standing Ord. Heparin Sodium (Porcine) (Heparin Sodium,Porcine 5,000 Unit/Ml Vial) 5,000 unit SUBCUT Q8H [facility] Last Admin: 01/21/24 07:52 Dose: 5,000 unit Documented By: CARLEEN Hydromorphone HCl (Hydromorphone Hcl 0.5 Mg/0.5 Ml Syringe) 0.5 mg IVPUSH Q3H PRN; Protocol PRN Reason: severe pain Last Admin: 01/21/24 07:53 Dose: 0.5 mg Documented By: CARLEEN Dextrose (D10) 250 mls @ 750 mls/hr IV Q15M PRN; Protocol PRN Reason: per Hypoglycemia Standing Ord. Last Infusion: 01/17/24 12:10 Dose: Infused Documented By: PURNIMA Nutrition (Parenteral) (Parenteral Nutrition) 1,440 mls @ 60 mls/hr IV .Q24H [facility]; Protocol Stop: 01/21/24 20:59 Last Admin: 01/20/24 20:47 Dose: 60 mls/hr Documented By: LULU Insulin Human Lispro (Insulin Lispro 100 Unit/Ml 3 Ml Vial) 0 unit SUBCUT QIDACHS [facility]; Protocol Last Admin: 01/21/24 07:52 Dose: 2 unit Documented By: CARLEEN Ketorolac Tromethamine (Ketorolac Tromethamine 15 Mg/Ml Vial) 15 mg IVPUSH Q6H PRN PRN Reason: Pain, Mild (Pain Scale 1-3) Last Admin: 01/20/24 14:41 Dose: 15 mg Documented By: CARLEEN Levothyroxine Sodium (Levothyroxine Sodium 25 Mcg Tablet) 25 mcg PO DAILY@0600 [facility] Last Admin: 01/21/24 05:51 Dose: 25 mcg Documented By: LULU Melatonin (Melatonin 3 Mg Tablet) 6 mg PO BEDTIME PRN PRN Reason: Insomnia Naloxone HCl (Naloxone Hcl 0.4 Mg/Ml Vial) 0.2 mg IVPUSH Q2M PRN PRN Reason: Excessive sedation or RR < 8 Ondansetron HCl (Ondansetron Hcl 4 Mg/2 Ml Vial) 4 mg IVPUSH Q8H PRN PRN Reason: Nausea and Vomiting Last Admin: 01/21/24 08:01 Dose: 4 mg Documented By: CARLEEN Oxycodone HCl (Oxycodone Hcl Immed Release 5 Mg Tablet) 10 mg PO Q4H PRN PRN Reason: Pain, Moderate(Pain Scale 4-6) Last Admin: 01/18/24 14:36 Dose: 10 mg Documented By: BJORN Pharmacy Consult (Consult Rx Parenteral Nutrition Ordering) 1 each MISCELLANE DAILY PRN PRN Reason: Consult order Simethicone (Simethicone 80 Mg Tab.Chew) 80 mg PO QIDWMHS PRN PRN Reason: Gas Last Admin: 01/19/24 07:28 Dose: 80 mg Documented By: ILSA Sodium Chloride (0.9 % Sodium Chloride Flush 3 Ml Syringe) 3 ml IVFLUSH [facility] Last Admin: 01/21/24 07:53 Dose: 3 ml Documented By: CARLEEN Labs 01/16/24 06:00 01/21/24 06:34 Labs: Laboratory Results - last 24 hr 01/20/24 01/20/24 01/20/24 10:58 11:03 11:03 Anion Gap 15 Estim Creat Clear Calc 58.5 Estimated GFR > 60 POC Glucose 136 H Random Glucose 142 H Calcium 9.1 Phosphorus 3.8 Magnesium 1.9 Total Bilirubin 0.5 AST 76 H ALT 50 H Alkaline Phosphatase 90 Total Protein 5.8 L Albumin 3.1 L Cancelled Triglycerides 01/20/24 01/20/24 01/21/24 16:08 19:24 06:34 Anion Gap 11 L Estim Creat Clear Calc 77.3 Estimated GFR > 60 POC Glucose 143 H 130 H Random Glucose 154 H Calcium 8.4 D Phosphorus 3.0 Magnesium 1.9 Total Bilirubin 0.4 AST 150 H ALT 109 H Alkaline Phosphatase 104 Total Protein 5.3 L Albumin 2.8 L Triglycerides 166 H 01/21/24 07:34 Anion Gap Estim Creat Clear Calc Estimated GFR POC Glucose 159 H Random Glucose Calcium Phosphorus Magnesium Total Bilirubin AST ALT Alkaline Phosphatase Total Protein Albumin Triglycerides Procedures Date of Service Date of Service: 01/21/24 Progress Note: A&P Assessment and plan (1) Status post laparotomy with lysis of adhesions: Status: Acute (2) Small bowel obstruction: Status: Acute Plan Now moving her bowels but reports increasing abdominal pain this morning. Her abdomen appears less distended. Abd pain perhaps due to incisional pain and increasing activity yesterday. She has been refusing all analgesics, recommended one time dose of narcotic to help with pain. Cont OOB/ambulation, incentive. Cont PPN for now until PO intake increases. Sips of liquids. Final path pending. Time Spent With Patient Time: Total time managing care of this patient today ____ minutes. Quality Stroke Does the patient have a stroke diagnosis?: No VTE Prior VTE?: No VTE Risk Level:: Surgical - low VTE Device Contraindication: N/A - Device Ordered VTE Drug Contraindication: Treatment Not Indicated
--- NOTE | 2024-01-21 10:09 | MHC.CLN ---
F/U REVIEWED LABS COMMUNICATED WITH PHARMACY RECOMMEND PPN AT 60 ML/HR WITH 45G LIPIDS TO PROVIDE 1184 TOTAL KCALS (24KCALS/KG CMW), 144 G DEXTROSE, 61 G PROTEIN (1.2 G/KG CMW) REPLETE LYTES NEEDED FOLLOW FOR PPN TOLERANCE AND DIET ADVANCEMENT
[2024-01-21 11:27] LABS: Glucose, Whole Blood 139 mg/dL (60-115)
[2024-01-21 16:00] VITALS: BP 147/78; PULSE 73; RESP 20; TEMP 37.2; O2SAT 95
[2024-01-21 16:34] LABS: Glucose, Whole Blood 147 mg/dL (60-115)
[2024-01-21 19:03] VITALS: BP 153/70; PULSE 73; RESP 20; TEMP 36.6; O2SAT 93
[2024-01-21 19:45] LABS: Glucose, Whole Blood 159 mg/dL (60-115)
[2024-01-21] MEDS: Parenteral Nutrition 1,440 ML 60 ML IV (20:34)
[2024-01-22] MEDS: Heparin Sodium,Porcine 5,000 UNIT/ML VIAL 5000 UNIT SUBCUT ×2 (01:04→08:17)
[2024-01-22 03:44] VITALS: BP 136/64; PULSE 75; RESP 16; TEMP 36.6; O2SAT 94
[2024-01-22 06:26] LABS: Alanine Aminotransferase 136 U/L (0-31); Albumin Level 2.9 g/dL (3.5-5.0); Alkaline Phosphatase 157 U/L (39-117); Anion Gap 12 (12-20); Aspartate Amino Transferase 137 U/L (5-31); Bilirubin Total 0.3 mg/dL (0.0-1.0); Blood Urea Nitrogen 9 mg/dL (9-16); Calcium 8.4 mg/dL (8.4-10.2); Carbon Dioxide 24 mmol/L (22-29); Chloride 108 mmol/L (96-108); Creatinine Clr Calc Pharmacy 67.6; Estimated Glomerular Filt Rate > 60; Glucose Random 168 mg/dL (60-115); Magnesium 1.9 mg/dL (1.6-2.6); Phosphorus 2.9 mg/dL (2.7-4.5); Potassium 3.9 mmol/L (3.3-5.1); Sodium 140 mmol/L (135-145); Total Protein 5.5 g/dL (6.5-8.0)
[2024-01-22] MEDS: Levothyroxine Sodium 25 MCG TABLET PO (06:26)
[2024-01-22 07:07] VITALS: BP 149/87; PULSE 77; RESP 18; TEMP 36.6; O2SAT 92
[2024-01-22 07:14] LABS: Glucose, Whole Blood 176 mg/dL (60-115)
--- NOTE | 2024-01-22 08:09 | PM.PNGS ---
Subjective Subjective Date of Service: 01/22/24 Interval history: Now having good BMs. Feels improved. Tolerated clear liquids yesterday and feels hungry. Pain minimal and well controlled. Physical Exam Vital Signs: Vital Signs: Last Vital Signs Temp 97.9 F 01/22/24 07:07 Pulse 77 01/22/24 07:07 Resp 18 01/22/24 07:07 BP 149/87 H 01/22/24 07:07 Pulse Ox 92 01/22/24 07:07 O2 Del Method Room Air 01/22/24 07:07 O2 Flow Rate 2 01/16/24 07:43 BMI result Body Mass Index 26.2 Const: General: comfortable, no acute distress and alert Resp: Effort & Inspection: normal respiratory effort GI: Inspection: Yes distended (softly, improved) and Yes incision (clean) Palpation (GI): Soft to palpation, nontender and no guarding Skin: General skin exam: no rashes or lesions noted Objective Data Active Medications Glucose (Glucose Gel 15 Gm Gel..Gram.) 15 gm PO Q15M PRN; Protocol PRN Reason: per Hypoglycemia Standing Ord. Heparin Sodium (Porcine) (Heparin Sodium,Porcine 5,000 Unit/Ml Vial) 5,000 unit SUBCUT Q8H [facility] Last Admin: 01/22/24 01:04 Dose: 5,000 unit Documented By: TI Hydromorphone HCl (Hydromorphone Hcl 0.5 Mg/0.5 Ml Syringe) 0.5 mg IVPUSH Q3H PRN; Protocol PRN Reason: severe pain Last Admin: 01/21/24 07:53 Dose: 0.5 mg Documented By: CARLEEN Dextrose (D10) 250 mls @ 750 mls/hr IV Q15M PRN; Protocol PRN Reason: per Hypoglycemia Standing Ord. Last Infusion: 01/17/24 12:10 Dose: Infused Documented By: PURNIMA Nutrition (Parenteral) (Parenteral Nutrition) 1,440 mls @ 60 mls/hr IV .Q24H [facility]; Protocol Stop: 01/22/24 20:59 Last Admin: 01/21/24 20:34 Dose: 60 mls/hr Documented By: LULU Insulin Human Lispro (Insulin Lispro 100 Unit/Ml 3 Ml Vial) 0 unit SUBCUT QIDACHS [facility]; Protocol Last Admin: 01/21/24 20:41 Dose: 2 unit Documented By: LULU Ketorolac Tromethamine (Ketorolac Tromethamine 15 Mg/Ml Vial) 15 mg IVPUSH Q6H PRN PRN Reason: Pain, Mild (Pain Scale 1-3) Last Admin: 01/20/24 14:41 Dose: 15 mg Documented By: CARLEEN Levothyroxine Sodium (Levothyroxine Sodium 25 Mcg Tablet) 25 mcg PO DAILY@0600 [facility] Last Admin: 01/22/24 06:26 Dose: 25 mcg Documented By: TI Melatonin (Melatonin 3 Mg Tablet) 6 mg PO BEDTIME PRN PRN Reason: Insomnia Naloxone HCl (Naloxone Hcl 0.4 Mg/Ml Vial) 0.2 mg IVPUSH Q2M PRN PRN Reason: Excessive sedation or RR < 8 Ondansetron HCl (Ondansetron Hcl 4 Mg/2 Ml Vial) 4 mg IVPUSH Q8H PRN PRN Reason: Nausea and Vomiting Last Admin: 01/21/24 08:01 Dose: 4 mg Documented By: CARLEEN Oxycodone HCl (Oxycodone Hcl Immed Release 5 Mg Tablet) 10 mg PO Q4H PRN PRN Reason: Pain, Moderate(Pain Scale 4-6) Last Admin: 01/18/24 14:36 Dose: 10 mg Documented By: BJORN Pharmacy Consult (Consult Rx Parenteral Nutrition Ordering) 1 each MISCELLANE DAILY PRN PRN Reason: Consult order Simethicone (Simethicone 80 Mg Tab.Chew) 80 mg PO QIDWMHS PRN PRN Reason: Gas Last Admin: 01/19/24 07:28 Dose: 80 mg Documented By: ILSA Sodium Chloride (0.9 % Sodium Chloride Flush 3 Ml Syringe) 3 ml IVFLUSH [facility] Last Admin: 01/22/24 00:11 Dose: Not Given Documented By: TI Non-Admin Reason: IV Running Labs 01/16/24 06:00 01/22/24 05:49 Labs: Laboratory Results - last 24 hr 01/21/24 01/21/24 01/21/24 11:23 16:23 19:41 Hold Purple Top Anion Gap Estim Creat Clear Calc Estimated GFR POC Glucose 139 H 147 H 159 H Random Glucose Calcium Phosphorus Magnesium Total Bilirubin AST ALT Alkaline Phosphatase Total Protein Albumin 01/22/24 01/22/24 05:49 07:06 Hold Purple Top SEE NOTE Anion Gap 12 Estim Creat Clear Calc 67.6 Estimated GFR > 60 POC Glucose 176 H Random Glucose 168 H Calcium 8.4 Phosphorus 2.9 Magnesium 1.9 Total Bilirubin 0.3 AST 137 H ALT 136 H Alkaline Phosphatase 157 H Total Protein 5.5 L Albumin 2.9 L Procedures Date of Service Date of Service: 01/22/24 Progress Note: A&P Assessment and plan (1) Status post laparotomy with lysis of adhesions: Status: Acute (2) Small bowel obstruction: Status: Acute Plan Now with return of GI function, good BMs. Abd is very benign, clean incision. Will advance to solid diet. If tolerating and remains comfortable, stable for dc to home later today. Patient comfortable with plan. Final path pending. Endometrial thickening - has seen Dr. Gutierrez who referred her to [facility] gynonc. Has appt in February. Time Spent With Patient Time: Total time managing care of this patient today ____ minutes. Quality Stroke Does the patient have a stroke diagnosis?: No VTE Prior VTE?: No VTE Risk Level:: Surgical - low VTE Device Contraindication: N/A - Device Ordered VTE Drug Contraindication: Treatment Not Indicated
[2024-01-22] MEDS: Insulin Lispro 100 UNIT/ML 3 ML VIAL SUBCUT ×2 (08:18→12:01)
[2024-01-22] MEDS: 0.9 % Sodium Chloride Flush 3 ML SYRINGE IVFLUSH (08:19)
[2024-01-22] MEDS: Simethicone 80 MG TAB.CHEW PO (08:29)
--- NOTE | 2024-01-22 10:06 | MHC.CLN ---
F/U DIET ADVANCED TO REGULAR THIS MORNING. REVIEWED LABS. COMMUNICATED WITH PHARMACY. IF CONTINUES TO TOLERATE DIET, POSSIBLE DISCHARGE TODAY. HAS PPN AT MAX GOAL: PPN AT 60 ML/HR WITH 45 G LIPIDS TO PROVIDE 1184 TOTAL KCALS (24 KCALS/KG CMW), 144 G DEXTROSE, 61 G PROTEIN (1.2 G/KG CMW). REPLETE LYTES NEEDED. FOLLOW FOR PROVIDER RECS IF PPN TO CONTINUE. IF PPN CONTINUES, RECOMMEND CONTINUE AT MAX GOAL RATE. FOLLOW FOR PPN TOLERANCE AND PO INTAKE.
[2024-01-22 11:11] LABS: Glucose, Whole Blood 161 mg/dL (60-115)
--- NOTE | 2024-01-22 14:33 | PM.DS ---
DS: Providers Provider Date of Service: 01/22/24 Date of admission: 01/15/24 08:05 Date of discharge: 01/22/24 Primary care physician: Rambo Melchor MD Attending physician on admission: Enrrique Worthy Attending physician on discharge: Enrrique Worthy DS: Diagnosis Discharge Diagnosis (1) Status post laparotomy with lysis of adhesions: Status: Acute (2) Small bowel obstruction: Status: Acute DS: Summary Hospital Course Hospital Course: HPI AT ADMISSION: Velia Ye is a 68 year old female with PMH hyperlipidemia, hypothyroidism, diabetes who presented to the ED with complaints of abdominal pain. She states that she has been having intermittent upper abdominal pain over the past 3 months worsened by eating. This has been moderate in severity but yesterday it acutely worsened and she developed nausea, vomiting and bloating. She has been passing flatus but last bowel movement close to a week ago. Work up in the ED included CBC, BMP, LFTs which was significant for a leukocytosis of 14.9. CT scan abd/pelvis showed distended stomach with dilated small bowel is to a transition point within the left lower abdominal quadrant, focal angulation and tethering the small bowel mesentery is present adjacent to the small bowel transition point. She notes minimal improvement in pain this morning. NGT has not had significant drainage. She denies any prior abdominal surgeries. Last colonoscopy in 2014 was normal. HOSPITAL COURSE: She was admitted to the surgical service for further treatment of the SBO. Her CT scan findings concerning in setting of virgin abdomen. Given the concern for high grade SBO without prior abd surgeries, surgical exploration was recommended. She was added onto the OR schedule for that day for exploratory laparotomy, lysis of adhesions, possible small bowel resection. She is NPO, will cont NGT to suction, IVF, PRN analgesics. On 01/15/24, exploratory laparotomy, adhesionolysis, enterolysis, partial omentectomy, appendectomy, drainage of ascites was performed by Dr. Worthy without immediate complication. The patient tolerated the procedure well. She had a slow but uneventful recovery course awaiting return of GI function which was expected. She was started on a STRUCTURAL STEEL ERECTOR for pain control post operatively. Her NGT was removed on POD #1 after she had minimal output and she was started on sips of liquids. Her mcgee was discontinued. She was ambulated and her activity was increased over the following few days. Her STRUCTURAL STEEL ERECTOR was discontinued and she was transitioned to PRN analgesics. She unfortunately was unable to tolerate further advancement of her diet for a few days and had no significant GI function. She was therefore started on PPN while awaiting. She eventually started to move her bowels and pass flatus and her diet was advanced. On the day of discharge, she was tolerating a solid diet without nausea or vomiting, had good pain control, was ambulating without difficulty. Her abdomen was benign with clean incision. She was discharged to home on 01/22/24 in stable condition. Her final pathology was pending. She is to follow up in the office in 1 week. Status at Discharge Functional status at discharge: independent ambulation Overall status at discharge: patient is progressing back to baseline Time Attestation Discharge Coordination Time (in mins): 40 Quality: Safe Use of Opioids Does Pt have an Active Cancer Diagnosis on the Problem List?: No Quality: Stroke Does the patient have a stroke diagnosis?: No Physical Exam Vital Signs: Vital Signs: Last Vital Signs Temp 97.9 F 01/22/24 07:07 Pulse 77 01/22/24 07:07 Resp 18 01/22/24 07:07 BP 149/87 H 01/22/24 07:07 Pulse Ox 92 01/22/24 07:07 O2 Del Method Room Air 01/22/24 07:07 O2 Flow Rate 2 01/16/24 07:43 BMI result Body Mass Index 26.2 Const: General: comfortable, no acute distress and alert Orientation/consciousness: patient oriented x3 Resp: Effort & Inspection: normal respiratory effort GI: Inspection: No distended and Yes incision (clean) Palpation (GI): Soft to palpation, nontender and no guarding Skin: General skin exam: no rashes or lesions noted Neuro: General: patient oriented x3 and moves all extremities DS: Data Data Completed and Pending Pending studies at discharge: Pending at discharge 01/15/24 15:15 Surgical [PTH] Routine Discharge Plan Discharge Anticipated Discharge Date/Time: 01/22/24 14:35 Patient Disposition: Home, Self-Care Discharge Diagnosis: Small-bowel obstruction, omental caking Referrals: Rambo Melchor MD [Primary Care Provider] - 1 Week Enrrique Worthy MD [Physician] - 1 Week Discharge Medications: New hydrocodone-acetaminophen 5-325 mg tablet 1 tab PO Q4-6H PRN (Reason: pain) Qty: 30 0RF Rx Instructions: Partial Fill upon patient request. Continued atorvastatin [Lipitor] 40 mg tablet 40 mg PO DAILY 90 Days Qty: 90 3RF metformin 500 mg tablet extended release 24hr 500 mg PO BID 90 Days Qty: 180 3RF levothyroxine 25 mcg tablet 25 mcg PO DAILY@0600 Rx Instructions: Take on an empty stomach, first thing in the morning, with water. Do not eat or drink anything else for 30 minutes afterwards fluticasone propionate 50 mcg/actuation spray,suspension 2 spray intranasal DAILY PRN (Reason: allergy symptoms) 90 Days Qty: 3 3RF Rx Instructions: administer into each nostril aspirin 81 mg tablet,delayed release (DR/EC) 81 mg PO DAILY 90 Days Qty: 90 3RF (DME) lancets [FreeStyle Lancets] 28 gauge misc See Rx Instructions .ROUTE .MEDSUPPLY Qty: 100 12RF Rx Instructions: As directed once a day (DME) FreeStyle Lite Strips Strip See Rx Instructions .ROUTE .MEDSUPPLY Qty: 100 12RF Rx Instructions: As directed once a day cetirizine 10 mg tablet 10 mg PO DAILY PRN (Reason: allergy symptoms) 90 Days Qty: 90 3RF No Action hydrocodone-acetaminophen 5-325 mg tablet 1 tab PO Q4-6H PRN (Reason: pain) Qty: 30 0RF Rx Instructions: Partial Fill upon patient request. hydrocodone-acetaminophen 5-325 mg tablet 1 tab PO Q4-6H PRN (Reason: pain) Qty: 30 0RF Rx Instructions: Partial Fill upon patient request. Discharge Orders: Discharge Order (Routine); Ordered 01/22/24 Ordered By: Enrrique Worthy Diet: Advance to usual diet Activity on Discharge: No heavy lifting Stand Alone Forms: Patient Portal Discharge page Print Language: Croatian Activity Restrictions/Additional Instructions: Ok to shower 48 hours after your surgery. You have steri strips (small white cloth strips) covering your incision- these will fall off ~1 week. Follow up in office with Dr. Worthy in 1 week. ([phone]) No heavy lifting (>10lbs) or strenuous activity! Call Your Doctor If: -Your temperature exceeds 101.5? F -You experience excessive pain or swelling -You have an unexpected reaction to medication -You have excessive bleeding -You experience continued vomiting/nausea -Your incision begins to separate -Your incision shows signs of infection such as increased redness, swelling, excessive pain, drainage (light blood or clear fluid is normal) or heat Care Plan Goals: Returned to baseline Health Concerns: Continued convalescence Plan of Treatment: Per discharge instructions Assessment: Doing well post op. Discharge Date/Time: 01/22/24 15:45
--- NOTE | 2024-01-22 15:48 | PC.NURSE ---
R AC IV noted to be infiltrated, IV had PPN running. Arm noted to have edema above IV site, tender to touch. No redness or discoloration noted at site. Pharmacy and Paula VELÁSQUEZ made aware. Per PA warm compresses and tylenol/motrin as needed while at home. Patient educated on need to call MD if arm has worsening edema, redness, or increased pain. Patient verbalized understanding. Warm compress applied prior to discharge. All needs met.
--- NOTE | 2024-01-22 15:59 | MHC.CM.PN ---
PT WILL DC HOME TODAY WITH NO SERVICES VIA PRIVATE TRANSPORT
== END 2024-01-22 15:45 | disposition home or self-care (01) | DRG 337 ==
LOC: HO.ED 01-15 07:26 → HO.EDOVER 01-15 08:15 → HO.S3 01-15 13:46
PROVIDERS: Admitting Provider Physician Assistant Surgical; Emergency Provider Emergency Medicine; PCP Internal Medicine; Visit Provider Surgery
PROC: 0DN80ZZ Release Small Intestine, Open Approach (ICD-10-PCS; CPT 49000; principal; 2024-01-15 15:40)
DX: K56.52 Intestinal adhesions [bands] with complete obstruction (principal); K38.8 Other specified diseases of appendix; Z87.891 Personal history of nicotine dependence; Z79.82 Long term (current) use of aspirin; Z79.84 Long term (current) use of oral hypoglycemic drugs; Z79.890 Hormone replacement therapy; Z79.899 Other long term (current) drug therapy
CPT/HCPCS: 36415; 71045; 74177; 80048; 80053; 80076; 81001; 82947; 83690; 83735; 84100; 84478; 85025; 86850; 86900; 86901; 87086; 88304; 88341; 88342; 88360; 99285; J0131; J0330; J0690; J1100; J1171; J1644; J1885; J2003; J2250; J2270; J2405; J2704; J2765; J2795; J3010; J7120; Q9967

== ENCOUNTER → 2024-01-15 08:05 | Outpatient (BNV) | payer OTHER, SELFPAY | PROVIDERS: Admitting Provider Physician Assistant Surgical; Emergency Provider Emergency Medicine; PCP Internal Medicine; Visit Provider Physician Assistant Surgical | DX: Z98.890 Other specified postprocedural states (principal); K56.609 Unspecified intestinal obstruction, unspecified as to partial versus complete obstruction | CPT/HCPCS: 44180; 44955; 99024; 99223 ==

== ENCOUNTER 2024-01-25 12:59 | Outpatient (AMB) | payer OTHER, SELFPAY ==
--- NOTE | 2024-01-25 13:03 | MHC.OFFVIS ---
Intake Visit Reasons: s/p SBO surgery 01/15/24 Intake Note: Patient here s/p SBO surgery on 01-15-2024. Reports incisions healing well. Patient c/o: pain. Rx pain meds were never delivered. Only taking aleve. Claims Examiner Required: No Accompanied by: Spouse Allergies Sulfa (Sulfonamide Antibiotics) [SULFA (SULFONAMIDE ANTIBIOTICS)] Allergy (Unknown, Verified 01/25/24 13:07) HIVES, THROAT SWELLING HPI Comments Details: Patient presents with the for follow-up. All things considered, she thinks she is doing quite well. She is tolerating her diet. She has been having regular bowel habits. She is increasing her activity level. She has minimal incisional discomfort. Final pathology still pending. [facility] Medical History Thickened endometrium Uterine fibroid Pelvic fullness in female Subclinical hypothyroidism Overweight (BMI 25.0-29.9) Vitamin D deficiency Cervical disc herniation Allergic rhinitis Diabetes mellitus Pure hypercholesterolemia Surgical History History of colonoscopy (~12/2014) History of cervical spinal surgery Family History Father Stroke Mother Diabetes Hypertension Daughter Cervical cancer Social History Household Members: Spouse Housing: House Are you a primary director of career services to a significant other at home: No Do you presently have visiting nurse or other home services: No Alcohol intake: current Alcohol intake frequency: holidays/special occasions only Patient Tobacco Use Status: Former Tobacco user Tobacco use type: Cigarette Years Smoked: 2 e-Cigarette/Vaping Use: Never Used Second Hand Smoke Exposure: No service: No Current occupational status: unemployed Sexual orientation: Straight/Heterosexual Gender identity: Female Cognitive needs: No Hearing needs: No Vision needs: Yes Female Reproductive History Menstrual Age of Menarche: 12 Physical Exam GI Other: Abdomen is soft. Incision clean dry and intact healing very well Assessment & Plan Assessment & Plan (1) Status post exploratory laparotomy: Code(s): Z98.890 - Other specified postprocedural states Category: Medical Plan Current plan is see the patient in few weeks time for follow-up. She had a pathology results come back before then, the patient will be contacted. She should avoid strenuous activities. All questions answered. Medications: New hydrocodone-acetaminophen 5-325 mg Partial Fill upon patient request. 1 tab PO Q4-6H PRN 30 tabs 0RF pain hydrocodone-acetaminophen 5-325 mg Partial Fill upon patient request. 1 tab PO Q4-6H PRN 30 tabs 0RF pain Coding Level of Care Code Global (10370) Diagnoses Status post exploratory laparotomy Z98.890
== END 2024-01-25 13:15 | disposition home or self-care (01) ==
PROVIDERS: PCP Internal Medicine; Visit Provider Surgery
DX: Z98.890 Other specified postprocedural states (principal)
CPT/HCPCS: 99024

== ENCOUNTER → 2024-01-25 12:59 | Outpatient (BNVA) | payer OTHER, SELFPAY | PROVIDERS: PCP Internal Medicine; Visit Provider Surgery | DX: Z98.890 Other specified postprocedural states (principal) | CPT/HCPCS: 99212 ==

== ENCOUNTER 2024-02-02 08:53 | Outpatient (AMB) | payer OTHER, SELFPAY ==
[2024-02-02 08:55] VITALS: BP 122/68; PULSE 70; O2SAT 98; BMI 25.4
--- NOTE | 2024-02-02 08:55 | A.OFFPC_ITS ---
Vital Signs 02/02/24 08:55 Height 5 ft Weight 130 lb BMI 25.4 BP 122/68 Blood Pressure Location Lt brachial Position Sitting Pulse 70 Pulse Source Pulse Oximeter Pulse Oximetry (%) 98 Oxygen Delivery Method Room Air Intake Visit Reasons[place] [facility] [place] Obstruction surgery Allergies Sulfa (Sulfonamide Antibiotics) [SULFA (SULFONAMIDE ANTIBIOTICS)] Allergy (Unknown, Verified 02/02/24 08:56) HIVES, THROAT SWELLING Tobacco use date assessed: 02/02/24 Fall risk assessment: No Falls in past year Last assessed Fall Risk: 02/02/24 Dental Screening Dental Screen Date: 06/10/23 HPI HPI Comments History of Present Illness Details 68 y/o female patient who presents to [facility] for HDF. She was admitted at [facility] [place]15/24 due to SBO. She did have surgery on 01/15/24; Ex lap, appendectomy with lysis adhesions. She was discharged home on 01/22/24 in good condition. She followed with general surgery on 01/25/24, and next appointment 02/16/24. Today reports constipation due to Pain medications, and she has not had Bowel movement for 2 days. Reports drinking plenty of water and vegetables. [facility] Medical History (Updated 02/02/24 @ 09:48 by Melinda Sanchez NP) Constipation Thickened endometrium Uterine fibroid Pelvic fullness in female Subclinical hypothyroidism Overweight (BMI 25.0-29.9) Vitamin D deficiency Cervical disc herniation Allergic rhinitis Diabetes mellitus Pure hypercholesterolemia Surgical History (Updated 01/30/24 @ 00:03 by Claritza Cramer) History of colonoscopy (~12/2014) History of cervical spinal surgery Family History Father Stroke Mother Diabetes Hypertension Daughter Cervical cancer Social History Household Members: Spouse Housing: House Are you a primary patient care technician to a significant other at home: No Do you presently have visiting nurse or other home services: No Alcohol intake: current Alcohol intake frequency: holidays/special occasions only Patient Tobacco Use Status: Former Tobacco user Tobacco use type: Cigarette Years Smoked: 2 e-Cigarette/Vaping Use: Never Used Second Hand Smoke Exposure: No service: No Current occupational status: unemployed Sexual orientation: Straight/Heterosexual Gender identity: Female Cognitive needs: No Hearing needs: No Vision needs: Yes Female Reproductive History Menstrual Age of Menarche: 12 Questionnaire PHQ-9 Over the last 2 weeks, how often have you been bothered by any of the following problems? 1. Little interest or pleasure in doing things: not at all 2. Feeling down, depressed, or hopeless: not at all 3. Trouble falling or staying asleep, or sleeping too much: not at all 4. Feeling tired or having little energy: not at all 5. Poor appetite or overeating: not at all 6. Feeling bad about yourself - or that you are a failure or have let yourself or your family down: not at all 7. Trouble concentrating on things, such as reading the newspaper or watching television: not at all 8. Moving or speaking so slowly that other people could have noticed. Or the opposite - being so fidgety or restless that you have been moving around a lot more than usual: not at all 9. Thoughts that you would be better off or of hurting yourself in some way: not at all Total score: 0 Depression Screening Interpretation: Negative Depression Screening Done: Yes Source: Developed by Drs. Rick Lima, Farzad Brumfield and colleagues, with an educational andrew from [employer]. Thrive Questionnaire Date Thrive assessed: 01/16/24 AUDIT C Alcohol Use Questionnaire (AUDIT-C) 1. How often do you have a drink containing alcohol?: Monthly or less 2. How many drinks containing alcohol do you have on a typical day when you are drinking?: 1 or 2 3. How often do you have six or more drinks on one occasion?: Never Total Score: 1 NACHO-7 AMB Questionnaire NACHO-7 Date NACHO - 7 assessed: 06/10/23 Source: Developed by Drs. Rick Lima, Farzad Brumfield and colleagues, with an educational andrew from [employer]. Review of Systems Const All systems reviewed & are unremarkable except as noted in HPI and below Physical exam (Primary Care) Vital Signs: Last Vital Signs Pulse 70 02/02/24 08:55 BP 122/68 02/02/24 08:55 Pulse Ox 98 02/02/24 08:55 Oxygen Delivery Method Room Air 02/02/24 08:55 BMI result Body Mass Index 25.4 Tobacco/Smoking Status: Tobacco use Status Tobacco use date assessed 02/02/24 02/02/24 09:01 Patient Tobacco Use Status Former Tobacco user 02/02/24 09:01 Tobacco use type Cigarette 02/02/24 09:01 e-Cigarette/Vaping Use Never Used 02/02/24 09:01 PHQ-9: PHQ-9 Score PHQ-9: Total score 0 02/02/24 09:37 Depression Screening Interpretation: Negative Thrive Assessment: Date of Thrive Assessment Date Thrive assessed 01/16/24 02/02/24 09:01 Const General: cooperative and no acute distress Nutritional Appearance: overweight Orientation/consciousness: patient oriented x3 Resp Effort & Inspection: normal respiratory effort Auscultation: clear to auscultation bilaterally Cardio Heart sounds: S1 normal heart sound present and S2 normal heart sound present GI Other: Large linear surgical incision , healing well, dry and normal skin color. Inspection: Yes incision Palpation (GI): Soft to palpation, not firm, Tenderness to palpation present (GI) (At the surgical site incision. ) and no guarding Rectal Exam - Female: deferred Neuro General: patient oriented x3, gait normal and moves all extremities Coding Level of Care Code Est Pt Level 4 (38552) Diagnoses Status post laparotomy with lysis of adhesions Z98.890 Small bowel obstruction K56.609 Slow transit constipation K59.01 Constipation type: slow transit constipation Time Spent (min) 20 Assessment & Plan Assessment & Plan (1) Status post laparotomy with lysis of adhesions: Code(s): Z98.890 - Other specified postprocedural states Category: Surgical Plan: Recovering well at home Continue f/u with Surgery as scheduled. (2) Small bowel obstruction: Code(s): K56.609 - Unspecified intestinal obstruction, unspecified as to partial versus complete obstruction Plan: Resolved. (3) Constipation: Code(s): K59.00 - Constipation, unspecified Category: Medical Qualifiers: Constipation type: slow transit constipation Qualified Code(s): K59.01 - Slow transit constipation Plan: Ordered Colace BID Advised to increase Fiber intake and water. Medications: New docusate sodium (Colace) 100 mg PO BID 60 caps 0RF K59.00 - Constipation, unspecified
== END 2024-02-02 10:20 | disposition home or self-care (01) ==
PROVIDERS: PCP Internal Medicine; Visit Provider Nurse Practitioner Family
DX: Z98.890 Other specified postprocedural states (principal); K56.609 Unspecified intestinal obstruction, unspecified as to partial versus complete obstruction; K59.01 Slow transit constipation

== ENCOUNTER → 2024-02-02 08:53 | Outpatient (BNVA) | payer OTHER, SELFPAY | PROVIDERS: PCP Internal Medicine; Visit Provider Nurse Practitioner Family | DX: K56.609 Unspecified intestinal obstruction, unspecified as to partial versus complete obstruction (principal); K59.01 Slow transit constipation; Z98.890 Other specified postprocedural states | CPT/HCPCS: 99212 ==

== ENCOUNTER 2024-02-16 09:10 | Outpatient (AMB) | payer OTHER, SELFPAY ==
--- NOTE | 2024-02-16 09:19 | A.OFFVIS_ITS ---
Vital Signs 02/16/24 09:24 Height 5 ft Weight 131 lb BMI 25.6 BP 143/65 H Blood Pressure Location Rt brachial Position Sitting Pulse 73 Intake Visit Reasons: 3 wk follow up s/p SBO surgery 01/15/24 Intake Note: Patient here 4wk s/p exploratory laparotomy, adhesion lysis, enterolysis, partial omentectomy, appendectomy, drainage of ascites. Reports incisions healing well. Patient c/o: pain, still taking rx pain meds. Loosing weight. SX: 01-15-2024. 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 She is eating but continues to lose weight. She states that she has lost at least 12 lb since surgery. In the meantime, patient was scheduled to follow-up with the business solutions architect Oncology this Thursday a [facility]. We discussed the results of her surgery which are highly suggestive of a business solutions architect oncologic etiology of her intra-abdominal pathology. [facility] Medical History (Updated 02/02/24 @ 09:48 by Melinda Sanchez NP) Constipation Thickened endometrium Uterine fibroid Pelvic fullness in female Subclinical hypothyroidism Overweight (BMI 25.0-29.9) Vitamin D deficiency Cervical disc herniation Allergic rhinitis Diabetes mellitus Pure hypercholesterolemia Surgical History (Updated 02/16/24 @ 09:34 by Enrrique Worthy MD) History of colonoscopy (~12/2014) History of cervical spinal surgery Family History Father Stroke Mother Diabetes Hypertension Daughter Cervical cancer Social History Household Members: Spouse Housing: House Are you a primary career services coordinator to a significant other at home: No Do you presently have visiting nurse or other home services: No Alcohol intake: current Alcohol intake frequency: holidays/special occasions only Patient Tobacco Use Status: Former Tobacco user Tobacco use type: Cigarette Years Smoked: 2 e-Cigarette/Vaping Use: Never Used Second Hand Smoke Exposure: No service: No Current occupational status: unemployed Sexual orientation: Straight/Heterosexual Gender identity: Female Cognitive needs: No Hearing needs: No Vision needs: Yes Female Reproductive History Menstrual Age of Menarche: 12 Physical Exam Vital Signs: Last Vital Signs Pulse 73 02/16/24 09:24 BP 143/65 H 02/16/24 09:24 BMI result Body Mass Index 25.6 GI Other: Abdomen is soft. Wound is healing very well clean dry and intact Assessment & Plan Assessment & Plan (1) Postop check: Code(s): Z09 - Encounter for follow-up examination after completed treatment for conditions other than malignant neoplasm Category: Surgical Plan At present, no further surgical issues. Patient and I strongly encouraged to keep their appointment with the business solutions architect oncologist for this Thursday. All questions answered. Should the [place] physician require any records, including operative notes were pathology reports, patient and instructed to have the business solutions architect oncology office call our and we will provide whatever results he requires. All questions answered. Patient will otherwise follow-up with me p.r.n.. Coding Level of Care Code Global (23566) Diagnoses Postop check Z09
[2024-02-16 09:24] VITALS: BP 143/65; PULSE 73; BMI 25.6
== END 2024-02-16 09:32 | disposition home or self-care (01) ==
PROVIDERS: PCP Internal Medicine; Visit Provider Surgery
DX: Z09 Encounter for follow-up examination after completed treatment for conditions other than malignant neoplasm (principal)
CPT/HCPCS: 99024

== ENCOUNTER → 2024-02-16 09:10 | Outpatient (BNVA) | payer OTHER, SELFPAY | PROVIDERS: PCP Internal Medicine; Visit Provider Surgery | DX: Z09 Encounter for follow-up examination after completed treatment for conditions other than malignant neoplasm (principal); Z90.49 Acquired absence of other specified parts of digestive tract; Z98.890 Other specified postprocedural states | CPT/HCPCS: 99212 ==

== ENCOUNTER 2024-08-15 10:01 | Outpatient (REF) | payer OTHER, SELFPAY | END 2024-08-15 10:02 | disposition home or self-care (01) | LOC: HO.MAMMO 10:01 | PROVIDERS: PCP Internal Medicine; Visit Provider Internal Medicine | DX: Z12.31 Encounter for screening mammogram for malignant neoplasm of breast (principal) | CPT/HCPCS: 77063; 77067 ==

== ENCOUNTER → 2024-08-15 10:15 | Outpatient (BNV) | payer OTHER, SELFPAY | PROVIDERS: PCP Internal Medicine; Visit Provider Internal Medicine | DX: Z12.31 Encounter for screening mammogram for malignant neoplasm of breast (principal) | CPT/HCPCS: 77063; 77067 ==

== ENCOUNTER 2024-10-17 06:02 | Outpatient (REF) | payer OTHER, SELFPAY ==
[2024-10-17 06:22] LABS: MANUAL DIFF FLAG NO
[2024-10-17 07:48] LABS: Hematocrit 32.6 % (37.0-47.0); Hemoglobin 10.7 g/dl (12.0-16.0); Imm Gran Abs Auto 0.01 X10*3/uL (0.00-0.03); Imm Gran Pct Auto 0.2 % (0.0-0.4); Lymphocytes Absolute Auto 3.1 X10*3/uL (1.2-4.9); Mean Corpuscular HGB Conc 32.8 g/dl (31.0-35.0); Mean Corpuscular Hemoglobin 30.3 pg (27.0-33.0); Mean Corpuscular Volume 92.4 fL (80.0-98.0); NRBC Abs Auto 0.000 X10*3/uL (0.0-0.012); NRBC Pct Auto 0.0 /100WBC (0.0-0.2); Platelet Count 191 X10*3/uL (160-400); Red Blood Count 3.53 X10*6/uL (4.20-5.50); White Blood Count 6.2 X10*3/uL (4.8-10.8)
[2024-10-17 08:12] LABS: Hemoglobin A1C 119.2717 umol/L; Total Hemoglobin (HGBA1C) 2844.7891 umol/L
[2024-10-17 08:24] LABS: Appearance Urine Clear; Glucose Urine UA Negative (Negative); PH 6.5 (5.0-9.0); Specific Gravity - Urine 1.010 (1.005-1.025); UMIC TRIGGER UACC YES
[2024-10-17 08:31] LABS: UACC Culture Trigger YES
[2024-10-17 08:32] LABS: Alanine Aminotransferase 35 U/L (0-31); Albumin Level 4.1 g/dL (3.5-5.0); Alkaline Phosphatase 86 U/L (39-117); Anion Gap 12 (12-20); Aspartate Amino Transferase 36 U/L (5-31); Blood Urea Nitrogen 12 mg/dL (9-16); Calcium 9.3 mg/dL (8.4-10.2); Carbon Dioxide 26 mmol/L (22-29); Chloride 107 mmol/L (96-108); Cholesterol 150 mg/dL (<200); Estimated Glomerular Filt Rate > 60; HDL Cholesterol 46 mg/dL (>40); Potassium 3.8 mmol/L (3.3-5.1); Sodium 141 mmol/L (135-145); Total Protein 7.2 g/dL (6.5-8.0); Triglycerides 95 mg/dL (<150)
[2024-10-17 08:35] LABS: Free T4 (Free Thyroxine) 1.00 ng/dL (0.71-1.85); Thyroid Stimulating Hormone 3.36 uIU/mL (0.32-4.0)
[2024-10-17 08:46] LABS: Folate 12.1 ng/mL (> or = 4.0); Vitamin B12 313 pg/mL (200-900)
[2024-10-17 08:53] LABS: Microalbum/Creatinine Ratio Ur 9.2 ug/mg cr (<30)
== END 2024-10-17 06:03 | disposition home or self-care (01) ==
LOC: HO.LAB 06:02
PROVIDERS: PCP Internal Medicine; Visit Provider Internal Medicine
DX: Z00.00 Encounter for general adult medical examination without abnormal findings (principal); E03.9 Hypothyroidism, unspecified; E11.9 Type 2 diabetes mellitus without complications; E78.00 Pure hypercholesterolemia, unspecified; D64.9 Anemia, unspecified; E55.9 Vitamin D deficiency, unspecified; E53.8 Deficiency of other specified B group vitamins; R30.0 Dysuria
CPT/HCPCS: 36415; 80053; 80061; 81001; 82043; 82306; 82570; 82607; 82746; 83036; 84439; 84443; 85025; 87086; 87088; 87186

== ENCOUNTER 2024-10-21 12:46 | Outpatient (AMB) | payer OTHER, SELFPAY ==
--- NOTE | 2024-10-21 12:51 | A.OFFPC_ITS ---
Vital Signs 10/21/24 12:55 Height 5 ft Weight 118 lb 4 oz BMI 23.1 BP 130/70 Blood Pressure Location Lt brachial Position Sitting Pulse 65 Pulse Source Pulse Oximeter Temp 97.3 F Temp Source Temporal Artery Scan Pulse Oximetry (%) 95 Oxygen Delivery Method Room Air Intake Visit Reasons: Annual PE Intake Note: Patient is here today for a physical. Cook Specialty Foreign Food Required: No Integrative Medicine Physician: Present Accompanied by: Spouse Allergies Sulfa (Sulfonamide Antibiotics) (SULFA (SULFONAMIDE ANTIBIOTICS)) Allergy (Unknown, Verified 10/21/24 13:15) HIVES, THROAT SWELLING Medication List - Last Reconciled 10/21/24 by Rambo Melchor MD apixaban (Eliquis) 2.5 mg PO BID aspirin 81 mg PO DAILY 90 days atorvastatin (Lipitor) 40 mg PO DAILY 90 days blood sugar diagnostic (FreeStyle Lite Strips) As directed once a day fluticasone propionate 50 mcg/actuation 2 sprays intranasal DAILY PRN 90 days lancets (FreeStyle Lancets) As directed once a day levothyroxine 25 mcg PO DAILY@0600 Tobacco use date assessed: 10/21/24 Fall risk assessment: 1 Fall in past year Last assessed Fall Risk: 10/21/24 Dental Screening Dental Screen Date: 10/21/24 Did you have a dental visit in the last 12 months?: Yes Did you have a dental problem in the last 6 months where you did not have access to dental care?: No Was dental information given to patient?: Patient has dentist HPI Annual PE HPI Details Patient comes in today for her annual physical examination - was last seen by me over a year ago on 06/10/2023 Patient was diagnosed with gynecologic adenocarcinoma/stage III ovarian cancer after repeated bouts of abdominal pain and GI complaints last year led to further imaging studies initially revealed endometrial thickening She was then referred to Gynecologic Oncology at [facility] were additional workups and biopsies revealed her gynecologic carcinoma Patient also developed small bowel obstruction late last year that required surgical exploration and intervention She was started on chemotherapy with carboplatin and Taxol every 21 days, which she states she just completed about 3 weeks ago She also underwent surgical debulking back in June 2024 and 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, bilateral ovaries and bilateral fallopian tubes Patient states that she is currently on immunotherapy but can not recall the name of her medication - we will try to obtain the most recent copies of her office visit notes from her oncologist at [facility] for documentation Patient states that she currently feels okay She denies any headaches or dizziness Denies any chest pains, no increased shortness of breath No nausea/vomiting, no abdominal pain No change in bowel habits noted She denies any acute urinary symptoms States that she has not been taking her Metformin for the past 2 to 3 months now and is currently just taking an OTC product called Glucocyn 1000 mg 1 tablet BID to help control her diabetes She had her follow-up labs done a few days ago - to discuss her results She is due for her repeat colonoscopy this year but with her recent gynecologic surgery and chemotherapy, she would like to hold off on this at least until her follow-up imaging studies in a few months She had her annual mammogram done a couple of months ago in August 2024 - mammogram came back negative [facility] Medical History (Updated 10/23/24 @ 00:27 by Rambo Melchor MD) Ovarian cancer Constipation Thickened endometrium Uterine fibroid Pelvic fullness in female Subclinical hypothyroidism Overweight (BMI 25.0-29.9) Vitamin D deficiency Cervical disc herniation Allergic rhinitis Diabetes mellitus Pure hypercholesterolemia Surgical History (Updated 10/21/24 @ 13:04 by LISSET Cali) History of hysterectomy for cancer History of colonoscopy (~12/2014) History of cervical spinal surgery Family History Father Stroke Mother Diabetes Hypertension Daughter Cervical cancer Social History Household Members: Spouse Housing: House Are you a primary health care coordinator to a significant other at home: No Do you presently have visiting nurse or other home services: No Alcohol intake: current Alcohol intake frequency: holidays/special occasions only Patient Tobacco Use Status: Former Tobacco user Tobacco use type: Cigarette Years Smoked: 2 e-Cigarette/Vaping Use: Never Used Second Hand Smoke Exposure: Yes service: No Current occupational status: unemployed Sexual orientation: Straight/Heterosexual Gender identity: Female Cognitive needs: No Hearing needs: No Vision needs: Yes Female Reproductive History Menstrual Age of Menarche: 12 Questionnaire PHQ-9 Over the last 2 weeks, how often have you been bothered by any of the following problems? 1. Little interest or pleasure in doing things: not at all 2. Feeling down, depressed, or hopeless: not at all 3. Trouble falling or staying asleep, or sleeping too much: not at all 4. Feeling tired or having little energy: not at all 5. Poor appetite or overeating: not at all 6. Feeling bad about yourself - or that you are a failure or have let yourself or your family down: not at all 7. Trouble concentrating on things, such as reading the newspaper or watching television: not at all 8. Moving or speaking so slowly that other people could have noticed. Or the opposite - being so fidgety or restless that you have been moving around a lot more than usual: not at all 9. Thoughts that you would be better off or of hurting yourself in some way: not at all Total score: 0 Depression Screening Interpretation: Negative Depression Screening Done: Yes 69988 - PHQ-9 Billing: Yes Source: Developed by Drs. Rick Lima, Crissy Luis, Farzad Matute and colleagues, with an educational andrew from [employer]. Thrive Questionnaire Date Thrive assessed: 10/18/24 I am a: Patient What is your living situation today?: I have a steady place to live Within the past 12 months, did the food you bought not last and you didn't have the money to get more?: I choose not to answer this question Within the past 12 months, did you worry whether your food would run out before you got money to buy more?: I choose not to answer this question Do you have trouble paying for medicines?: I choose not to answer this question Do you have trouble getting transportation to medical appointments?: I choose not to answer this question Do you have trouble paying your heating and electricity bill?: I choose not to answer this question Do you have trouble taking care of your child, family member or friend?: I choose not to answer this question Do you have trouble with day-to-day activities such as bathing, preparing meals, shopping, managing finances, etc.?: I choose not to answer this question Are you currently unemployed and looking for a job?: I choose not to answer this question Are you interested in more education?: I choose not to answer this question Please select the resources that you would like help with: None Currently or been in a relationship where the following occur: No concerns reported THRIVE Score: 0 AUDIT C Alcohol Use Questionnaire (AUDIT-C) 1. How often do you have a drink containing alcohol?: Monthly or less 2. How many drinks containing alcohol do you have on a typical day when you are drinking?: 1 or 2 3. How often do you have six or more drinks on one occasion?: Less than monthly Total Score: 2 Score Reviewed/Action Taken: Yes NACHO-7 AMB Questionnaire NACHO-7 Date NACHO - 7 assessed: 10/21/24 Feeling nervous, anxious, or on edge: 0 = Not at all Not being able to stop or control worryin = Not at all Worrying too much about different things: 0 = Not at all Trouble relaxin = Not at all Being so restless that it is hard to sit still: 0 = Not at all Becoming easily annoyed or irritable: 0 = Not at all Feeling afraid as if something awful might happen: 0 = Not at all Total NACHO-7 score (0-4 normal; 5-9 mild; 10-14 moderate; 15-21 severe): 0 Source: Developed by Drs. Rick Lima, Crissy Luis, Farzad Matute and colleagues, with an educational andrew from [employer]. Review of Systems Const Denies chills, Denies fatigue, Denies fever(s), Denies headache(s) and Denies malaise Eyes Denies blurry vision, Denies change in vision, Denies irritation and Denies itchy eyes ENT Denies dysphagia, Denies dizziness, Denies otalgia, Denies headache(s), Denies nasal congestion, Denies neck pain, Denies odynophagia, Denies sinus pain and Denies sore throat Card Denies chest pain, Denies rapid heart rate, Denies irregular heart rhythm, Denies palpitations and Denies dyspnea Resp Denies chest congestion, Denies cough, Denies dyspnea and Denies wheezing GI Denies abdominal pain, Denies bloating, Denies constipation, Denies dysphagia, Denies heartburn, Denies diarrhea, Denies nausea, Denies odynophagia and Denies vomiting Denies hematuria, Denies urinary frequency, Denies dysuria, Denies urinary incontinence and Denies urinary urgency Musc Denies back pain, Denies arthralgias, Denies joint swelling, Denies muscle weakness and Denies neck pain Skin/Breast Denies breast pain, Denies breast mass, Denies change in pigmentation, Denies lesions, Denies rash and Denies unusual bruising Neuro Denies dizziness, Denies headache(s) and Denies paresthesias Psych Denies anxiety and Denies depression Endo Denies fatigue and Denies palpitations Wm/Lymph Denies easy bruising Aller/Immun Denies itchy eyes and Denies wheezing Physical exam (Primary Care) Vital Signs: Last Vital Signs Temp 97.3 F 10/21/24 12:55 Pulse 65 10/21/24 12:55 BP 130/70 10/21/24 12:55 Pulse Ox 95 10/21/24 12:55 Oxygen Delivery Method Room Air 10/21/24 12:55 BMI result Body Mass Index 23.1 Tobacco/Smoking Status: Tobacco use Status Tobacco use date assessed 10/21/24 10/21/24 13:06 Patient Tobacco Use Status Former Tobacco user 10/21/24 13:06 Tobacco use type Cigarette 10/21/24 13:06 e-Cigarette/Vaping Use Never Used 10/21/24 13:06 PHQ-9: PHQ-9 Score PHQ-9: Total score 0 10/22/24 08:38 Depression Screening Interpretation: Negative Thrive Assessment: Date of Thrive Assessment Date Thrive assessed 10/18/24 10/21/24 13:06 Currently or been in a relationship where the following occur: No concerns reported Const General: no acute distress, alert and awake Orientation/consciousness: patient oriented x3 HENMT Head: Yes normocephalic and Yes atraumatic Ears: external ears normal, TM's normal bilaterally and EAC's normal General nose exam: No nasal discharge present Face and sinus: Yes normal facial exam and Yes sinuses nontender Teeth and gingiva: dentition normal Throat: Yes posterior oropharynx normal and Yes tonsils normal (no TP congestion) Eyes Eyelids: Yes eyelids normal Conjunctivae: conjunctivae normal Pupils: Equal, round and reactive pupils present EOM: EOMs intact bilaterally Neck Neck: Yes no lymphadenopathy and Yes supple Thyroid: Thyroid normal Resp Auscultation: clear to auscultation bilaterally, no rales and no wheezes Cardio Rate: regular rate Rhythm: regular rhythm Heart sounds: no murmurs GI Palpation (GI): Soft to palpation, nontender and No hepatosplenomegaly present Auscultation: normal bowel sounds General: Yes no CVA tenderness Back/Spine/Pelvis Back: no CVA tenderness Thoracic/Lumbar Spine: thoracic and lumbar spine normal to inspection Skin Lesions: no lesions Rashes: no rashes Neuro General: patient oriented x3, moves all extremities, no focal motor deficits and CN's II-XI intact bilaterally Cranial nerves: Yes Equal, round and reactive pupils present Cognition (Neuro): normal cognition Gait exam (Neuro): Normal gait present Extrem General: Yes no clubbing, cyanosis or edema Results Reviewed Results Reviewed: Laboratory Tests 10/17/24 10/17/24 06:15 06:20 WBC 6.2 Hgb 10.7 L Hct 32.6 L Plt Count 191 D Sodium 141 Potassium 3.8 Creatinine 0.76 Estimated GFR > 60 Fasting Glucose 90 Hemoglobin A1c % 6.0 Calcium 9.3 D AST 36 H ALT 35 H Triglycerides 95 Cholesterol 150 LDL Cholesterol, Calc 85 HDL Cholesterol 46 Vitamin B12 313 25-OH Vitamin D Total 45.5 TSH 3.36 Free T4 1.00 Ur Specific [place] 1.010 Urine Protein Negative Urine Glucose (UA) Negative Urine Blood Negative Urine Nitrite Negative Ur Leukocyte Esterase Moderate (2+) H Microalb/Creat Ratio 9.2 Coding Level of Care Code Est Pt Prev Care >65y(98914) Diagnoses Annual physical exam Z00.00 Malignant neoplasm of both ovaries C56.3 Laterality: bilateral Pure hypercholesterolemia E78.00 Type 2 diabetes mellitus without complication, without long-term current use of insulin E11.9 Diabetes mellitus type: type 2 Diabetes mellitus exterminator helper insulin use: without retirement use Diabetes mellitus complication status: without complication Subclinical hypothyroidism E03.8 Allergic rhinitis, unspecified seasonality, unspecified trigger J30.9 Allergic rhinitis trigger: unspecified Allergic rhinitis seasonality: unspecified Cervical disc herniation M50.20 Vitamin D deficiency E55.9 Additional Codes PHQ-9 - 96201 - PHQ-9 Billing: Yes ([id number]) Assessment & Plan Assessment & Plan (1) Annual physical exam: Code(s): Z00.00 - Encounter for general adult medical examination without abnormal findings Category: Medical Plan: Results of her labs done a few days ago reviewed and discussed with patient She had her annual mammogram done a couple of months ago in August 2024 - mammogram came back negative She is due for her repeat colonoscopy this year but with her recent gynecologic surgery and chemotherapy, she would like to hold off on this at least until her follow-up imaging studies in a few months (2) Ovarian cancer: Code(s): C56.9 - Malignant neoplasm of unspecified ovary Category: Medical Qualifiers: Laterality: bilateral Qualified Code(s): C56.3 - Malignant neoplasm of bilateral ovaries Plan: Patient initially underwent surgical exploratory laparotomy back in January 2024 due to small bowel obstruction Surgery at the time noted mesenteric thickening, omental cake and scarring of the appendix due to an inflammatory mass Pathology from the surgery revealed adenocarcinoma, serous carcinoma of mullerian origin She was therefore referred to Gynecologic Oncology for further evaluation and management She was recommended by gynecologic oncology upon consultation to undergo neoadjuvant chemotherapy for treatment of her mesenteric disease and widespread carcinomatosis - patient subsequently started chemotherapy with carboplatin and Taxol every 21 days and was treated as stage III ovarian cancer She did underwent surgical debulking in June 2024 after about 3 to 4 cycles of her chemotherapy -her pathology this time came back as endometrial serous c arcinoma involving the uterine serosa, bilateral ovaries and bilateral fallopian tube Patient states that she completed her chemotherapy about 3 weeks ago and is now on immunosuppressive therapy with an unrecalled medication Follow-up with Gynecologic Oncology as scheduled for continuing management and surveillance (3) Pure hypercholesterolemia: Code(s): E78.00 - Pure hypercholesterolemia, unspecified Category: Medical Plan: Results of her labs done a few days ago reviewed and discussed with patient Reinforced low cholesterol diet Continue Atorvastatin 40 mg QD Will recheck her labs and fasting lipids in about 6 to 8 months for follow up (4) Diabetes mellitus: Code(s): E11.9 - Type 2 diabetes mellitus without complications Category: Medical Qualifiers: Diabetes mellitus type: type 2 Diabetes mellitus retirement insulin use: without retirement use Diabetes mellitus complication status: without complication Qualified Code(s): E11.9 - Type 2 diabetes mellitus without complications Plan: HgbA1c was at 6.0% on her labs done a few days ago (was at 6.7% when previously checked in March 2023 ) - goal is < 7.0% Reinforced?diabetic diet She used to take Metformin ER 500 mg BID but stopped taking it about 2 to 3 months ago and has just been taking an OTC product called Glucocyn 1000 mg 1 t ablet BID to help control her diabetes (5) Subclinical hypothyroidism: Code(s): E03.8 - Other specified hypothyroidism Category: Medical Plan: Her TFTs have again remained normal on her recent labs Continue Levothyroxine 25 mcg QD Will recheck her TFTs again in about 6 months for follow up (6) Allergic rhinitis: Code(s): J30.9 - Allergic rhinitis, unspecified Category: Medical Qualifiers: Allergic rhinitis trigger: unspecified Allergic rhinitis seasonality: unspecified Qualified Code(s): J30.9 - Allergic rhinitis, unspecified Plan: Continue Cetirizine 10 mg QD PRN and Fluticasone nasal spray QD PRN (7) Cervical disc herniation: Comment: S/P ACDF at C3 and C4 with Dr. Humberto Vazquez in 09/2017 Code(s): M50.20 - Other cervical disc displacement, unspecified cervical region Category: Medical Plan: States that her neck pains have remained mostly manageable She has been advised to continue performing the neck exercises that she was previously taught by physical therapy on a regular basis to help manage her neck symptoms Follow up with neurosurgery at [facility] as scheduled She was reportedly sent for a repeat cervical spine MRI at [facility] early last year and was advised that there were no significant changes seen on her recent MRI (8) Vitamin D deficiency: Code(s): E55.9 - Vitamin D deficiency, unspecified Category: Medical Plan: Continue OTC Vitamin D3 2000 units QD Plan Follow up in June 2025 Orders: Orders Comprehensive [place]. Panel Fast 06/17/25 E78.00 - Pure hypercholesterolemia, unspecified Microalbumin, Random (w Creat) 06/17/25 E11.9 - Type 2 diabetes mellitus without complications Thyroid Stimulating Hormone 06/17/25 E03.9 - Hypothyroidism, unspecified Complete Blood Count Auto Diff 06/17/25 D64.9 - Anemia, unspecified Lipid Panel 06/17/25 E78.00 - Pure hypercholesterolemia, unspecified Hemoglobin A1c 06/17/25 E11.9 - Type 2 diabetes mellitus without complications Free T4 (Free Thyroxine) 06/17/25 E03.9 - Hypothyroidism, unspecified UA CC w/rflx Micro + Cult 06/17/25 R30.0 - Dysuria Vitamin B12 and Folate 04/04/26 E53.8 - Deficiency of other specified B group vitamins Vitamin D 25-OH Total 06/17/25 E55.9 - Vitamin D deficiency, unspecified Medications: Changed From levothyroxine Take on an empty stomach, first thing in the morning, with water. Do not eat or drink anything else for 30 minutes afterwards 25 mcg PO DAILY@0600 90 tabs 0RF To levothyroxine Take on an empty stomach, first thing in the morning, with water. Do not eat or drink anything else for 30 minutes afterwards 25 mcg PO DAILY@0600 90 tabs 1RF 90 days
[2024-10-21 12:55] VITALS: BP 130/70; PULSE 65; TEMP 36.3; O2SAT 95; BMI 23.1
== END 2024-10-21 13:44 | disposition home or self-care (01) ==
LOC: HO.HMCH 12:47
PROVIDERS: PCP Internal Medicine; Visit Provider Internal Medicine
DX: Z00.00 Encounter for general adult medical examination without abnormal findings (principal); C56.3 Malignant neoplasm of bilateral ovaries; E78.00 Pure hypercholesterolemia, unspecified; E11.9 Type 2 diabetes mellitus without complications; E03.8 Other specified hypothyroidism; J30.9 Allergic rhinitis, unspecified; M50.20 Other cervical disc displacement, unspecified cervical region; E55.9 Vitamin D deficiency, unspecified

== ENCOUNTER → 2024-10-21 12:46 | Outpatient (BNVA) | payer OTHER, SELFPAY | PROVIDERS: PCP Internal Medicine; Visit Provider Internal Medicine | DX: Z00.00 Encounter for general adult medical examination without abnormal findings (principal); E78.00 Pure hypercholesterolemia, unspecified; E11.9 Type 2 diabetes mellitus without complications; J30.9 Allergic rhinitis, unspecified; M50.20 Other cervical disc displacement, unspecified cervical region; E55.9 Vitamin D deficiency, unspecified; E03.9 Hypothyroidism, unspecified; D64.9 Anemia, unspecified; R30.0 Dysuria; E53.8 Deficiency of other specified B group vitamins; Z85.43 Personal history of malignant neoplasm of ovary | CPT/HCPCS: 96127; 99397 ==